=== PATIENT | female | born 1945 | race Two or more races ===

== ENCOUNTER 2024-03-06 12:46 | Outpatient (REF) | payer MEDICARE, MEDICAID, SELFPAY ==
[2024-03-06 13:19] LABS: Basophils Percent Auto 0.4 % (0.2-2.0); Eosinophils Absolute Auto 0.3 10^3/uL (0.0-0.7); Eosinophils Percent Auto 5.7 % (0.9-7.0); Hematocrit 34.6 % (36.0-48.0); Hemoglobin 10.7 g/dL (12.0-16.0); Immature Granulocytes Abs Auto 0.02 10^3/uL (0.00-0.03); Immature Granulocytes Pct Auto 0.4 % (0.0-0.5); Lymphocytes Absolute Auto 0.9 10^3/uL (1.2-3.8); Lymphocytes Percent Auto 19.4 % (20.5-60.0); Mean Corpuscular HGB Conc 30.9 g/dL (29.9-35.2); Mean Corpuscular Hemoglobin 29.2 pg (26.7-34.0); Mean Corpuscular Volume 94.5 fL (81.0-99.0); Mean Platelet Volume 10.5 fL (9.5-13.5); Monocytes Absolute Auto 0.4 10^3/uL (0.3-0.8); Monocytes Percent Auto 8.3 % (1.7-12.0); Neutrophils Absolute Auto 3.1 10^3/uL (1.4-6.5); Neutrophils Percent Auto 65.8 % (43.0-75.0); Platelet Count 217 10^3/uL (150-450); Red Blood Count 3.66 10^6/uL (4.20-5.40); Red Cell Distribution Width 15.3 % (11.0-15.0); White Blood Count 4.7 10^3/uL (4.0-11.0)
[2024-03-06 13:57] LABS: Alanine Aminotransferase 24 U/L (14-59); Albumin Globulin Ratio 0.4; Albumin Level 1.3 g/dL (3.4-5.0); Alkaline Phosphatase 150 U/L (46-116); Anion Gap 11.1; Aspartate Amino Transferase 29 U/L (15-37); BUN Creatinine Ratio 40.2; Bilirubin Total 0.4 mg/dL (0.2-1.0); Calcium 8.5 mg/dL (8.5-10.1); Carbon Dioxide 26.6 mmol/L (21.0-32.0); Chloride 111 mmol/L (98-107); Estimated GFR (African America 29 (>=60 mL/min/1.73m^2); Estimated GFR (Non-African Ame 24 (>=60 mL/min/1.73m^2); Globulin 3.7 g/dL; Glucose 112 mg/dL (74-106); Magnesium 2.1 mg/dL (1.8-2.4); Phosphorus 4.8 mg/dL (2.6-4.7); Potassium 5.7 mmol/L (3.5-5.1); Sodium 143 mmol/L (136-145)
== END 2024-03-06 12:47 | disposition home or self-care (01) ==
LOC: LAB 12:46
PROVIDERS: PCP Family Medicine; Visit Provider Family Medicine
DX: N17.9 Acute kidney failure, unspecified (principal)
CPT/HCPCS: 36415; 80053; 83735; 83880; 84100; 85025

== ENCOUNTER 2024-03-07 09:53 | Outpatient (REF) | payer MEDICARE, MEDICAID, SELFPAY ==
[2024-03-07 10:48] LABS: Anion Gap 18.1; BUN Creatinine Ratio 48.3; Calcium 8.8 mg/dL (8.5-10.1); Carbon Dioxide 22.6 mmol/L (21.0-32.0); Chloride 108 mmol/L (98-107); Estimated GFR (African America 34 (>=60 mL/min/1.73m^2); Estimated GFR (Non-African Ame 28 (>=60 mL/min/1.73m^2); Glucose 97 mg/dL (74-106); Potassium 5.7 mmol/L (3.5-5.1); Sodium 143 mmol/L (136-145)
== END 2024-03-07 09:54 | disposition home or self-care (01) ==
LOC: LAB 09:53
PROVIDERS: PCP Family Medicine; Visit Provider Family Medicine
DX: E87.5 Hyperkalemia (principal)
CPT/HCPCS: 36415; 80048

== ENCOUNTER 2024-03-15 15:17 | Outpatient (REF) | payer MEDICARE, MEDICAID, SELFPAY ==
--- OUTSIDE RECORDS SUMMARY | 2024-03-15 15:29 | XMS_ITS | CCD ---
Author Organization [facility] Care Team Providers Care Dimensional Inspector Name Role Phone [facility] Primary Care Physician PROVIDER, UNKNOWN Attending Unavailable PROVIDER, UNKNOWN Admitting Unavailable DO Charles Mercado Attending Provider [phone] [facility] Unavail able DO Muriel Le Attending Unavailable [facility] Unavail able DO Muriel Le Attending Unavailable [facility] Primary Care Provider DO Charles Mercado Attending Provider [phone] DO Amalia Mancera Referring Provider [phone] Charles Mercado Admitting Unavailable Cash, Saman Consulting Unavailable [facility] Primary Care Unavaila ble Charles Mercado Attending Unavailable Charles Mercado Admitting Unavailable [facility] Primary Care Unavaila ble Calderon Amalia Referring Unavailable Charles Mercado Attending Unavailable [facility] Primary Care Unavail able MD Rodriguez Zambrano Consulting Unavailable DANIELLE Mbsuki Admitting Unavailable DANIELLE Mbmarlinfo Attending Unavailable Betancor, Rodriguez Consulting Unavailable Betancor, Rodriguez Consulting Unavailable Fatmataor, Rodriguez Consulting Unavailable MD Tom Abreuapna Consulting Unavailable Shyamadana, Stefanie Consulting Unavailable Brady, Stefanie Consulting Unavailable MD Stefanie Abreu Consulting Unavailable [id number] Primary Care Unavail able DANIELLE Mbanefo Attending Unavailable YESSENIAKWNaeem Mbanefo Admitting Unavailable Kamadana, Stefanie Consulting Unavailable Kamadana, Stefanie Consulting Unavailable Kamadana, Stefanie Consulting Unavailable Soren Moore Attending Unavailable Unavailable Primary Care Provider Unavailabl e Allergies Allergy Classification Reported Allergen(s) Allergy Type Date of Onset Reaction(s) Facility (10 sources) Ampicillin; Translations: [ampicillin] Drug Allergy Anaphylaxis (disorder) [facility] Medications Current Medications Medication Drug Class(es) Dates Sig (Normalized) Sig (Original) albuterol 0.83 mg/ml inhalation solution (2 sources) beta2-Adrenergic Agonist Start: 12-27-2016 albuterol 0.083% Inh Madai 3 mL 2.5 mg, 3 mL, Inhalation, QID, 60 EA, Refill(s) 0, ICD 10 code- J45.901 Cancel previous order of albuterol, [facility] Start Date: 12/27/16 Status: Ordered aspirin 81 mg oral tablet (2 sources) Platelet Aggregation Inhibitor, Nonsteroidal Anti-inflammatory Drug Start: 12-26-2016 take 1 tablet by mouth once daily aspirin 81 mg oral tablet 81 mg = 1 tab(s), Oral, Daily, # 90 tab(s), Refills(s) 0 Start Date: 12/26/16 Status: Ordered atorvastatin 40 mg oral tablet (2 sources) HMG-CoA Reductase Inhibitor Start: 07-29-2014 take 1 tablet by mouth once daily atorvastatin 40 mg Tab 40 mg = 1 tab(s), Oral, Daily, # 90 tab(s), Refills(s) 0 Start Date: 07/29/14 Status: Ordered Calcium (2 sources) Phosphate Binder, Calcium Start: 01-06-2010 Calcium 600+D Oral, Daily Start Date: 01/06/10 Status: Ordered Check BMP in 3-5 days (2 sources) Start: 12-27-2016 Check BMP in 3-5 days Check BMP in 3-5 days, Fax results to primary care physician. Diagnoses : Acute kidney injury, Print Requisition, Supply Start Date: 12/27/16 Status: Ordered doxycycline hyclate 100 mg oral tablet (1 source) Tetracycline-clas s Drug Start: 10-01-2023 End: 10-11-2023 take 1 tablet by mouth every twelve hours doxycycline hyclate 100 mg Tab 100 mg = 1 tab(s), Oral, q12hr, X 10 day(s), # 20 tab(s), Refills(s) 0, Pharmacy: [facility], 152, cm, 10/01/23 21:34:00 EDT, Height/Length Dosing, 155, kg, 10/01/23 21:34:00 EDT, Weight Dosing Start Date: 10/01/23 Stop Date: 10/11/23 Status: Ordered hydroCHLOROthiazide 25 mg / lisinopril 20 mg oral tablet (2 sources) Thiazide Diuretic, Angiotensin Converting Enzyme Inhibitor Start: 01-06-2010 take 1 tablet by mouth once daily hydrochlorothiazi de-lisinopril 25 mg-20 mg Tab 1 tab(s), Oral, Daily Start Date: 01/06/10 Status: Ordered loratadine 10 mg oral tablet (2 sources) Start: 01-06-2010 take 1 tablet by mouth once daily loratadine 10 mg Tab 10 mg = 1 tab(s), Oral, Daily Start Date: 01/06/10 Status: Ordered meloxicam 15 mg oral tablet (2 sources) Nonsteroidal Anti-inflammatory Drug Start: 07-29-2014 meloxicam 15 mg oral tablet 15 mg = 1 tab(s), Refills(s) 0 Start Date: 07/29/14 Status: Ordered naproxen 500 mg oral tablet (1 source) Nonsteroidal Anti-inflammatory Drug Start: 10-01-2023 take 1 tablet by mouth twice daily as needed for pain Naprosyn 500 mg Tab 500 mg = 1 tab(s), Oral, BID, PRN for pain, # 20 tab(s), Refills(s) 0, Pharmacy: [facility], 152, cm, 10/01/23 21:34:00 EDT, Height/Length Dosing, 155, kg, 10/01/23 21:34:00 EDT, Weight Dosing Start Date: 10/01/23 Status: Ordered traMADol hydrochloride 50 mg oral tablet (2 sources) Opioid Agonist Start: 07-29-2014 take 1 tablet by mouth every twelve hours as needed for pain traMADOL 50 mg Tab 50 mg = 1 tab(s), Oral, q12hr, PRN for pain, # 30 tab(s), Refills(s) 0 Start Date: 07/29/14 Status: Ordered Problems Problem Classification Problem Date Documented Date Episodic/Chronic Acute and unspecified renal failure (7 sources) Acute kidney failure, unspecified; Translations: [N17.9] Onset: 02-23-2024 Episodic Asthma (2 sources) Asthma 06-01-2013 Chronic Bacterial infection; unspecified site (2 sources) Rheumatic fever 06-01-2013 Episodic Blindness and vision defects (1 source) Visual disturbance; Translations: [Unspecified visual disturbance] Onset: 10-19-2021 Episodic Cardiac dysrhythmias (1 source) Unspecified atrial fibrillation; Translations: [Unspecified atrial fibrillation] Onset: 10-18-2021 Chronic Disorders of lipid metabolism (3 sources) Hypercholesterolemia; Translations: [Pure hypercholesterolemia, unspecified] Onset: 01-19-2023 06-01-2013 Chronic Esophageal disorders (2 sources) Gastroesophageal reflux disease 06-01-2013 Chronic Essential hypertension (2 sources) Hypertensive disorder 12-28-2009 Chronic Malaise and fatigue (14 sources) Weakness; Translations: [Other malaise] Onset: 02-23-2024 Episodic Nonmalignant breast conditions (1 source) Mastodynia; Translations: [Mastodynia] Onset: 11-22-2023 Episodic Osteoarthritis (1 source) Localized, primary osteoarthritis of the shoulder region; Translations: [Primary osteoarthritis, unspecified shoulder] Onset: 10-01-2023 Chronic Other nutritional; endocrine; and metabolic disorders (2 sources) Obesity 09-07-2013 Chronic Other nutritional; endocrine; and metabolic disorders (7 sources) Other disorders of plasma-protein metabolism, not elsewhere classified; Translations: [E88.09] Onset: 02-23-2024 Chronic Skin and subcutaneous tissue infections (1 source) Cellulitis of abdominal wall ; Translations: [Cellulitis of abdominal wall] Onset: 10-01-2023 Episodic Unclassified (1 source) GALL BLADDER( Confirmed ) 12-31-2009 Unclassified (1 source) GALL BLADDER 12-31-2009 Unclassified (1 source) Morbid (severe) obesity due to excess calories; Translations: [Morbid (severe) obesity due to excess calories] Onset: 01-19-2023 Varicose veins of lower extremity (7 sources) 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; Translations: [I83.009] Onset: 02-23-2024 Episodic Results Test Name Value Interpretation Reference Range Facility ALL BASIC METABOLIC PANELon 03-07-2024 Anion gap [Moles/Vol] 18.1 mmol/L NO [facility] Calcium [Mass/Vol] 8.8 mg/dL 8.5 - 10. 1 mg/dL [facility] Chloride [Moles/Vol] 108 mmol/L High 98 - 10 7 mmol/L [facility] CO2 [Moles/Vol] 22.6 mmol/L 21.0 - 32.0 mmol/L [facility] Creatinine [Mass/Vol] 1.74 mg/dL High 0.55 - 1.02 mg/dL [facility] GFR/1.73 sq M.predicted CKD-EPI (S/P/Bld) [Vol rate/Area] 34 Low >=60 mL/min/1.73 m 2 [facility] Glucose [Mass/Vol] 97 mg/dL 74 - 106 mg/dL [facility] Interpretation and review of laboratory results Abnormal [facility] Potassium [Moles/Vol] 5.7 mmol/L High 3.5 - 5.1 mmol/L [facility] Sodium [Moles/Vol] 143 mmol/L 136 - 145 mmol/L [facility] TBH EGFR-NON AF CHILEAN 28 Low >=60 mL/min/1.73 m 2 [facility] Urea nitrogen [Mass/Vol] 84 mg/dL Critically high 7.0 - 18.0 mg/dL [facility] Comment on above: RESULTS CALLED TO GREGORY MASCORRO RN at 1120 Urea nitrogen/Creatinine [Mass ratio] 48.3 mg/mg [facility] ALL CBC WITH AUTO DIFFon BASOPHILS ABSOLUTE AUTO 0 N [facility] Basophils/100 WBC (Bld) 0.4 % 0.2 - 2.0 % [facility] Eosinophils/100 WBC (Bld) 5.7 % 0.9 - 7.0 % [facility] Erythrocyte distribution width (RBC) [Ratio] 15.3 % High 11.0 - 15.0 % [facility] Hematocrit (Bld) [Volume fraction] 34.6 % Low 36.0 - 48.0 % [facility] Hemoglobin (Bld) [Mass/Vol] 10.7 g/dL Low 12.0 - 16.0 g/dL [facility] IMMATURE GRANULOCYTES ABS AUTO 0.02 [facility] Immature granulocytes/100 WBC (Bld) 0.4 % 0.0 - 0.5 % [facility] Interpretation and review of laboratory results Abnormal [facility] LYMPHOCYTES ABSOLUTE AUTO 0.9 Low [facility] Lymphocytes/100 WBC (Bld) 19.4 % Low 20.5 - 60.0 % [facility] MCH (RBC) [Entitic mass] 29.2 pg 26.7 - 34.0 pg [facility] MCHC (RBC) [Mass/Vol] 30.9 g/dL 29.9 - 35.2 g/dL [facility] MCV (RBC) [Entitic vol] 94.5 fL 81.0 - 99.0 fL [facility] MONOCYTES ABSOLUTE AUTO 0.4 N [facility] Monocytes/100 WBC (Bld) 8.3 % 1.7 - 12.0 % [facility] NEUTROPHILS ABSOLUTE AUTO 3.1 [facility] Neutrophils/100 WBC (Bld) 65.8 % 43.0 - 75.0 % [facility] Platelet mean volume (Bld) [Entitic vol] 10.5 fL 9.5 - 13.5 fL [facility] EO # 0.3 [facility] PLT 217 [facility] RBC 3.66 Low [facility] WBC 4.7 [facility] Immunoglobs. A/E/G/Mon 03-05 IgA Quant duplicate Invalid Interpretation Code [facility] Comment on above: Performed By: #### 1 [id number] #### [facility] [address] [place] [address] IgG Quant duplicate Invalid Interpretation Code [facility] Comment on above: Performed By: #### 1 [id number] #### [facility] [address] [place] [address] IgM Quant duplicate Invalid Interpretation Code [facility] Comment on above: Performed By: #### 1 [id number] #### [facility] [address] [place] [address] MANDI w/Reflex if POSon 2023 Nuclear Ab Ql (S) Negative Invalid Interpretation Code Negative [facility] Comment on above: Result Comment: Perf ormed at: [facility] [address] [place], [place] [id number] PhD Meme Becker Performed By: #### 1 [id number] #### [facility] [address] [place] [id number] ANCAon 03-01-2024 Neutrophil cytoplasmic Ab.classic IF (S) [Titer] <1:20 Invalid Interpretation Code Neg:<1:20 [facility] Comment on above: Performed By: #### 2 [id number] #### [facility] [address] [place] [address] Neutrophil cytoplasmic Ab.perinuclear IF (S) [Titer] <1:20 Invalid Interpretation Code Neg:<1:20 [facility] Comment on above: Result Comment: The presence of positive fluorescence exhibiting P-ANCA or C-ANCA patterns alone is not specific for the diagnosis of Patricia's Granulomatosis (WG) or microscopic polyangiitis. Decisions about treatment should not be based solely on ANCA IFA results. The International ANCA [employer] Consensus recommends follow up testing of positive sera with both CO-3 and MPO-ANCA enzyme immunoassays. As many as 5% serum samples are positive only by EIA. Ref. AM J Clin Pathol 1999;111:507-513. Performed By: #### 2 [id number] #### [facility] [address] [place] [address] Neutrophil cytoplasmic Ab.perinuclear.atypical IF (S) [Titer] <1:20 Invalid Interpretation Code Neg:<1:20 [facility] Comment on above: Result Comment: The atypical pANCA pattern has been observed in a significant percentage of patients with ulcerative colitis, primary sclerosing cholangitis and autoimmune hepatitis. Performed at: [facility] [id number] PhD Meme Becker Performed By: #### 2 [id number] #### [facility] [address] [place] [address] C3on 03-01-2024 Complement C3 [Mass/Vol] 150 mg/dL Invalid Interpretation Code [id number] [facility] Comment on above: Result Comment: Perf ormed at: [facility] [id number] PhD Meme Becker Performed By: #### 2 [id number] #### [facility] [address] [place] [address] C4on 03-01-2024 Complement C4 [Mass/Vol] 23 mg/dL Invalid Interpretation Code [facility] Comment on above: Result Comment: Perf ormed at: [facility] [address], [place] [id number] PhD Meme Becker Performed By: #### 2 [id number] #### [facility] [address] [place] [address] Immunofixation Serumon 03-01 IgA [Mass/Vol] 467 mg/dL High 64-422 [facility] Comment on above: Performed By: #### 1 [id number] #### [facility] [address] [place] [address] IgG [Mass/Vol] 892 mg/dL Invalid Interpretation Code [id number] [facility] Comment on above: Performed By: #### 1 [id number] #### [facility] [address] [place] [address] IgM [Mass/Vol] 132 mg/dL Invalid Interpretation Code [facility] Comment on above: Result Comment: Perf ormed at: [facility] [address], [place] [id number] PhD Meme Becker Performed By: #### 1 [id number] #### [facility] [address] [place] [address] Protein Fractions [Interp] Comment Invalid Interpretation Code [facility] Comment on above: Result Comment: No m onoclonality detected. Performed By: #### 1 [id number] #### [facility] [address] [place] [address] Immunoglobs. A/E/G/Mon 03-01 IgE Qn 4437 International_Unit/mL High 6-495 [facility] Comment on above: Result Comment: Perf ormed at: [facility] [id number] MD Mario Lundberg Performed By: #### 1 [id number] #### [facility] [address] [place] [address] BMPon 02-29-2024 Anion gap [Moles/Vol] 7 mmol/L Normal 6-16 [facility] Comment on above: Performed By: #### 2 [id number] #### [facility] [address] [place] [address] Calcium [Mass/Vol] 7.7 mg/dL Low 8.9-11.1 [facility] Comment on above: Performed By: #### 2 [id number] #### [facility] [address] [place] [address] Chloride [Moles/Vol] 106 mmol/L Normal 101-111 [facility] Comment on above: Performed By: #### 2 [id number] #### [facility] [address] [place] [address] CO2 [Moles/Vol] 26 mmol/L Normal 21-31 [facility] Comment on above: Performed By: #### 2 [id number] #### [facility] [address] [place] [address] Creatinine [Mass/Vol] 1.5 mg/dL High 0.5-1.3 [facility] Comment on above: Performed By: #### 2 [id number] #### [facility] [address] [place] [address] Glucose [Mass/Vol] 100 mg/dL Normal 55-199 [facility] Comment on above: Performed By: #### 2 [id number] #### [facility] [address] [place] [address] Potassium [Moles/Vol] 4.7 mmol/L Normal 3.5-5.3 [facility] Comment on above: Performed By: #### 2 [id number] #### [facility] [address] [place] [address] Sodium [Moles/Vol] 134 mmol/L Low 135-145 [facility] Comment on above: Performed By: #### 2 [id number] #### [facility] [address] [place] [address] Urea nitrogen [Mass/Vol] 67 mg/dL High 5-21 [facility] Comment on above: Performed By: #### 2 [id number] #### [facility] [address] [place] [address] Urea nitrogen/Creatinine [Mass ratio] 45 No Units High 10-20 [facility] Comment on above: Performed By: #### 2 [id number] #### [facility] [address] [place] [address] Discharge Note-Nursingon Discharge Note-Nursing Discharge Note-Nursing JACLYN AN :1945 Visit Date:02/23/2024 Inpatient Discharge Instructions Your Care Team Admitting Physician - Zoe SANTOS MD Consulting Physician - Stefanie Abreu MD Reason for Your Visit Pt presents to ED with complaints of increased leg edema/weeping. Pt also concerned about living situation as unable to perfom ADL's-family typically helps care for pt and per pt they aren't helping enough. wanting SNF Your Diagnosis TATYANA (acute kidney injury) ATN (acute tubular necrosis) Proteinuria Vitamin D deficiency UTI (urinary tract infection) with pyuria Clostridium difficile diarrhea Hypocalcemia General weakness Physical deconditioning Hypothyroidism Venous ulcer of leg Hypoalbuminemia Troponin level elevated Atrial fibrillation HTN - Hypertension Hypercholesterolemia Morbid obesity Abdominal pain Edema Medical problem - minor Suicidal ideation Tests Performed MANDI w/Reflex if POS -- Results Pending -- ANCA -- Results Pending -- C3 Complement -- Results Pending -- C4 Complement -- Results Pending -- Immunofixation Serum -- Results Pending -- Immunofixation, Urine -- Results Pending -- Immunoglobs. A/E/G/M -- Results Pending -- Echo Transthoracic w/ Contrast Lower Extremity Venous Duplex US Bilateral US PVR Lower EXT Limited US Renal XR Chest Single View Please visit your patient portal for your results or contact your primary care physician. This Is Your Medications List Ensure acetaminophen (acetaminophen 325 mg Tab) albuterol (albuterol 0.083% Inh Madai 3 mL) albuterol (albuterol 0.083% Inh Madai 3 mL) apixaban (apixaban 5 mg oral tablet) aspirin (aspirin 81 mg oral tablet) atorvastatin (atorvastatin 40 mg Tab) calcium carbonate (calcium carbonate 500 mg Chew Tab) calcium-vitamin D (Calcium 600+D) ergocalciferol (ergocalciferol 50,000 intl units Cap) levothyroxine (levothyroxine 25 mcg (0.025 mg) Tab) loratadine (loratadine 10 mg Tab) vancomycin (vancomycin 125 mg Cap) [Image Removed: STOP]Stop taking these medications lisinopril (lisinopril 40 mg Tab) Procedure History C SECTION. Discharge Vitals Temperature (Axillary) 36.7 ???C Heart Rate (Monitored) 78 Respiratory Rate 17 Blood Pressure 119/73 Weight 162.2 kg What to do next Instructions From Your Doctor Event Name Event Result Discharge Activity Ambulate as tolerated Discharge Restrictions No restrictions Discharge Diet(s) Fat Modified- 50 gram, Low Sodium- 2000 mg, Other: Ensure TID meals Pending Diagnostic Test Results None Discharge Instructions FU with PCP on discharge- apt with depot agent on 04/11/24 at 0900- call office to confirm location and provider New Follow Up Appointments after Discharge Follow Up with Amanda DASH, [facility] When: 04/11/2024 09:00 AM EST Comments: *Call the office to confirm this is at [facility] Where: [place] [address]- Follow Up with Primary Care Provider When: Within 3 to 5 days Where: Medications What How Much When Instructions Next Dose New apixaban (apixaban 5 mg oral tablet) 1 Tablets By Mouth 2 times a day New calcium carbonate (calcium carbonate 500 mg Chew Tab) 1 Tablets By Mouth 2 times a day New Ensure 237 Milliliter By Mouth Twice a day (with meals) New ergocalciferol (ergocalciferol 50,000 intl units Cap) 1 Capsules By Mouth Tuesday & Tuesday New levothyroxine (levothyroxine 25 mcg (0.025 mg) Tab) 1 Tablets By Mouth Every day New vancomycin (vancomycin 125 mg Cap) 1 Capsules By Mouth 4 times a day Duration: 10 Days To complete 14 day course Changed albuterol (albuterol 0.083% Inh Madai 3 mL) 3 Milliliter Inhalation Every 2 hours as needed for Wheezing Changed albuterol (albuterol 0.083% Inh Madai 3 mL) 3 Milliliter Inhalation 4 times a day Unchanged acetaminophen (acetaminophen 325 mg Tab) 2 Tablets By Mouth Every 6 hours as needed for for pain Unchanged aspirin (aspirin 81 mg oral tablet) 1 Tablets By Mouth Every day Unchanged atorvastatin (atorvastatin 40 mg Tab) 1 Tablets By Mouth Every day Unchanged calcium-vitamin D (Calcium 600+D) 1 Tablets By Mouth Every day Unchanged loratadine (loratadine 10 mg Tab) 1 Tablets By Mouth Every day as needed for Allergy symptoms What How Much When Comments Stop Taking lisinopril (lisinopril 40 mg Tab) 1 Tablets By Mouth Every day Test Results CBC BMP WBC: 4.2 E9/L (02/28/24 06:01:00) Glucose Lvl: 100 mg/dL (02/29/24 06:13:00) RBC: 3.7 E12/L Low (02/28/24 06:01:00) BUN: 67 mg/dL High (02/29/24 06:13:00) HGB: 11.2 gm/dL Low (02/28/24 06:01:00) Creatinine: 1.5 mg/dL High (02/29/24 06:13:00) Hct: 33.1 % Low (02/28/24 06:01:00) BUN/Creat Ratio: 45 High (02/29/24 06:13:00) MCV: 89 fL (02/28/24 06:01:00) Sodium Lvl: 134 mmol/L Low (02/29/24 06:13:00) MCH: 30.2 pg (02/28/24 06:01:00) Potassium Lvl: 4.7 mmol/L ( (more content not included)... Normal [facility] [place] 02-29-2024 WB Tube Collected Yes Invalid Interpretation Code [facility] Comment on above: Performed By: #### 1 [id number] #### [facility] [address] [place] [id number] Immunofixation, Urineon 02-18 Interpretation Immunofixation (U) [Interp] Comment Invalid Interpretation Code [facility] Comment on above: Result Comment: No m onoclonality detected. Performed at: [facility], [place] [id number] PhD Meme Becker Performed By: #### 3 [id number] #### [facility] [address] [place] [address] Inpatient Patient Summaryon 02-29-2024 Inpatient Patient Summary Inpatient Patient Summary JACLYN AN :1945 Visit Date:02/23/2024 Inpatient Discharge Instructions Your Care Team Admitting Physician - Zoe SANTOS MD Consulting Physician - Stefanie Abreu MD Reason for Your Visit Pt presents to ED with complaints of increased leg edema/weeping. Pt also concerned about living situation as unable to perfom ADL's-family typically helps care for pt and per pt they aren't helping enough. wanting SNF Your Diagnosis TATYANA (acute kidney injury) ATN (acute tubular necrosis) Proteinuria Vitamin D deficiency UTI (urinary tract infection) with pyuria Clostridium difficile diarrhea Hypocalcemia General weakness Physical deconditioning Hypothyroidism Venous ulcer of leg Hypoalbuminemia Troponin level elevated Atrial fibrillation HTN - Hypertension Hypercholesterolemia Morbid obesity Abdominal pain Edema Medical problem - minor Suicidal ideation Tests Performed MANDI w/Reflex if POS -- Results Pending -- ANCA -- Results Pending -- C3 Complement -- Results Pending -- C4 Complement -- Results Pending -- Immunofixation Serum -- Results Pending -- Immunofixation, Urine -- Results Pending -- Immunoglobs. A/E/G/M -- Results Pending -- Echo Transthoracic w/ Contrast Lower Extremity Venous Duplex US Bilateral US PVR Lower EXT Limited US Renal XR Chest Single View Please visit your patient portal for your results or contact your primary care physician. This Is Your Medications List Ensure acetaminophen (acetaminophen 325 mg Tab) albuterol (albuterol 0.083% Inh Madai 3 mL) albuterol (albuterol 0.083% Inh Madai 3 mL) apixaban (apixaban 5 mg oral tablet) aspirin (aspirin 81 mg oral tablet) atorvastatin (atorvastatin 40 mg Tab) calcium carbonate (calcium carbonate 500 mg Chew Tab) calcium-vitamin D (Calcium 600+D) ergocalciferol (ergocalciferol 50,000 intl units Cap) levothyroxine (levothyroxine 25 mcg (0.025 mg) Tab) loratadine (loratadine 10 mg Tab) vancomycin (vancomycin 125 mg Cap) [Image Removed: STOP]Stop taking these medications lisinopril (lisinopril 40 mg Tab) Procedure History C SECTION. Discharge Vitals Temperature (Axillary) 36.7 ???C Heart Rate (Monitored) 78 Respiratory Rate 17 Blood Pressure 119/73 Weight 162.2 kg What to do next Instructions From Your Doctor Event Name Event Result Discharge Activity Ambulate as tolerated Discharge Restrictions No restrictions Discharge Diet(s) Fat Modified- 50 gram, Low Sodium- 2000 mg, Other: Ensure TID meals Pending Diagnostic Test Results None Discharge Instructions FU with PCP on discharge- apt with depot agent on 04/11/24 at 0900- call office to confirm location and provider New Follow Up Appointments after Discharge Follow Up with Amanda DASH, MARIO Singh When: 04/11/2024 09:00 AM EST Comments: *Call the office to confirm this is at [facility] Where: [place] [address]- Follow Up with Primary Care Provider When: Within 3 to 5 days Where: Medications What How Much When Instructions Next Dose New apixaban (apixaban 5 mg oral tablet) 1 Tablets By Mouth 2 times a day 02/28 @ 0900pm New calcium carbonate (calcium carbonate 500 mg Chew Tab) 1 Tablets By Mouth 2 times a day 02/28 @ 0900pm New Ensure 237 Milliliter By Mouth Twice a day (with meals) 02/28 @ 0500pm New ergocalciferol (ergocalciferol 50,000 intl units Cap) 1 Capsules By Mouth Tuesday & Friday 03/02 @ 0900am New levothyroxine (levothyroxine 25 mcg (0.025 mg) Tab) 1 Tablets By Mouth Every day 02/28 @ 0900am New vancomycin (vancomycin 125 mg Cap) 1 Capsules By Mouth 4 times a day Duration: 10 Days To complete 14 day course 02/28 @ 0100pm,0500pm Changed albuterol (albuterol 0.083% Inh Madai 3 mL) 3 Milliliter Inhalation Every 2 hours as needed for Wheezing as needed Changed albuterol (albuterol 0.083% Inh Madai 3 mL) 3 Milliliter Inhalation 4 times a day resume Unchanged acetaminophen (acetaminophen 325 mg Tab) 2 Tablets By Mouth Every 6 hours as needed for for pain as needed Unchanged aspirin (aspirin 81 mg oral tablet) 1 Tablets By Mouth Every day 02/28 @ 0900am Unchanged atorvastatin (atorvastatin 40 mg Tab) 1 Tablets By Mouth Every day 02/28 @ 0900am Unchanged calcium-vitamin D (Calcium 600+D) 1 Tablets By Mouth Every day 02/28 @ 00am Unchanged loratadine (loratadine 10 mg Tab) 1 Tablets By Mouth Every day as needed for Allergy symptoms as needed What How Much When Comments Stop Taking lisinopril (lisinopril 40 mg Tab) 1 Tablets By Mouth Every day Test Results CBC BMP WBC: 4.2 E9/L (02/28/24 06:01:00) Glucose Lvl: 100 mg/dL (02/29/24 06:13:00) RBC: 3.7 E12/L Low (02/28/24 06:01:00) BUN: 67 mg/dL High (02/29/24 06:13:00) HGB: 11.2 gm/dL Low (02/28/24 06:01:00) Creatinine: 1.5 mg/dL High (02/29/24 06:13:00) Hct: 33.1 % Low (02/28/24 06:01:00) BUN/Creat (more content not included)... Normal [facility] Interdisciplinary Note - Pablo e Manageron 02-29-2024 Interdisciplinary Note - Brand Marketing Coordinator Interdisciplinary Note - Brand Marketing Coordinator This SW met with patient today to let her know that [facility] had accepted and precert was obtained. She was made aware of the plan for d/c today. IMM discussed and patient voiced understanding of her rights. TC placed to patient's granddaughter and a message was left for her letting her know of the plan for d/c. Normal [facility] Comment on above: Result Comment: Elec tronically Signed By: An MAE, Jailyn Sharma\.yolanda\Date and Time Signed: 02/29/24 12:46 EST eGFRon 02-29-2024 eGFR 36 mL/min/1.73 m2 Low >=59 [facility] Comment on above: Performed By: #### 1 [id number] #### [facility] [address] [place] [address] CBC w/ Auto Diffon 4 Basophils/100 WBC (Bld) 0.5 % Normal 0.0-2.0 [facility] Comment on above: Performed By: #### 2 [id number] #### [facility] [address] [place] [address] Basophils/Leukocytes Auto (Bld) [Pure # fraction] 0.0 E9/L Normal 0.0-0.2 [facility] Comment on above: Performed By: #### 2 [id number] #### [facility] [address] [place] [address] Eosinophils (Bld) [#/Vol] 0.5 E9/L Normal 0.0-0.5 [facility] Comment on above: Performed By: #### 2 [id number] #### [facility] [address] [place] [address] Eosinophils/100 WBC (Bld) 11.1 % High 0.0-8.0 [facility] Comment on above: Performed By: #### 2 [id number] #### [facility] [address] [place] [address] Erythrocyte distribution width (RBC) [Ratio] 15.3 % High 10.9-14.2 [facility] Comment on above: Performed By: #### 2 [id number] #### [facility] [address] [place] [address] Hematocrit (Bld) [Volume fraction] 33.1 % Low 34.0-46.0 [facility] Comment on above: Performed By: #### 2 [id number] #### [facility] [address] [place] [address] Hemoglobin (Bld) [Mass/Vol] 11.2 g/dL Low 12.0-16.0 [facility] Comment on above: Performed By: #### 2 [id number] #### [facility] [address] [place] [address] Lymphocytes (Bld) [#/Vol] 1.1 E9/L Normal 1.0-4.0 [facility] Comment on above: Performed By: #### 2 [id number] #### [facility] [address] [place] [address] Lymphocytes/100 WBC (Bld) 25.9 % Normal 14.0-50.0 [facility] Comment on above: Performed By: #### 2 [id number] #### [facility] [address] [place] [address] MCH (RBC) [Entitic mass] 30.2 pg Normal 27.0-34.0 [facility] Comment on above: Performed By: #### 2 [id number] #### [facility] [address] [place] [address] MCHC (RBC) [Mass/Vol] 34.0 g/dL Normal 31.4-36.0 [facility] Comment on above: Performed By: #### 2 [id number] #### [facility] [address] [place] [address] MCV (RBC) [Entitic vol] 89.0 fL Normal 80.0-100.0 [facility] Comment on above: Performed By: #### 2 [id number] #### [facility] [address] [place] [address] Monocytes (Bld) [#/Vol] 0.4 E9/L Normal 0.2-1.0 [facility] Comment on above: Performed By: #### 2 [id number] #### [facility] [address] [place] [address] Neutrophils (Bld) [#/Vol] 2.2 E9/L Normal 2.0-7.5 [facility] Comment on above: Performed By: #### 2 [id number] #### [facility] [address] [place] [address] Neutrophils/100 WBC (Bld) 53.5 % Normal 36.0-75.0 [facility] Comment on above: Performed By: #### 2 [id number] #### [facility] [address] [place] [address] Platelet mean volume (Bld) [Entitic vol] 8.7 fL Normal 6.4-10.8 [facility] Comment on above: Performed By: #### 2 [id number] #### [facility] [address] [place] [address] Platelets (Bld) [#/Vol] 191.0 E9/L Normal 150.0-500.0 [facility] Comment on above: Performed By: #### 2 [id number] #### [facility] [address] [place] [address] RBC (Bld) [#/Vol] 3.7 E12/L Low 4.3-5.9 [facility] Comment on above: Performed By: #### 2 [id number] #### [facility] [address] [place] [address] WBC corrected for nucl RBC Auto (Bld) [#/Vol] 4.2 E9/L Normal 4.0-11.0 [facility] Comment on above: Performed By: #### 2 [id number] #### [facility] [address] [place] [address] CMPon 02-28-2024 Albumin [Mass/Vol] 1.8 g/dL Low 3.3-5.0 [facility] Comment on above: Performed By: #### 2 [id number] #### [facility] [address] [place] [address] Albumin/Globulin (S) [Mass conc ratio] 0.6 Low 1.1-2.2 [facility] Comment on above: Performed By: #### 2 [id number] #### [facility] [address] [place] [address] ALP [Catalytic activity/Vol] 102 Int._Unit/L High 21-98 [facility] Comment on above: Performed By: #### 2 [id number] #### [facility] [address] [place] [address] ALT No additional P-5'-P [Catalytic activity/Vol] 13 Int._Unit/L Normal 6-46 [facility] Comment on above: Performed By: #### 2 [id number] #### [facility] [address] [place] [address] Anion gap [Moles/Vol] 6 mmol/L Normal 6-16 [facility] Comment on above: Performed By: #### 2 [id number] #### [facility] [address] [place] [address] AST [Catalytic activity/Vol] 19 Int._Unit/L Normal 5-43 [facility] Comment on above: Performed By: #### 2 [id number] #### [facility] [address] [place] [address] Bilirubin [Mass/Vol] 0.5 mg/dL Normal 0.0-1.1 [facility] Comment on above: Performed By: #### 2 [id number] #### [facility] [address] [place] [address] Calcium [Mass/Vol] 7.6 mg/dL Low 8.9-11.1 [facility] Comment on above: Performed By: #### 2 [id number] #### [facility] [address] [place] [address] Chloride [Moles/Vol] 108 mmol/L Normal 101-111 [facility] Comment on above: Performed By: #### 2 [id number] #### [facility] [address] [place] [address] CO2 [Moles/Vol] 27 mmol/L Normal 21-31 [facility] Comment on above: Performed By: #### 2 [id number] #### [facility] [address] [place] [address] Creatinine [Mass/Vol] 1.4 mg/dL High 0.5-1.3 [facility] Comment on above: Performed By: #### 2 [id number] #### [facility] [address] [place] [address] Globulin (S) [Mass/Vol] 2.8 g/dL Normal 1.4-4.0 [facility] Comment on above: Performed By: #### 2 [id number] #### [facility] [address] [place] [address] Glucose [Mass/Vol] 96 mg/dL Normal 55-199 [facility] Comment on above: Performed By: #### 2 [id number] #### [facility] [address] [place] [address] Potassium [Moles/Vol] 4.6 mmol/L Normal 3.5-5.3 [facility] Comment on above: Performed By: #### 2 [id number] #### [facility] [address] [place] [address] Protein [Mass/Vol] 4.6 g/dL Low 6.0-7.8 [facility] Comment on above: Performed By: #### 2 [id number] #### [facility] [address] [place] [address] Sodium [Moles/Vol] 136 mmol/L Normal 135-145 [facility] Comment on above: Performed By: #### 2 [id number] #### [facility] [address] [place] [address] Urea nitrogen [Mass/Vol] 68 mg/dL High 5-21 [facility] Comment on above: Performed By: #### 2 [id number] #### [facility] [address] [place] [address] Urea nitrogen/Creatinine [Mass ratio] 49 No Units High 10-20 [facility] Comment on above: Performed By: #### 2 [id number] #### [facility] [address] [place] [address] Interdisciplinary Note - Pablo e Manageron 02-28-2024 Interdisciplinary Note - Brand Marketing Coordinator Interdisciplinary Note - Brand Marketing Coordinator This SW was informed by [facility] this morning that they no longer have a bed available for patient at this time, therefore they will not be submitting for a new precert at this time. Per Hospitalist, patient likely will be ready for d/c either later today or tomorrow. SW sent referral to patient/family's 3rd choice of [facility] for review and it is pending. Per Hospitalist, patient somewhat confused at this time so SW followed up with family about this change of SNF. SW called Miriam and explained the situation to her. She voiced understanding and was agreeable to [facility]. SW let her know to contact SW if patient's son and DIL wanted a different facility, however she didn't think they would since she resides in [place] and can visit patient there. [facility] has accepted patient, pending precert. Normal [facility] Comment on above: Result Comment: Elec tronically Signed By: An MARTINEZW, Jailyn Sharma\.br\Date and Time Signed: 02/28/24 14:03 EST eGFRon 02-28-2024 eGFR 39 mL/min/1.73 m2 Low >=59 [facility] Comment on above: Performed By: #### 1 [id number] #### [facility] [address] [place] [address] BMPon 02-27-2024 Anion gap [Moles/Vol] 7 mmol/L Normal 6-16 [facility] Comment on above: Performed By: #### 2 [id number] #### [facility] [address] [place] [address] Calcium [Mass/Vol] 7.6 mg/dL Low 8.9-11.1 [facility] Comment on above: Performed By: #### 2 [id number] #### [facility] [address] [place] [address] Chloride [Moles/Vol] 107 mmol/L Normal 101-111 [facility] Comment on above: Performed By: #### 2 [id number] #### [facility] [address] [place] [address] CO2 [Moles/Vol] 27 mmol/L Normal 21-31 [facility] Comment on above: Performed By: #### 2 [id number] #### [facility] [address] [place] [address] Creatinine [Mass/Vol] 1.7 mg/dL High 0.5-1.3 [facility] Comment on above: Performed By: #### 2 [id number] #### [facility] [address] [place] [address] Glucose [Mass/Vol] 106 mg/dL Normal 55-199 [facility] Comment on above: Performed By: #### 2 [id number] #### [facility] [address] [place] [address] Potassium [Moles/Vol] 4.2 mmol/L Normal 3.5-5.3 [facility] Comment on above: Performed By: #### 2 [id number] #### [facility] [address] [place] [address] Sodium [Moles/Vol] 137 mmol/L Normal 135-145 [facility] Comment on above: Performed By: #### 2 [id number] #### [facility] [address] [place] [address] Urea nitrogen [Mass/Vol] 71 mg/dL High 5-21 [facility] Comment on above: Performed By: #### 2 [id number] #### [facility] [address] [place] [address] Urea nitrogen/Creatinine [Mass ratio] 42 No Units High 10-20 [facility] Comment on above: Performed By: #### 2 [id number] #### [facility] [address] [place] [address] CBC w/ Auto Diffon 4 Basophils/100 WBC (Bld) 0.5 % Normal 0.0-2.0 [facility] Comment on above: Performed By: #### 2 [id number] #### [facility] [address] [place] [address] Basophils/Leukocytes Auto (Bld) [Pure # fraction] 0.0 E9/L Normal 0.0-0.2 [facility] Comment on above: Performed By: #### 2 [id number] #### [facility] [address] [place] [address] Eosinophils (Bld) [#/Vol] 0.4 E9/L Normal 0.0-0.5 [facility] Comment on above: Performed By: #### 2 [id number] #### [facility] [address] [place] [address] Eosinophils/100 WBC (Bld) 11.2 % High 0.0-8.0 [facility] Comment on above: Performed By: #### 2 [id number] #### [facility] [address] [place] [address] Erythrocyte distribution width (RBC) [Ratio] 15.0 % High 10.9-14.2 [facility] Comment on above: Performed By: #### 2 [id number] #### [facility] [address] [place] [address] Hematocrit (Bld) [Volume fraction] 33.7 % Low 34.0-46.0 [facility] Comment on above: Performed By: #### 2 576011 #### [facility] [address] [place] [address] Hemoglobin (Bld) [Mass/Vol] 11.4 g/dL Low 12.0-16.0 [facility] Comment on above: Performed By: #### 2 [id number] #### [facility] [address] [place] [address] Lymphocytes (Bld) [#/Vol] 1.0 E9/L Normal 1.0-4.0 [facility] Comment on above: Performed By: #### 2 [id number] #### [facility] [address] [place] [address] Lymphocytes/100 WBC (Bld) 24.6 % Normal 14.0-50.0 [facility] Comment on above: Performed By: #### 2 [id number] #### [facility] [address] [place] [address] MCH (RBC) [Entitic mass] 30.3 pg Normal 27.0-34.0 [facility] Comment on above: Performed By: #### 2 [id number] #### [facility] [address] [place] [address] MCHC (RBC) [Mass/Vol] 33.9 g/dL Normal 31.4-36.0 [facility] Comment on above: Performed By: #### 2 [id number] #### [facility] [address] [place] [address] MCV (RBC) [Entitic vol] 89.5 fL Normal 80.0-100.0 [facility] Comment on above: Performed By: #### 2 [id number] #### [facility] [address] [place] [address] Monocytes (Bld) [#/Vol] 0.4 E9/L Normal 0.2-1.0 [facility] Comment on above: Performed By: #### 2 [id number] #### [facility] [address] [place] [address] Neutrophils (Bld) [#/Vol] 2.1 E9/L Normal 2.0-7.5 [facility] Comment on above: Performed By: #### 2 957052 #### [facility] [address] [place] [address] Neutrophils/100 WBC (Bld) 52.9 % Normal 36.0-75.0 [facility] Comment on above: Performed By: #### 2 [id number] #### [facility] [address] [place] [address] Platelet mean volume (Bld) [Entitic vol] 8.3 fL Normal 6.4-10.8 [facility] Comment on above: Performed By: #### 2 [id number] #### [facility] [address] [place] [address] Platelets (Bld) [#/Vol] 198.0 E9/L Normal 150.0-500.0 [facility] Comment on above: Performed By: #### 2 185648 #### [facility] [address] [place] [address] RBC (Bld) [#/Vol] 3.8 E12/L Low 4.3-5.9 [facility] Comment on above: Performed By: #### 2 [id number] #### [facility] [address] [place] [address] WBC corrected for nucl RBC Auto (Bld) [#/Vol] 4.0 E9/L Normal 4.0-11.0 [facility] Comment on above: Result Comment: Bella pheral smear review performed. Performed By: #### 2 214225 #### [facility] [address] [place] [address] Interdisciplinary Note - Pablo e Manageron 02-27-2024 Interdisciplinary Note - Brand Marketing Coordinator Interdisciplinary Note - Brand Marketing Coordinator This SW rounded with patient today. She is aware that [facility] has accepted her and that insurance has approved, although patient is not ready for d/c for another day or 2 at this time. A new precert is needed as her current one expires today. ROSALINE updated. SW made tc to patient's granddaughter, Miriam, and updated her. She will let patient's son and DIL know the plans and call SW back if they have any questions. Normal [facility] Comment on above: Result Comment: Elec tronically Signed By: An MARTINEZW, Jailyn Sharma\.br\Date and Time Signed: 02/27/24 11:58 EST Lab Miscellaneous-LCon 02-26 Lab Miscellaneous COMMENT Invalid Interpretation Code [facility] Comment on above: Result Comment: Test Ordered: [id number] C difficile Toxins A+B, EIA C difficile Toxins A+B, EIA Negative CB Reference Range: Negative Performed at: CB [facility] [address] [id number] PhD Meme Becker Performed By: #### 1 [id number] #### [facility] [address] [place] [address] US Renalon 02-27-2024 US Renal Exam Date/Time: 02/27/2024 10:13 EST Reason for Exam: Renal failure Report IMPRESSION: NEGATIVE ULTRASOUND OF THE KIDNEYS. CLINICAL HISTORY: Renal failure. COMPARISON: None available. COMMENT: The right kidney measures approximately 9.5 cm in length, with renal cortical thickness of approximately 1.1 cm. The left kidney measures approximately 9.3 cm in length, with renal cortical thickness of approximately 1.7 cm. Corticomedullary differentiation is maintained. No solid or cystic renal lesion. No shadowing calculi or hydronephrosis. Ordering Provider: Stefanie bAreu FINAL REPORT Dictated: 02/27/2024 11:31 am Kuldeep Patrick DO Signed (Electronic Signature): 02/27/2024 11:31 am Signed by: Kuldeep Patrick DO Transcribed by: ASTER Technologist: TONY Normal [facility] Vitamin D 25 Hydroxyon 02-26 25-hydroxyvitamin D3 [Mass/Vol] ng/mL Low 30.0-100.0 [facility] Comment on above: Performed By: #### 5 [id number] #### [facility] [address] [place] [address] eGFRon 02-27-2024 eGFR 31 mL/min/1.73 m2 Low >=59 [facility] Comment on above: Performed By: #### 1 [id number] #### [facility] [address] [place] [address] BMPon 02-26-2024 Anion gap [Moles/Vol] 8 mmol/L Normal 6-16 [facility] Comment on above: Performed By: #### 2 [id number] #### [facility] [address] [place] [address] Calcium [Mass/Vol] 7.6 mg/dL Low 8.9-11.1 [facility] Comment on above: Performed By: #### 2 [id number] #### [facility] [address] [place] [address] Chloride [Moles/Vol] 107 mmol/L Normal 101-111 [facility] Comment on above: Performed By: #### 2 [id number] #### [facility] [address] [place] [address] CO2 [Moles/Vol] 26 mmol/L Normal 21-31 [facility] Comment on above: Performed By: #### 2 [id number] #### [facility] [address] [place] [address] Creatinine [Mass/Vol] 1.9 mg/dL High 0.5-1.3 [facility] Comment on above: Performed By: #### 2 [id number] #### [facility] [address] [place] [address] Glucose [Mass/Vol] 151 mg/dL Normal 55-199 [facility] Comment on above: Performed By: #### 2 [id number] #### [facility] [address] [place] [address] Potassium [Moles/Vol] 4.1 mmol/L Normal 3.5-5.3 [facility] Comment on above: Performed By: #### 2 136621 #### [facility] [address] [place] [address] Sodium [Moles/Vol] 137 mmol/L Normal 135-145 [facility] Comment on above: Performed By: #### 2 [id number] #### [facility] [address] [place] [address] Urea nitrogen [Mass/Vol] 71 mg/dL High 5-21 [facility] Comment on above: Performed By: #### 2 [id number] #### [facility] [address] [place] [address] Urea nitrogen/Creatinine [Mass ratio] 37 No Units High 10-20 [facility] Comment on above: Performed By: #### 2 [id number] #### [facility] [address] [place] [address] C Urineon 02-26-2024 Bacteria identified Cx Nom (U) Microbiology PROCEDURE: Urine Culture [R1] SOURCE: U Cath BODY SITE: COLLECTED DATE/TIME: 02/24/2024 18:30 EST RECEIVED DATE/TIME: 02/24/2024 20:09 EST START DATE/TIME: 02/24/2024 20:19 EST FREE TEXT SOURCE: Kwesi RODRIGUEZ, Kwesi RODRIGUEZ, Gabby Thayer FINAL REPORTS Final Report [] Verified Date/Time: 02/26/2024 07:39 EST 50,000 cfu/ml Escherichia coli SUSCEPTIBILITY RESULTS LEGEND: S=Susceptible, N/R=Not Reported, Blank=Data not available, or drug not advisable or tested, I=Intermediate, ESBL=Extended spectrum beta-lactamase, R=Resistant, TFG=Thymidine-depende nt strain, HEATHER=Beta-lactamase positive, DUC=mcg/m;(mg/L), S*=Predicted susceptible interp, R*=Predicted resistant interp EC Antibiotic DUC Dilutn DUC Interp Ampicillin <=8 S Ampicillin/ <=8/4 S Sulbactam Aztreonam <=4 S Cefazolin <=2 S Cefepime <=2 S Ceftazidime <=1 S Ceftazidime/ <=8 S Avibactam Ceftriaxone <=1 S Cefuroxime <=4 S Ciprofloxacin >2 R Ertapenem <=0.5 S Gentamicin <=2 S Levofloxacin >4 R Meropenem <=1 S Nitrofurantoin <=32 S Piperacillin/ <=8 S Tazobactam Tetracycline <=4 S Tobramycin <=2 S Trimethoprim/ <=2/38 S Sulfa Performing Locations R1: This test was performed at: [facility], [address] [place] [address], [phone] , [facility] Comment on above: Performed By: #### 2 [id number] #### [facility] [address] [place] [address] eGFRon 02-26-2024 eGFR 27 mL/min/1.73 m2 Low >=59 [facility] Comment on above: Performed By: #### 1 [id number] #### [facility] [address] [place] [address] C. diff by PCRon 02-25-2024 Clostridium difficile by PCR Positive Abnormal Negative [facility] Comment on above: Order Comment: Order added by Discern Expert. Result Comment: call ed to Melissa Jones/Altagracia by KD 02/25/2024 09:09:23 EST This test result should be correlated with clinical presentations and medical history by a healthcare provider to determine its clinical significance. Performed By: #### 4 [id number] #### [facility] [address] [place] [address] CBC w/ Auto Diffon 4 Basophils/100 WBC (Bld) 0.5 % Normal 0.0-2.0 [facility] Comment on above: Performed By: #### 2 [id number] #### [facility] [address] [place] [address] Basophils/Leukocytes Auto (Bld) [Pure # fraction] 0.0 E9/L Normal 0.0-0.2 [facility] Comment on above: Performed By: #### 2 [id number] #### [facility] [address] [place] [address] Eosinophils (Bld) [#/Vol] 0.3 E9/L Normal 0.0-0.5 [facility] Comment on above: Performed By: #### 2 [id number] #### [facility] [address] [place] [address] Eosinophils/100 WBC (Bld) 6.3 % Normal 0.0-8.0 [facility] Comment on above: Performed By: #### 2 [id number] #### [facility] [address] [place] [address] Erythrocyte distribution width (RBC) [Ratio] 15.3 % High 10.9-14.2 [facility] Comment on above: Performed By: #### 2 [id number] #### [facility] [address] [place] [address] Hematocrit (Bld) [Volume fraction] 32.5 % Low 34.0-46.0 [facility] Comment on above: Performed By: #### 2 [id number] #### [facility] [address] [place] [address] Hemoglobin (Bld) [Mass/Vol] 11.0 g/dL Low 12.0-16.0 [facility] Comment on above: Performed By: #### 2 [id number] #### [facility] [address] [place] [address] Lymphocytes (Bld) [#/Vol] 1.0 E9/L Normal 1.0-4.0 [facility] Comment on above: Performed By: #### 2 [id number] #### [facility] [address] [place] [address] Lymphocytes/100 WBC (Bld) 22.3 % Normal 14.0-50.0 [facility] Comment on above: Performed By: #### 2 [id number] #### [facility] [address] [place] [address] MCH (RBC) [Entitic mass] 30.3 pg Normal 27.0-34.0 [facility] Comment on above: Performed By: #### 2 [id number] #### [facility] [address] [place] [address] MCHC (RBC) [Mass/Vol] 33.7 g/dL Normal 31.4-36.0 [facility] Comment on above: Performed By: #### 2 [id number] #### [facility] [address] [place] [address] MCV (RBC) [Entitic vol] 89.7 fL Normal 80.0-100.0 [facility] Comment on above: Performed By: #### 2 [id number] #### [facility] [address] [place] [address] Monocytes (Bld) [#/Vol] 0.5 E9/L Normal 0.2-1.0 [facility] Comment on above: Performed By: #### 2 [id number] #### [facility] [address] [place] [address] Neutrophils (Bld) [#/Vol] 2.7 E9/L Normal 2.0-7.5 [facility] Comment on above: Performed By: #### 2 [id number] #### [facility] [address] [place] [address] Neutrophils/100 WBC (Bld) 60.7 % Normal 36.0-75.0 [facility] Comment on above: Performed By: #### 2 [id number] #### [facility] [address] [place] [address] Platelet 179.0 E9/L Normal 150.0-500.0 [facility] Comment on above: Performed By: #### 2 [id number] #### [facility] [address] [place] [address] Platelet mean volume (Bld) [Entitic vol] 8.5 fL Normal 6.4-10.8 [facility] Comment on above: Performed By: #### 2 [id number] #### [facility] [address] [place] [address] RBC (Bld) [#/Vol] 3.6 E12/L Low 4.3-5.9 [facility] Comment on above: Performed By: #### 2 [id number] #### [facility] [address] [place] [address] WBC corrected for nucl RBC Auto (Bld) [#/Vol] 4.4 E9/L Normal 4.0-11.0 [facility] Comment on above: Performed By: #### 2 [id number] #### [facility] [address] [place] [address] CDiff PCRon 02-25-2024 C. difficile toxin A+B Ql (Stl) No, PCR to follow Normal [facility] Comment on above: Performed By: #### 3 [id number] #### [facility] [address] [place] [address] CMPon 02-25-2024 Albumin [Mass/Vol] 2.0 g/dL Low 3.3-5.0 [facility] Comment on above: Performed By: #### 2 [id number] #### [facility] [address] [place] [address] Albumin/Globulin (S) [Mass conc ratio] 0.7 Low 1.1-2.2 [facility] Comment on above: Performed By: #### 2 [id number] #### [facility] [address] [place] [address] ALP [Catalytic activity/Vol] 91 Int._Unit/L Normal 21-98 [facility] Comment on above: Performed By: #### 2 [id number] #### [facility] [address] [place] [address] ALT No additional P-5'-P [Catalytic activity/Vol] 12 Int._Unit/L Normal 6-46 [facility] Comment on above: Performed By: #### 2 [id number] #### [facility] [address] [place] [address] Anion gap [Moles/Vol] 9 mmol/L Normal 6-16 [facility] Comment on above: Performed By: #### 2 [id number] #### [facility] [address] [place] [address] AST [Catalytic activity/Vol] 21 Int._Unit/L Normal 5-43 [facility] Comment on above: Performed By: #### 2 [id number] #### [facility] [address] [place] [address] Bilirubin [Mass/Vol] 0.6 mg/dL Normal 0.0-1.1 [facility] Comment on above: Performed By: #### 2 [id number] #### [facility] [address] [place] [address] Calcium [Mass/Vol] 7.9 mg/dL Low 8.9-11.1 [facility] Comment on above: Performed By: #### 2 [id number] #### [facility] [address] [place] [address] Chloride [Moles/Vol] 110 mmol/L Normal 101-111 [facility] Comment on above: Performed By: #### 2 [id number] #### [facility] [address] [place] [address] CO2 [Moles/Vol] 25 mmol/L Normal 21-31 [facility] Comment on above: Performed By: #### 2 [id number] #### [facility] [address] [place] [address] Creatinine [Mass/Vol] 1.8 mg/dL High 0.5-1.3 [facility] Comment on above: Performed By: #### 2 [id number] #### [facility] [address] [place] [address] Globulin (S) [Mass/Vol] 2.7 g/dL Normal 1.4-4.0 [facility] Comment on above: Performed By: #### 2 [id number] #### [facility] [address] [place] [address] Glucose [Mass/Vol] 95 mg/dL Normal 55-199 [facility] Comment on above: Performed By: #### 2 [id number] #### [facility] [address] [place] [address] Potassium [Moles/Vol] 4.0 mmol/L Normal 3.5-5.3 [facility] Comment on above: Performed By: #### 2 [id number] #### [facility] [address] [place] [address] Protein [Mass/Vol] 4.7 g/dL Low 6.0-7.8 [facility] Comment on above: Performed By: #### 2 [id number] #### [facility] [address] [place] [address] Sodium [Moles/Vol] 140 mmol/L Normal 135-145 [facility] Comment on above: Performed By: #### 2 [id number] #### [facility] [address] [place] [address] Urea nitrogen [Mass/Vol] 67 mg/dL High 5-21 [facility] Comment on above: Performed By: #### 2 [id number] #### [facility] [address] [place] [address] Urea nitrogen/Creatinine [Mass ratio] 37 No Units High 10-20 [facility] Comment on above: Performed By: #### 2 [id number] #### [facility] [address] [place] [address] Lab Miscellaneous-LCon 02-24 Test Code 393655 Invalid Interpretation Code [facility] Comment on above: Performed By: #### 1 [id number] #### [facility] [address] [place] [address] Test Name Cdiff Toxin Ag Invalid Interpretation Code [facility] Comment on above: Performed By: #### 1 [id number] #### [facility] [address] [place] [address] UA with Cult Rflxon 02-25-20 24 Type of Urine collection method Catheter Normal [facility] Comment on above: Result Comment: Test results were corrected for specimen description changed to cath specimen. Performed By: #### 4 [id number] #### [facility] [address] [place] [address] eGFRon 02-25-2024 eGFR 29 mL/min/1.73 m2 Low >=59 [facility] Comment on above: Performed By: #### 1 [id number] #### [facility] [address] [place] [address] UA with Cult Rflxon 02-24-20 24 Bacteria Auto Ql (U) 1+ /HPF Abnormal Trace [facility] Comment on above: Performed By: #### 4 [id number] #### [facility] [address] [place] [address] Bilirubin Ql (U) Negative Normal Negative [facility] Comment on above: Performed By: #### 4 [id number] #### [facility] [address] [place] [address] Clarity (U) Turbid Abnormal Clear [facility] Comment on above: Performed By: #### 4 [id number] #### [facility] [address] [place] [address] Color (U) Yellow Normal Yellow [facility] Comment on above: Result Comment: Micr oscopic readings are only performed on those samples that meet specific criteria set forth by [facility]. Performed By: #### 4 [id number] #### [facility] [address] [place] [address] Crystals.amorphous Computer assisted Ql (U) Present Abnormal [facility] Comment on above: Performed By: #### 4 [id number] #### [facility] [address] [place] [address] Epithelial cells.squamous Auto (Urine sed) [#/Area] 0-2 Invalid Interpretation Code [facility] Comment on above: Performed By: #### 4 [id number] #### [facility] [address] [place] [address] Glucose Ql (U) Negative Normal Negative [facility] Comment on above: Performed By: #### 4 [id number] #### [facility] [address] [place] [address] Hemoglobin Auto test strip (U) [Mass/Vol] 2+ mg/dL Abnormal Negative [facility] Comment on above: Performed By: #### 4 [id number] #### [facility] [address] [place] [address] Ketones Auto test strip Ql (U) Negative Normal Negative [facility] Comment on above: Performed By: #### 4 [id number] #### [facility] [address] [place] [address] Leukocyte esterase Auto test strip Ql (U) 25 Maty/uL Normal Negative [facility] Comment on above: Performed By: #### 4 [id number] #### [facility] [address] [place] [address] Mucus Auto Ql (U) Trace Normal Negative [facility] Comment on above: Performed By: #### 4 [id number] #### [facility] [address] [place] [address] Nitrite Auto test strip Ql (U) Negative Normal Negative [facility] Comment on above: Performed By: #### 4 [id number] #### [facility] [address] [place] [address] pH (U) 6.0 [pH] Invalid Interpretation Code 5.0-9.0 [facility] Comment on above: Performed By: #### 4 [id number] #### [facility] [address] [place] [address] Protein Ql (U) 3+ mg/dL Abnormal Negative [facility] Comment on above: Performed By: #### 4 [id number] #### [facility] [address] [place] [address] RBC Ql (U) 4-20 Abnormal 0-3 [facility] Comment on above: Performed By: #### 4 [id number] #### [facility] [address] [place] [address] Specific gravity (U) [Rel density] 1.024 Invalid Interpretation Code 1.005-1.030 [facility] Comment on above: Performed By: #### 4 [id number] #### [facility] [address] [place] [address] Urobilinogen (U) [Mass/Vol] Negative Normal Negative [facility] Comment on above: Performed By: #### 4 [id number] #### [facility] [address] [place] [address] WBC Auto (Urine sed) [#/Area] 26-30 Abnormal 0-5 [facility] Comment on above: Performed By: #### 4 [id number] #### [facility] [address] [place] [address] US breast LT completeon US breast LT complete [facility] [place] [address] [place] [address] Ultrasound Report Signed Patient: Jaclyn An MR#: [id number] : 1945 Acct:[id number] Age/Sex: 78 / F ADM Date: 11/22/23 Loc: [facility] Room: Type: [facility] Attending Dr: Charles Mercado DO Ordering Provider: Amalia Mancera DO, RES Date of Service: 11/22/23 US/US breast LT complete: Breast pain, left;Breast skin changes Copies to: DO Amalia Donaldson DO, RES US breast LT limited 11/22/2023 7:53 AM SIGNS AND SYMPTOMS: Breast pain, left;Breast skin changes COMPARISON: None. FINDINGS: Grayscale and color sonographic images of the left breast were obtained. Within the left upper inner quadrant approximately 4 to 5 cm from the nipple there is a slightly hypoechoic ovoid wider than tall structure measuring 1.0 x 0.6 x 1.0 cm in greatest dimension. No posterior acoustic features are noted. This is of uncertain etiology but may represent a small focus of fat necrosis. Mildly prominent ducts are noted along the left upper and inner quadrant. There is no evidence of cyst, architectural distortion, or atypical calcification. US/US breast LT complete IMPRESSION: Mildly prominent ducts are noted in the left upper inner quadrant of the breast with a hypoechoic 1 cm focus approximately 4 to 5 cm from the nipple. This may represent a small area of fat necrosis. However, follow-up with ultrasound in 6 months is recommended as malignancy is not excluded. ASSESSMENT: BIRADS-3 Probably Benign RECOMMENDATION: Follow-up with ultrasound in 6 months is recommended as malignancy is not excluded. Impression dictated by: Casey Parsons M.D.11/22/2023 8:24 AM Dictation Location: [facility] Tech: Vonda Kauffman Transcribed By: GABRIEL 11/22/23823 Dictated By: Casey Parsons II, MD 11/22/23818 Signed By: 11/22/23 0824 Normal [facility] XR Shoulder Complete Lefton 10-02-2023 XR Shoulder Complete Left Exam Date/Time: 10/01/2023 22:56 EDT Reason for Exam: Pain, Non Traumatic Report IMPRESSION: NO ACUTE OSSEOUS ABNORMALITY. EXAM: XR Shoulder Complete Left HISTORY: Shoulder pain COMPARISON: None available TECHNIQUE: AP internal, external rotation views and a Y view of the shoulder obtained. FINDINGS: No acute fracture or dislocation. Moderate degenerative changes of the acromioclavicular joint and mild degenerative changes of the glenohumeral joint. Soft tissues are within normal limits. Ordering Provider: Muriel Le FINAL REPORT Dictated: 10/02/2023 10:38 am Kuldeep Patrick DO Signed (Electronic Signature): 10/02/2023 10:38 am Signed by: Kuldeep Patrick DO Transcribed by: ASTER Technologist: ASTERR Technical Comments Radiation Dose: Ka,r in mGy = na DAP = na Normal [facility] BMPon 10-01-2023 Anion gap [Moles/Vol] 10 mmol/L Normal 6-16 [facility] Comment on above: Performed By: #### 2 [id number] #### [facility] [address] [place] [address] Calcium [Mass/Vol] 8.2 mg/dL Low 8.9-11.1 [facility] Comment on above: Performed By: #### 2 [id number] #### [facility] [address] [place] [address] Chloride [Moles/Vol] 107 mmol/L Normal 101-111 [facility] Comment on above: Performed By: #### 2 [id number] #### [facility] [address] [place] [address] CO2 [Moles/Vol] 27 mmol/L Normal 21-31 [facility] Comment on above: Performed By: #### 2 [id number] #### [facility] [address] [place] [address] Creatinine [Mass/Vol] 0.8 mg/dL Normal 0.5-1.3 [facility] Comment on above: Performed By: #### 2 [id number] #### [facility] [address] [place] [address] Glucose [Mass/Vol] 115 mg/dL Normal 55-199 [facility] Comment on above: Performed By: #### 2 [id number] #### [facility] [address] [place] [address] Potassium [Moles/Vol] 4.0 mmol/L Normal 3.5-5.3 [facility] Comment on above: Performed By: #### 2 [id number] #### [facility] [address] [place] [address] Sodium [Moles/Vol] 140 mmol/L Normal 135-145 [facility] Comment on above: Performed By: #### 2 [id number] #### [facility] [address] [place] [address] Urea nitrogen [Mass/Vol] 26 mg/dL High 5-21 [facility] Comment on above: Performed By: #### 2 [id number] #### [facility] [address] [place] [address] Urea nitrogen/Creatinine [Mass ratio] 32 No Units High 10-20 [facility] Comment on above: Performed By: #### 2 [id number] #### [facility] [address] [place] [address] CBC w/ Auto Diffon 4 Basophils/100 WBC (Bld) 0.8 % Normal 0.0-2.0 [facility] Comment on above: Performed By: #### 2 [id number] #### [facility] [address] [place] [address] Basophils/Leukocytes Auto (Bld) [Pure # fraction] 0.0 E9/L Normal 0.0-0.2 [facility] Comment on above: Performed By: #### 2 [id number] #### [facility] [address] [place] [address] Eosinophils (Bld) [#/Vol] 0.2 E9/L Normal 0.0-0.5 [facility] Comment on above: Performed By: #### 2 [id number] #### [facility] [address] [place] [address] Eosinophils/100 WBC (Bld) 3.5 % Normal 0.0-8.0 [facility] Comment on above: Performed By: #### 2 [id number] #### [facility] [address] [place] [address] Erythrocyte distribution width (RBC) [Ratio] 14.7 % High 10.9-14.2 [facility] Comment on above: Performed By: #### 2 [id number] #### [facility] [address] [place] [address] Hematocrit (Bld) [Volume fraction] 43.6 % Normal 34.0-46.0 [facility] Comment on above: Performed By: #### 2 [id number] #### [facility] [address] [place] [address] Hemoglobin (Bld) [Mass/Vol] 14.7 g/dL Normal 12.0-16.0 [facility] Comment on above: Performed By: #### 2 [id number] #### [facility] [address] [place] [address] Lymphocytes (Bld) [#/Vol] 1.3 E9/L Normal 1.0-4.0 [facility] Comment on above: Performed By: #### 2 [id number] #### [facility] [address] [place] [address] Lymphocytes/100 WBC (Bld) 23.0 % Normal 14.0-50.0 [facility] Comment on above: Performed By: #### 2 040352 #### [facility] [address] [place] [address] MCH (RBC) [Entitic mass] 30.2 pg Normal 27.0-34.0 [facility] Comment on above: Performed By: #### 2 [id number] #### [facility] [address] [place] [address] MCHC (RBC) [Mass/Vol] 33.7 g/dL Normal 31.4-36.0 [facility] Comment on above: Performed By: #### 2 [id number] #### [facility] [address] [place] [address] MCV (RBC) [Entitic vol] 89.6 fL Normal 80.0-100.0 [facility] Comment on above: Performed By: #### 2 [id number] #### [facility] [address] [place] [address] Monocytes (Bld) [#/Vol] 0.4 E9/L Normal 0.2-1.0 [facility] Comment on above: Performed By: #### 2 164274 #### [facility] [address] [place] [address] Neutrophils (Bld) [#/Vol] 3.5 E9/L Normal 2.0-7.5 [facility] Comment on above: Performed By: #### 2 [id number] #### [facility] [address] [place] [address] Neutrophils/100 WBC (Bld) 64.6 % Normal 36.0-75.0 [facility] Comment on above: Performed By: #### 2 [id number] #### [facility] [address] [place] [address] Platelet mean volume (Bld) [Entitic vol] 8.7 fL Normal 6.4-10.8 [facility] Comment on above: Performed By: #### 2 848103 #### [facility] [address] [place] [address] Platelets (Bld) [#/Vol] 214.0 E9/L Normal 150.0-500.0 [facility] Comment on above: Performed By: #### 2 [id number] #### [facility] [address] [place] [address] RBC (Bld) [#/Vol] 4.9 E12/L Normal 4.3-5.9 [facility] Comment on above: Performed By: #### 2 [id number] #### [facility] [address] [place] [address] WBC corrected for nucl RBC Auto (Bld) [#/Vol] 5.4 E9/L Normal 4.0-11.0 [facility] Comment on above: Performed By: #### 2 [id number] #### [facility] [address] [place] [address] CHEMISTRYOrdered By: SYSTEM SYSTEM on 10-01-2023 Albumin [Mass/Vol] 2.2 g/dL Low 3.3 - 5.0 gm/dL [facility] Albumin/Globulin [Mass ratio] 0.6 {ratio} Low 1.1 - 2.2 [facility] ALP [Catalytic activity/Vol] 137 [iU]/d High 21 - 98 Int._Unit/L [facility] ALT No additional P-5'-P [Catalytic activity/Vol] 20 [iU]/d Normal 6 - 46 Int._Unit/L [facility] Anion gap [Moles/Vol] 10 mmol/L Normal 6 - 16 mEq/L [facility] AST [Catalytic activity/Vol] 27 [iU]/d Normal 5 - 43 Int._Unit/L [facility] Bilirubin [Mass/Vol] 0.4 mg/dL Normal 0.0 - 1 .1 mg/dL [facility] Bilirubin.direct [Mass/Vol] 0.1 mg/dL Normal 0.0 - 0.4 mg/dL [facility] Bilirubin.indirect [Mass or moles/Vol] 0.3 mg/dL Normal 0.1 - 0.9 mg/dL [facility] Calcium [Mass/Vol] 8.2 mg/dL Low 8.9 - 11. 1 mg/dL [facility] Chloride [Moles/Vol] 107 mmol/L Normal 101 - 1 11 mmol/L [facility] CO2 [Moles/Vol] 27 mmol/L Normal 21 - 31 mmol/L [facility] Creatinine [Mass/Vol] 0.8 mg/dL Normal 0.5 - 1.3 mg/dL [facility] eGFR 76 mL/min/1.73 m2 Normal >=59mL/min / 1.73 m2 [facility] Globulin (S) [Mass/Vol] 3.6 g/dL Normal 1.4 - 4.0 gm/dL [facility] Glucose [Mass/Vol] 115 mg/dL Normal 55 - 199 mg/dL [facility] Potassium [Moles/Vol] 4.0 mmol/L Normal 3.5 - 5.3 mmol/L [facility] Protein [Mass/Vol] 5.8 g/dL Low 6.0 - 7.8 gm/dL [facility] Sodium [Moles/Vol] 140 mmol/L Normal 135 - 145 mmol/L [facility] Urea nitrogen [Mass/Vol] 26 mg/dL High 5 - 21 mg/dL [facility] Urea nitrogen/Creatinine [Mass ratio] 32 mg/mg High 10 - 20 [facility] ED Clinical Summaryon 2023 ED Clinical Summary ED Clinical Summary [place] [address] ED Clinical Summary Person Information Name: JACLYN AN [facility] Age: 78 Years : 1945 Sex: Female Language: Greenlandic PCP: [facility] Marital Status: Phone: [phone] Visit Id: Visit Reason: Shoulder pain-swelling; Abdominal pain; ABD PAIN - STATES HER FROM 40 YRS AGO IS COMIGN APART Speciality: Acuity: 3 Enc Type: Emergency Med Service: Emergency Arrival: 10/01/2023 20:54:07 Discharge: 10/01/2023 23:32:32 LOS: 000 02:38 Checkin: 10/01/2023 20:54:07 Checkout: 10/01/2023 23:32:32 Dispo Type: Home (Routine DC) EVENTS: Event Name Event Status Request Date/Time Start Date/Time Complete Date/Time Arrive Complete 10/01/2023 20:54:07 10/01/2023 20:54:07 10/01/2023 20:54:07 Document Home Meds Request 10/01/2023 20:54:07 Triage Complete 10/01/2023 20:54:07 10/01/2023 21:34:43 10/01/2023 21:34:43 Bed Assign Complete 10/01/2023 21:35:31 10/01/2023 21:35:31 10/01/2023 21:35:31 Dr Exam Complete 10/01/2023 21:35:31 10/01/2023 21:37:15 10/01/2023 21:37:15 RN Exam Complete 10/01/2023 21:35:31 10/01/2023 22:07:53 10/01/2023 22:07:53 Registration Complete 10/01/2023 21:37:15 10/01/2023 21:40:11 10/01/2023 21:40:11 Reg Complete Request 10/01/2023 21:40:11 Reg Bed Request Complete 10/01/2023 21:40:11 10/01/2023 21:40:11 10/01/2023 21:40:11 Meds Admin Cancel 10/01/2023 22:08:00 10/01/2023 22:18:05 Pending Labs Request 10/01/2023 22:08:00 Lab Complete 10/01/2023 22:08:00 10/01/2023 23:00:43 X-Ray Complete 10/01/2023 22:08:00 10/01/2023 22:54:31 10/01/2023 22:56:49 Meds Admin Complete 10/01/2023 22:18:31 10/01/2023 22:25:15 Pending Labs Complete 10/01/2023 22:37:24 10/01/2023 22:37:24 10/01/2023 23:00:43 Lab Complete 10/01/2023 22:37:24 10/01/2023 22:37:24 10/01/2023 23:00:43 Wet Read Request 10/01/2023 22:56:49 Meds Admin Complete 10/01/2023 23:14:59 10/01/2023 23:30:44 Discharge Complete 10/01/2023 23:16:55 10/01/2023 23:32:38 10/01/2023 23:32:38 Transfer Complete 10/01/2023 23:32:39 10/01/2023 23:32:39 10/01/2023 23:32:39 ADDRESS: [address] [place] [address] [address] [facility] [phone] PHYS DOC NOTES: MEDICAL INFORMATION: Prescriptions Given: New Medications [facility], [address] [facility] [place], [place] [id number], [phone] doxycycline (doxycycline hyclate 100 mg Tab) 1 Tablets By Mouth every 12 hours for 10 Days. Refills: 0. naproxen (Naprosyn 500 mg Tab) 1 Tablets By Mouth 2 times a day as needed for pain. Refills: 0. Medications to Continue with No Changes Other Medications albuterol (albuterol 0.083% Inh Madai 3 mL) 3 Milliliter Inhalation 4 times a day. ICD 10 code- J45.901 Cancel previous order of albuterol. Refills: 0. aspirin (aspirin 81 mg oral tablet) 1 Tablets By Mouth every day. atorvastatin (atorvastatin 40 mg Tab) 1 Tablets By Mouth every day. calcium-vitamin D (Calcium 600+D) By Mouth every day. hydrochlorothiazide-l isinopril (hydrochlorothiazide- lisinopril 25 mg-20 mg Tab) 1 Tablets By Mouth every day. loratadine (loratadine 10 mg Tab) 1 Tablets By Mouth every day. meloxicam (meloxicam 15 mg oral tablet) 1 Tablets. [facility] Prescription (Check BMP in 3-5 days) 0. Fax results to primary care physician. Diagnoses : Acute kidney injury. Refills: 0. tramadol (traMADOL 50 mg Tab) 1 Tablets By Mouth every 12 hours as needed for pain. PATIENT EDUCATION INFORMATION: Instructions: Shoulder Range of Motion Exercises; Cellulitis, Adult, Yzvr-am-Avvn; Arthritis, Eods-dd-Wykn Follow up: With: Address: When: Mark Hernandez [address] [place] [id number] Business (1) In 3 days 10/04/2023 With: Address: When: [address] [phone] Business (1) In 3 days 10/04/2023 Comments: Take the antibiotics as prescribed to you have completed the course. You can use the pain medication as prescribed as needed for pain. Please follow-up with orthopedics and your primary care doctor for further evaluation management. Please return to ED for any new or worsening symptoms. DIAGNOSIS: Abdominal wall cellulitis; Arthritis of shoulder [facility] ED Note-Physicianon 10-01-19 ED Note-Physician ED Note-Physician Basic Information Time Seen: Muriel Le DO 10/01/2023 21:37 Chief Complaint Lower ABD pain with gas since yesterday. States thinks c section scar is coming apart. C section scar observed in triage, no s/s of opening. (L) shoulder pain for past couple of weeks. History of Present Illness Patient is a 78-year-old female with past medical Struve hypertension, hyperlipidemia, morbid obesity presenting to the ED for evaluation of lower abdominal pain and gassiness. Patient states she started having lower abdominal pain yesterday she states she felt a pop and believes her incision is coming apart. Patient's was done 40+ years ago. Patient also complaining of left shoulder pain worse with movement for the last several weeks. Denies any fevers, chills, nausea, vomiting, dizziness or lightheadedness. Review of Systems A 10 point review of systems is negative except as noted above. Medical and Surgical History: Reviewed and noted Social history: Lives at home Tobacco: Denies Physical Exam Vitals & Measurements T: 36.5 ?C(Oral) HR: 82(Peripheral) RR: 16 BP: 143/83 SpO2: 95% HT: 152 cm WT: 155 kg BMI: 67.09 General: Well developed, non toxic appearing, no acute distress HEENT: Head atraumatic, Mucosa moist, hearing grossly normal Neck: No JVD, tracheal deviation Cardiac: Regular rate, rhythm, no murmurs, or gallops, 2+ radial pulses Respiratory: Lungs clear to auscultation B/L, normal respiratory effort Abdomen: Soft non tender, no rebound or guarding, no peritoneal signs, states his section incision clean dry and intact, no signs of dehiscence, there is surrounding cellulitis of the lower abdominal wall Extremities: Pain on palpation on movement of the shoulder, pain with external and internal rotation no obvious deformity Neurologic: Alert and oriented, speech clear Skin: No rashes or lesions Psych: Appropriate mood and behavior Medical Decision Making MEDICAL DECISION MAKING Number and Complexity of Problems Differential Diagnosis: [] [facility] Data External documents reviewed: [] My EKG interpretation: [] My CT interpretation: [] My X-ray interpretation: [] My Ultrasound interpretation: [] Decision rules/scores evaluated: [] Discussed with: [] Treatment and Disposition ED Course: Patient is a 78-year-old female presenting to the ED for evaluation of lower abdominal pain, shoulder pain. Patient is nontoxic and on arrival, no acute distress. Does have abdominal wall cellulitis on examination no signs of dehiscence of her incision. Laboratory evaluation is obtained, x-ray of the shoulder is ordered. Patient's laboratory evaluation is unremarkable, no leukocytosis, x-ray of the shoulder shows degenerative changes but no acute fracture. Discussed findings with patient she started on doxycycline is given short course of pain medication for home. She is can referral to orthopedics for further evaluation management. She is return to the ED for any new or worsening symptoms. 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, unspecified shoulder) Orders: acetaminophen-hydroco done, 1 tab(s), Tab, Oral, Once, Stop date 10/01/23 22:18:00 EDT, STAT, Start date 10/01/23 22:18:00 EDT acetaminophen-hydroco done, 1 EA, Tab, Oral, Once, Stop date 10/01/23 23:14:00 EDT, STAT, Start date 10/01/23 23:14:00 EDT doxycycline, 100 mg = 1 cap(s), Cap, Oral, Once, Stop date 10/01/23 23:14:00 EDT, STAT, Start date 10/01/23 23:14:00 EDT, 10/01/23 23:14:00 EDT doxycycline, 100 mg = 1 tab(s), Oral, q12hr, X 10 day(s), # 20 tab(s), Refills(s) 0, Pharmacy: [facility], 152, cm, 10/01/23 21:34:00 EDT, Height/Length Dosing, 155, kg, 10/01/23 21:34:00 EDT, Weight Dosing naproxen, 500 mg = 1 tab(s), Oral, BID, PRN for pain, # 20 tab(s), Refills(s) 0, Pharmacy: [facility], 152, cm, 10/01/23 21:34:00 EDT, Height/Length Dosing, 155, kg, 10/01/23 21:34:00 EDT, Weight Dosing Basic Metabolic Panel CBC w/ Auto Diff eGFR Hepatic Function Panel UA with Cult Rflx XR Shoulder Complete Left Medications Administered Given doxycycline hyclate 100 mg Cap, 100 mg, Oral [place] 325 mg-5 mg oral tablet, 1 tab(s), Oral TO GO acetaminophen-hydroco done 325 mg - 5 mg, 1 EA, Oral Disposition Plan Discharge Prescription List Prescriptions doxycycline hyclate 100 mg Tab, 100 mg= 1 tab(s), Oral, q12hr Naprosyn 500 mg Tab, 500 mg= 1 tab(s), Oral, BID, PRN Follow-up With When Contact Information Mark Hernandez In 3 days 10/04/2023 EDT [address] [place] [address]- Business (1) Additional Instructions: [facility] In 3 days 10/04/2023 EDT [address] [place] [address]- [phone] Business (1) Additional Instructions: Take the antibiotics as prescribed to you have (more content not included)... [facility] Comment on above: Result Comment: Elec tronically Signed By: Muriel Le DO\.br\Date and Time Signed: 10/01/23 23:32 EDT ED Patient Summaryon 024 ED Patient Summary ED Patient Summary [facility] [address] [place], [place] [address] Patient Discharge Instructions Person Information Name: JACLYN AN Age: 78 Years Arrival Date: 10/01/2023 20:54:07 Discharge Diagnosis: Abdominal wall cellulitis; Arthritis of shoulder Primary Care Physician: [facility] Provider Information Primary Provider: Muriel Le DO [employer] Professional:None The exam and treatment you received in the Emergency Department were for an urgent problem and are not intended as complete care. It is important that you follow up with a doctor, nurse practitioner, or physician?s export sales assistant for ongoing care. If your symptoms become worse or you do not improve as expected and you are unable to reach your usual health care provider, you should return to the Emergency Department. We are available 24 hours a day. JACLYN AN has been given the following list of patient education materials, prescriptions and follow-up instructions: Follow-up Instructions: With: Address: When: Mark Hernandez [address] [place], [place] [id number] [employer] (1) In 3 days 10/04/2023 With: Address: When: [place] [phone] [employer] (1) In 3 days 10/04/2023 Comments: Take the antibiotics as prescribed to you have completed the course. You can use the pain medication as prescribed as needed for pain. Please follow-up with orthopedics and your primary care doctor for further evaluation management. Please return to ED for any new or worsening symptoms. In the event that this physician does not participate in your insurance network, please consult with your insurance company to find a nearby participating provider. Patient Education Materials: Shoulder Range of Motion Exercises; Cellulitis, Adult, Ierq-zy-Xaer; Arthritis, Tezl-vr-Iqcj A MESSAGE TO ALL PATIENTS REGARDING OPIOIDS PRESCRIPTION OPIOIDS: WHAT YOU NEED TO KNOW Prescription opioids can be used to help relieve bjoavkal-re-ynwpir pain and are often prescribed following a surgery or injury, or for certain health conditions. These medications can be an important part of the treatment but also come with serious risks. It is important to work with your healthcare provider to make sure you are getting the safest, most effective care. WHAT ARE THE RISKS AND SIDE EFFECTS OF OPIOID USE? Prescription opioids carry serious risks of addiction and overdose, especially with prolonged use. An opioid overdose, often marked by slowed breathing, can cause sudden . The use of prescription opioids can have a number of side effects as well, even when taken as directed: ? Tolerance?meaning you might need to take more of the medication for the same pain relief ? Physical dependence?meaning you have symptoms of withdrawal when a medication is stopped ? Increased sensitivity to pain ? Constipation ? Nausea, vomiting, and dry mouth ? Sleepiness and dizziness ? Confusion ? Depression ? Low levels of testosterone that can result in lower sex drive, energy, and strength ? Itching and sweating RISKS ARE GREATER WITH: ? History of drug misuse, substance use disorder, or overdose ? Mental health conditions (such as depression or anxiety) ? Sleep apnea ? Older age (65 years and older) ? Avoid alcohol while taking prescription opioids. Also, unless specifically advised by your health care provider, medications to avoid include: ? Benzodiazepines (such as Xanax or Valium) ? Muscle relaxants (such as Soma or Flexeril) ? Hypnotics (such as Ambien or Lunesta) ? Other prescription opioids KNOW YOUR OPTIONS Talk to your health care provider about ways to manage your pain that don?t involve prescription opioids. Some of these options may actually work better and have fewer risks and side effects. Options may include: ? Pain relievers such as acetaminophen, ibuprofen, and naproxen ? Some medication that are also used for depression or seizures ? Physical therapy and exercise ? Cognitive behavioral therapy, a psychological, goal-directed approach, in which patients learn how to modify physical, behavioral, and emotional triggers of pain and stress. IF YOU ARE PRESCRIBED OPIOIDS FOR PAIN: ? Never take opioids in greater amounts or more often than prescribed. ? Follow up with your primary health care provider. o Work together to create a plan on how to manage your pain. o Talk about ways to help manage your pain that don?t involve prescription opioids. o Talk about any and all concerns and side effects. ? Help prevent misuse and abuse o Never sell or share prescription opioids. o Never use another person?s prescription opioids. ? Store prescription opioids in a secure place and out of reach of others (this may include visitors, children, friends, and (more content not included)... [facility] HEMATOLOGYOrdered By: SYSTEM SYSTEM on 10-01-2023 Basophils/100 WBC (Bld) 0.8 % Normal 0.0 - 2.0 % Remisol Heme Basophils/Leukocytes Auto (Bld) [Pure # fraction] 0.0 E9/L Normal 0.0 - 0.2 E9/L Remisol Heme Eosinophils (Bld) [#/Vol] 0.2 E9/L Normal 0.0 - 0.5 E9/L Remisol Heme Eosinophils/100 WBC (Bld) 3.5 % Normal 0.0 - 8.0 % Remisol Heme Erythrocyte distribution width (RBC) [Ratio] 14.7 % High 10.9 - 14.2 % Remisol Heme Hematocrit (Bld) [Volume fraction] 43.6 % Normal 34.0 - 46.0 % Remisol Heme Hemoglobin (Bld) [Mass/Vol] 14.7 g/dL Normal 12.0 - 16.0 gm/dL Remisol Heme Lymphocytes (Bld) [#/Vol] 1.3 E9/L Normal 1.0 - 4.0 E9/L Rem[facility] Heme Lymphocytes/100 WBC (Bld) 23.0 % Normal 14.0 - 50.0 % Remisol Heme MCH (RBC) [Entitic mass] 30.2 pg Normal 27.0 - 34.0 pg Remisol Heme MCHC (RBC) [Mass/Vol] 33.7 g/dL Normal 31.4 - 36.0 gm/dL Remisol Heme MCV (RBC) [Entitic vol] 89.6 fL Normal 80.0 - 100.0 fL Remisol Heme Monocytes (Bld) [#/Vol] 0.4 E9/L Normal 0.2 - 1.0 E9/L Remisol Heme Monocytes/100 WBC (Bld) 8.1 % Normal 4.0 - 14.0 % Remisol Heme Neutrophils (Bld) [#/Vol] 3.5 E9/L Normal 2.0 - 7.5 E9/L Remisol Heme Neutrophils/100 WBC (Bld) 64.6 % Normal 36.0 - 75.0 % Remisol Heme Platelet mean volume (Bld) [Entitic vol] 8.7 fL Normal 6.4 - 10.8 fL Remisol Heme Platelets (Bld) [#/Vol] 214.0 E9/L Normal 150. 0 - 500.0 E9/L Remisol Heme RBC (Bld) [#/Vol] 4.9 E12/L Normal 4.3 - 5.9 E12/L [facility]e WBC corrected for nucl RBC Auto (Bld) [#/Vol] 5.4 E9/L Normal 4.0 - 11.0 E9/L Rem[facility] Heme Hep Func Panelon 10-01-2023 Albumin [Mass/Vol] 2.2 g/dL Low 3.3-5.0 [facility] Comment on above: Performed By: #### 2 [id number] #### [facility] [address] [place] [address] Albumin/Globulin (S) [Mass conc ratio] 0.6 Low 1.1-2.2 [facility] Comment on above: Performed By: #### 2 [id number] #### [facility] [address] [place] [address] ALP [Catalytic activity/Vol] 137 Int._Unit/L High 21-98 [facility] Comment on above: Performed By: #### 2 [id number] #### [facility] [address] [place] [address] ALT No additional P-5'-P [Catalytic activity/Vol] 20 Int._Unit/L Normal 6-46 [facility] Comment on above: Performed By: #### 2 [id number] #### [facility] [address] [place] [address] AST [Catalytic activity/Vol] 27 Int._Unit/L Normal 5-43 [facility] Comment on above: Performed By: #### 2 [id number] #### [facility] [address] [place] [address] Bilirubin [Mass/Vol] 0.4 mg/dL Normal 0.0-1.1 [facility] Comment on above: Performed By: #### 2 [id number] #### [facility] [address] [place] [address] Bilirubin.direct [Mass/Vol] 0.1 mg/dL Normal 0.0-0.4 [facility] Comment on above: Performed By: #### 2 [id number] #### [facility] [address] [place] [address] Bilirubin.indirect [Mass or moles/Vol] 0.3 mg/dL Normal 0.1-0.9 [facility] Comment on above: Performed By: #### 2 [id number] #### [facility] [address] [place] [address] Globulin (S) [Mass/Vol] 3.6 g/dL Normal 1.4-4.0 [facility] Comment on above: Performed By: #### 2 [id number] #### [facility] [address] [place] [address] Protein [Mass/Vol] 5.8 g/dL Low 6.0-7.8 [facility] Comment on above: Performed By: #### 2 [id number] #### [facility] [address] [place] [address] eGFRon 10-01-2023 eGFR 76 mL/min/1.73 m2 Normal >=59 [facility] Comment on above: Order Comment: Order added by Discern Expert. Performed By: #### 1 [id number] #### [facility] [address] [place] [address] A1C with Estimated Average G luon 01-19-2023 Glucose [Mass/Vol] 105 mg/dL Normal [facility] Comment on above: Order Comment: Reaso n for Exam Morbid obesity Result Comment: PERF ORMED BY: [place] [address] PATHOLOGIST VEGETABLE SCULLION GRACE ESPARZA M.D. Performed By: #### T SH3 wRFLX, CBC, CMP, A1C WT eA, LIPID #### [facility] [address] [place] [id number] [facility] HbA1c (Bld) [Mass fraction] 5.3 % Normal 4.3-5.6 [facility] Comment on above: Order Comment: Reaso n for Exam Morbid obesity Result Comment: Incr eased risk for diabetes: 5.7 - 6.4 diabetes: >6.4 glycemic control for adults with diabetes: <7.0 Performed By: #### T SH3 wRFLX, CBC, CMP, A1C WTH eA, LIPID #### [facility] [address] [place] [address] [place] Alanine aminotransferase [En zymatic activity/volume] in Serum or PlasmaOrdered By: Saman Castrejon on 01-19-2023 ALT [Catalytic activity/Vol] 19 U/L Normal 7-52 [facility] Comment on above: Order Comment: Reaso n for Exam Morbid obesity;Hypercholesteremia Reason for Exam Morbid obesity Performed By: #### T SH3 wRFLX, CBC, CMP, A1C WTH eA, LIPID #### [facility] [address] [place] [address] [place] Albumin [Mass/volume] in Ser um or Plasma by Bromocresol green (BCG) dye binding methoOrdered By: Saman Castrejon on 01-19-2023 Albumin BCG dye [Mass/Vol] 3.9 g/dL 3.5-5.7 [facility] Alkaline phosphatase [Enzyma tic activity/volume] in Serum or PlasmaOrdered By: Saman Castrejon on 01-19-2023 ALP [Catalytic activity/Vol] 92 U/L Normal 34-104 [facility] Comment on above: Order Comment: Reaso n for Exam Morbid obesity;Hypercholesteremia Reason for Exam Morbid obesity Performed By: #### T SH3 wRFLX, CBC, CMP, A1C WTH eA, LIPID #### [facility] [address] [place] [id number] [place] Aspartate aminotransferase [ Enzymatic activity/volume] in Serum or PlasmaOrdered By: Saman Castrejon on 01-19-2023 AST [Catalytic activity/Vol] 23 U/L Normal 13-39 [facility] Comment on above: Order Comment: Reaso n for Exam Morbid obesity;Hypercholesteremia Reason for Exam Morbid obesity Performed By: #### T SH3 wRFLX, CBC, CMP, A1C WTH eA, LIPID #### [facility] [address] [place] [address] [place] Automated basophil %Ordered By: Saman Castrejon on 01-19-2023 Basophils/100 WBC (Bld) 0.5 % Normal . [facility] Comment on above: Order Comment: Reaso n for Exam Morbid obesity Performed By: #### T SH3 wRFLX, CBC, CMP, A1C WTH eA, LIPID #### [facility] [address] [place] [id number] [place] Automated basophil countOrde red By: Saman Castrejon on 01-19-2023 Basophils (Bld) [#/Vol] 0.0 10*3/uL Normal 0.0-0.2 [facility] Comment on above: Order Comment: Reaso n for Exam Morbid obesity Result Comment: PERF ORMED BY: [place] [address] PATHOLOGIST VEGETABLE SCULLION GRACE ESPARZA M.D. Performed By: #### T SH3 wRFLX, CBC, CMP, A1C WTH eA, LIPID #### [facility] [address] Automated blood monocyte cou ntOrdered By: Saman Castrejon on 01-19-2023 Monocytes (Bld) [#/Vol] 0.3 10*3/uL Normal 0.0-0.8 [facility] Comment on above: Order Comment: Reaso n for Exam Morbid obesity Performed By: #### T SH3 wRFLX, CBC, CMP, A1C WTH eA, LIPID #### [facility] [address] [place] [address] Automated eosinophil %Ordere d By: Saman Castrejon on 01-19-2023 Eosinophils/100 WBC (Bld) 3.8 % Normal . [facility] Comment on above: Order Comment: Reaso n for Exam Morbid obesity Performed By: #### T SH3 wRFLX, CBC, CMP, A1C WTH eA, LIPID #### [facility] [address] [place] [address] [place] Automated eosinophil countOr dered By: Saman Castrejon on 01-19-2023 Eosinophils (Bld) [#/Vol] 0.2 10*3/uL Normal 0.0-0.45 [facility] Comment on above: Order Comment: Reaso n for Exam Morbid obesity Performed By: #### T SH3 wRFLX, CBC, CMP, A1C WTH eA, LIPID #### [facility] [address] [place] [address] [place] Automated monocyte %Ordered By: Saman Castrejon on 01-19-2023 Monocytes/100 WBC (Bld) 6.4 % Normal . [facility] Comment on above: Order Comment: Reaso n for Exam Morbid obesity Performed By: #### T SH3 wRFLX, CBC, CMP, A1C WTH eA, LIPID #### [facility] [address] [place] [id number] [facility] Automated neutrophil %Ordere d By: Saman Castrejon on 01-19-2023 Neutrophils/100 WBC (Bld) 60.5 % Normal . [facility] Comment on above: Order Comment: Reaso n for Exam Morbid obesity Performed By: #### T SH3 wRFLX, CBC, CMP, A1C WTH eA, LIPID #### [facility] [address] Bilirubin.total [Mass/volume ] in Serum or PlasmaOrdered By: Saman Castrejon on 01-19-2023 Bilirubin [Mass/Vol] 1.1 mg/dL High 0.3-1.0 [facility] Comment on above: Order Comment: Reaso n for Exam Morbid obesity;Hypercholesteremia Reason for Exam Morbid obesity Performed By: #### T SH3 wRFLX, CBC, CMP, A1C WTH eA, LIPID #### [facility] [address] [place] [id number] [facility] Calcium [Mass/volume] in Ser um or PlasmaOrdered By: Saman Castrejon on 01-19-2023 Calcium [Mass/Vol] 9.9 mg/dL Normal 8.6-10.3 [facility] Comment on above: Order Comment: Reaso n for Exam Morbid obesity;Hypercholesteremia Reason for Exam Morbid obesity Performed By: #### T SH3 wRFLX, CBC, CMP, A1C WTH eA, LIPID #### [facility] [address] [place] [id number] [place] Carbon dioxide, total [Moles /volume] in Serum or PlasmaOrdered By: Saman Castrejon on 01-19-2023 CO2 [Moles/Vol] 30.1 mmol/L Normal 21.0-31.0 [facility] Comment on above: Order Comment: Reaso n for Exam Morbid obesity;Hypercholesteremia Reason for Exam Morbid obesity Performed By: #### T SH3 wRFLX, CBC, CMP, A1C WTH eA, LIPID #### [facility] [address] [place] [id number] [place] Chloride [Moles/volume] in S chris or PlasmaOrdered By: Saman Castrejon on 01-19-2023 Chloride [Moles/Vol] 104 mmol/L Normal 98-107 [facility] Comment on above: Order Comment: Reaso n for Exam Morbid obesity;Hypercholesteremia Reason for Exam Morbid obesity Performed By: #### T SH3 wRFLX, CBC, CMP, A1C [facility] eA, LIPID #### [facility] [address] [place] [id number] [place] Cholesterol [Mass/volume] in Serum or PlasmaOrdered By: Saman Castrejon on 01-19-2023 Cholesterol [Mass/Vol] 138 mg/dL Low 140-200 [facility] Comment on above: Chol less than 200 m g/dl low riskChol 201-239 mg/dl borderline riskChol 240 mg/dl and greater high risk Order Comment: Reaso n for Exam Morbid obesity;Hypercholesteremia Reason for Exam Morbid obesity Result Comment: Chol less than 200 mg/dl low risk Chol 201-239 mg/dl borderline risk Chol 240 mg/dl and greater high risk Performed By: #### T SH3 wRFLX, CBC, CMP, A1C [facility] eA, LIPID #### [facility] [address] [place] [phone] [place] Cholesterol in LDL Calc [Mas s/Vol]Ordered By: Saman Castrejon on 01-19-2023 Cholesterol in LDL [Mass/Vol] 72 mg/dL 0-100 [facility] Comment on above: LDL ATP III CLASSIFI CATIONLDL less than 100 mg/dL OptimalLDL 100-129 mg/dL Near or above optimalLDL 130-159 mg/dL Borderline highLDL 160-189 mg/dL HighLDL greater than 189 mg/dL Very high Cholesterol in VLDL Calc [Ma ss/Vol]Ordered By: Saman Castrejon on 01-19-2023 Cholesterol in VLDL [Mass/Vol] 21 mg/dL [facility] Complete Blood Count Auto Di ffon 01-19-2023 Mean Corpuscular HGB Conc 33.1 g/dL Normal 32.0-35.0 [facility] Comment on above: Order Comment: Reaso n for Exam Morbid obesity Performed By: #### T SH3 wRFLX, CBC, CMP, A1C WTH eA, LIPID #### [facility] [address] NRBC% 0.4 /100{WBC} Normal 0-0.5 [facility] Comment on above: Order Comment: Reaso n for Exam Morbid obesity Performed By: #### T SH3 wRFLX, CBC, CMP, A1C WTH eA, LIPID #### [facility] [address] Comprehensive Metabolic Pane padmini 01-19-2023 Albumin [Mass/Vol] 3.9 g/dL Normal 3.5-5.7 [facility] Comment on above: Order Comment: Reaso n for Exam Morbid obesity;Hypercholesteremia Reason for Exam Morbid obesity Performed By: #### T SH3 wRFLX, CBC, CMP, A1C WTH eA, LIPID #### [address] GFR/1.73 sq M.predicted MDRD (S/P/Bld) [Vol rate/Area] mL/min/{1.73_m2} Normal [facility] Comment on above: Order Comment: Reaso n for Exam Morbid obesity;Hypercholesteremia Reason for Exam Morbid obesity Performed By: #### T SH3 wRFLX, CBC, CMP, A1C WTH eA, LIPID #### [address] Creatinine [Mass/volume] in Serum or PlasmaOrdered By: Saman Castrejon on 01-19-2023 Creatinine [Mass/Vol] 0.89 mg/dL Normal 0.60-1.20 [facility] Comment on above: Order Comment: Reaso n for Exam Morbid obesity;Hypercholesteremia Reason for Exam Morbid obesity Performed By: #### T SH3 wRFLX, CBC, CMP, A1C WTH eA, LIPID #### [address] [address] Erythrocyte distribution wid th [Ratio] by Automated countOrdered By: Saman Castrejon on 01-19-2023 Erythrocyte distribution width (RBC) [Ratio] 14.8 % Normal 11.9-15.3 [facility] Comment on above: Order Comment: Reaso n for Exam Morbid obesity Performed By: #### T SH3 wRFLX, CBC, CMP, A1C WTH eA, LIPID #### [facility] [address] [place] [address] [place] Erythrocytes [#/volume] in B lood by Automated countOrdered By: Saman Castrejon on 01-19-2023 RBC (Bld) [#/Vol] 4.85 10*6/uL Normal 3.60-5.00 [facility] Comment on above: Order Comment: Reaso n for Exam Morbid obesity Performed By: #### T SH3 wRFLX, CBC, CMP, A1C WTH eA, LIPID #### [facility] [address] [place] [address] [place] Glucose [Mass/volume] in Ser um or PlasmaOrdered By: Saman Castrejon on 01-19-2023 Glucose [Mass/Vol] 95 mg/dL Normal 70-100 [facility] Comment on above: ADA recommended refe rence rangeRandom Glucose Reference Range is dependent on time and content of last meal. Glucose of more than 200 mg/dL in a nonstressed, ambulatory subject supports the diagnosis of Diabetes Mellitus. Order Comment: Reaso n for Exam Morbid obesity;Hypercholesteremia Reason for Exam Morbid obesity Result Comment: [facility] Glucose Reference Range is dependent on time and content of last meal. Glucose of more than 200 mg/dL in a nonstressed, ambulatory subject supports the diagnosis of Diabetes Mellitus. ADA recommended reference range Performed By: #### T SH3 wRFLX, CBC, CMP, A1C WTH eA, LIPID #### [facility] [address] [place] [address] [place] Hematocrit [Volume Fraction] of Blood by Automated countOrdered By: Saman Castrejon on 01-19-2023 Hematocrit (Bld) [Volume fraction] 43.6 % Normal 34.0-46.4 [facility] Comment on above: Order Comment: Reaso n for Exam Morbid obesity Performed By: #### T SH3 wRFLX, CBC, CMP, A1C WTH eA, LIPID #### [facility] [address] Hemoglobin [Mass/volume] in BloodOrdered By: Saman Castrejon on 01-19-2023 Hemoglobin (Bld) [Mass/Vol] 14.4 g/dL Normal 11.8-15.4 [facility] Comment on above: Order Comment: Reaso n for Exam Morbid obesity Performed By: #### T SH3 wRFLX, CBC, CMP, A1C WTH eA, LIPID #### [facility] [address] Leukocytes [#/volume] correc ant for nucleated erythrocytes in Blood by Automated counOrdered By: Saman Castrejon on 01-19-2023 WBC corrected for nucl RBC Auto (Bld) [#/Vol] 4.3 10*3/uL 3.8-11.6 [facility] Leukocytes [#/volume] in Blo od by Automated countOrdered By: Saman Castrejon on 01-19-2023 WBC (Bld) [#/Vol] 4.3 10*3/uL Normal 3.8-11.6 [facility] Comment on above: Order Comment: Reaso n for Exam Morbid obesity Performed By: #### T SH3 wRFLX, CBC, CMP, A1C WTH eA, LIPID #### [facility] [address] Lipid Panelon 01-19-2023 LDL Cholesterol,Calculated 72 mg/dL Normal 0-100 [facility] Comment on above: Order Comment: Reaso n for Exam Morbid obesity;Hypercholesteremia Reason for Exam Morbid obesity Result Comment: LDL ATP III CLASSIFICATION LDL less than 100 mg/dL Optimal LDL 100-129 mg/dL Near or above optimal LDL 130-159 mg/dL Borderline high LDL 160-189 mg/dL High LDL greater than 189 mg/dL Very high Performed By: #### T SH3 wRFLX, CBC, CMP, A1C WTH eA, LIPID #### [facility] [address] Triglyceride w/Reflex 107 mg/dL Normal 0-149 [facility] Comment on above: Order Comment: Reaso n for Exam Morbid obesity;Hypercholesteremia Reason for Exam Morbid obesity Result Comment: TRIG ATP III CLASSIFICATION TRIG less than 150 mg/dL Normal TRIG 150-199 mg/dL Borderline high TRIG 200-500 mg/dL High TRIG greater than 500 mg/dL Very high Standard traceable to the Center for Disease Conrtrol and Prevention (CDC) test method. Performed By: #### T SH3 wRFLX, CBC, CMP, A1C WTH eA, LIPID #### [facility] [address] VLDL CHOLESTEROL 21 mg/dL Normal [facility] Comment on above: Order Comment: Reaso n for Exam Morbid obesity;Hypercholesteremia Reason for Exam Morbid obesity Performed By: #### T SH3 wRFLX, CBC, CMP, A1C WTH eA, LIPID #### [facility] [address] Lymphocytes [#/volume] in Bl ood by Automated countOrdered By: Saman Castrejon on 01-19-2023 Lymphocytes (Bld) [#/Vol] 1.2 10*3/uL Normal 1.00-4.8 [facility] Comment on above: Order Comment: Reaso n for Exam Morbid obesity Performed By: #### T SH3 wRFLX, CBC, CMP, A1C WTH eA, LIPID #### [facility] [address] [place] [address] [place] Lymphocytes/100 leukocytes i n Blood by Automated countOrdered By: Saman Castrejon on 01-19-2023 Lymphocytes/100 WBC (Bld) 28.8 % Normal . [facility] Comment on above: Order Comment: Reaso n for Exam Morbid obesity Performed By: #### T SH3 wRFLX, CBC, CMP, A1C WTH eA, LIPID #### [facility] [address] [place] [id number] [place] MCH [Entitic mass] by Automa ant countOrdered By: Saman Castrejon on 01-19-2023 MCH (RBC) [Entitic mass] 29.8 pg Normal 24.7-34.3 [facility] Comment on above: Order Comment: Reaso n for Exam Morbid obesity Performed By: #### T SH3 wRFLX, CBC, CMP, A1C WTH eA, LIPID #### [facility] [address] MCHC Auto (RBC) [Mass/Vol]Or dered By: Saman Castrejon on 01-19-2023 MCHC (RBC) [Mass/Vol] 33.1 g/dL 32.0-35.0 [facility] MCV [Entitic volume] by Auto mated countOrdered By: Saman Castrejon on 01-19-2023 MCV (RBC) [Entitic vol] 90.0 fL Normal 80-100 [facility] Comment on above: Order Comment: Reaso n for Exam Morbid obesity Performed By: #### T SH3 wRFLX, CBC, CMP, A1C [employer] eA, LIPID #### [facility] [address] [place] [address] Neutrophils [#/volume] in Bl ood by Automated countOrdered By: Saman Castrejon on 01-19-2023 Neutrophils (Bld) [#/Vol] 2.6 10*3/uL Normal 1.8-7.7 [facility] Comment on above: Order Comment: Reaso n for Exam Morbid obesity Performed By: #### T SH3 wRFLX, CBC, CMP, A1C [employer] eA, LIPID #### [facility] [address] [place] [address] No Panel InformationOrdered By: Saman Castrejon on 01-19-2023 Estimated GFR (CKD-EPI) > 60.0 mL/Min [facility] Creatinine Clearance (Chem N/A [facility] Nucleated erythrocytes [Pres ence] in Blood by Automated countOrdered By: Saman Castrejon on 01-19-2023 Nucleated RBC Auto Ql (Bld) 0.4 /100{WBC} 0-0.5 [facility] Platelet mean volume [Entiti c volume] in Blood by Automated countOrdered By: Saman Castrejon on 01-19-2023 Platelet mean volume (Bld) [Entitic vol] 10.3 fL Normal 6.3-10.7 [facility] Comment on above: Order Comment: Reaso n for Exam Morbid obesity Performed By: #### T SH3 wRFLX, CBC, CMP, A1C [employer] eA, LIPID #### [facility] [address] [place] [address] [place] Platelets [#/volume] in Bloo d by Automated countOrdered By: Saman Castrejon on 01-19-2023 Platelets (Bld) [#/Vol] 199 10*3/uL Normal 150-450 [facility] Comment on above: Order Comment: Reaso n for Exam Morbid obesity Performed By: #### T SH3 wRFLX, CBC, CMP, A1C WTH eA, LIPID #### [facility] [address] [place] [id number] [facility] Potassium [Moles/volume] in Serum or PlasmaOrdered By: Saman Castrejon on 01-19-2023 Potassium [Moles/Vol] 4.2 mmol/L Normal 3.5-5.1 [facility] Comment on above: Order Comment: Reaso n for Exam Morbid obesity;Hypercholesteremia Reason for Exam Morbid obesity Performed By: #### T SH3 wRFLX, CBC, CMP, A1C WTH eA, LIPID #### [facility] [address] Protein [Mass/volume] in Ser um or PlasmaOrdered By: Saman Castrejon on 01-19-2023 Protein [Mass/Vol] 7.5 g/dL Normal 6.4-8.9 [facility] Comment on above: Order Comment: Reaso n for Exam Morbid obesity;Hypercholesteremia Reason for Exam Morbid obesity Performed By: #### T SH3 wRFLX, CBC, CMP, A1C WTH eA, LIPID #### [facility] [address] [place] [id number] [facility] Serum globulin measurement b y calculation (mass/volume)Ordered By: Saman Castrejon on 01-19-2023 Globulin (S) [Mass/Vol] 3.6 g/dL Normal [facility] Comment on above: Order Comment: Reaso n for Exam Morbid obesity;Hypercholesteremia Reason for Exam Morbid obesity Performed By: #### T SH3 wRFLX, CBC, CMP, A1C WTH eA, LIPID #### [facility] [address] [place] [id number] [facility] Serum or plasma albumin/glob ulin mass ratioOrdered By: Saman Castrejon on 01-19-2023 Albumin/Globulin [Mass ratio] 1.1 {ratio} Normal [facility] Comment on above: Order Comment: Reaso n for Exam Morbid obesity;Hypercholesteremia Reason for Exam Morbid obesity Performed By: #### T SH3 wRFLX, CBC, CMP, A1C WTH eA, LIPID #### [facility] [address] Serum or plasma anion gap de terminationOrdered By: Saman Castrejon on 01-19-2023 Anion gap [Moles/Vol] 10.1 mmol/L Normal 6.0-15.0 [facility] Comment on above: Order Comment: Reaso n for Exam Morbid obesity;Hypercholesteremia Reason for Exam Morbid obesity Performed By: #### T SH3 wRFLX, CBC, CMP, A1C WTH eA, LIPID #### [facility] [address] Serum or plasma high density lipoprotein (HDL) cholesterol measurementOrdered By: Saman Castrejon on 01-19-2023 Cholesterol in HDL [Mass/Vol] 45 mg/dL Normal 23-92 [facility] Comment on above: HDL CHOL ATP-III CLA SSIFICATION Cardiovascular RiskHDL > or equal to 60 mg/dL LOWHDL < 40 mg/dL HIGH Order Comment: Reaso n for Exam Morbid obesity;Hypercholesteremia Reason for Exam Morbid obesity Result Comment: HDL CHOL ATP-III CLASSIFICATION Cardiovascular Risk HDL > or equal to 60 mg/dL LOW HDL < 40 mg/dL HIGH Performed By: #### T SH3 wRFLX, CBC, CMP, A1C WTH eA, LIPID #### [facility] [address] [place] [id number] [facility] Serum or plasma total choles terol/high density lipoprotein (HDL) cholesterol mass ratOrdered By: Saman Castrejon on 01-19-2023 Cholesterol.total/Dolly sterol in HDL [Mass ratio] 3.1 {ratio} Normal <5.0 [facility] Comment on above: Order Comment: Reaso n for Exam Morbid obesity;Hypercholesteremia Reason for Exam Morbid obesity Performed By: #### T SH3 wRFLX, CBC, CMP, A1C WTH eA, LIPID #### [facility] [address] Sodium [Moles/volume] in Ser um or PlasmaOrdered By: Saman Castrejon on 01-19-2023 Sodium [Moles/Vol] 140 mmol/L Normal 136-145 [facility] Comment on above: Order Comment: Reaso n for Exam Morbid obesity;Hypercholesteremia Reason for Exam Morbid obesity Performed By: #### T SH3 wRFLX, CBC, CMP, A1C WTH eA, LIPID #### [facility] [address] Thyroid Stim Hormone w/Rflxo n 01-19-2023 Thyroid Stim Hormone w/Rflx 3.47 u[iU]/mL Normal 0.45-5.33 [facility] Comment on above: Order Comment: Reaso n for Exam Morbid obesity;Hypercholesteremia Reason for Exam Morbid obesity Result Comment: PERF ORMED BY: [place] [address] PATHOLOGIST [employer] SCULLION GRACE ESPARZA M.D. Performed By: #### T SH3 wRFLX, CBC, CMP, A1C WTH eA, LIPID #### [facility] [address] Thyrotropin [Units/volume] i n Serum or PlasmaOrdered By: Saman Castrejon on 01-19-2023 TSH Qn 3.47 m[IU]/L 0.45-5.33 [facility] Triglyceride [Mass/volume] i n Serum or PlasmaOrdered By: Saman Castrejon on 01-19-2023 Triglyceride [Mass/Vol] 107 mg/dL 0-149 [facility] Comment on above: TRIG ATP III CLASSIF ICATIONTRIG less than 150 mg/dL NormalTRIG 150-199 mg/dL Borderline highTRIG 200-500 mg/dL High TRIG greater than 500 mg/dL Very highStandard traceable to the Center for Disease Conrtrol and Prevention (CDC) test method. Urea nitrogen [Mass/volume] in Serum or PlasmaOrdered By: Saman Castrejon on 01-19-2023 Urea nitrogen [Mass/Vol] 22 mg/dL Normal 7-25 [facility] Comment on above: Order Comment: Reaso n for Exam Morbid obesity;Hypercholesteremia Reason for Exam Morbid obesity Performed By: #### T SH3 wRFLX, CBC, CMP, A1C WTH eA, LIPID #### [facility] [address] Progress Noteson 03-18-2022 Health Program Specialist Authentication Interface Message Text EMERGENCY TRIAGE, TREAT AND TRANSPORT (ET3) DOCUMENTATION OF TELEHEALTH VISIT Date / Time: 10/18/2021 / 11:30 Name: Jaclyn An : 1945 SSN: (Not on file) EMS Agency: [facility] [x] Verbal consent obtained [] Implied consent - patient with potential emergency medical condition requiring assessment of capacity to refuse treatment and/or transport VITAL SIGNS: see flowsheet documentation Reason for Telehealth Visit: Chief Complaint Patient presents with Other sympt/complt of eye History of Present Ilness: This is a 76 yo F with asthma and HTN on ASA daily who had sudden onset of right visual field disturbance that resolved on arrival of EMS. She notes that she is not having any visual complaints currently, no numbness tingling weakness or difficulty with speech. No hx of stroke. No CP or SOB. EMS reports [place] Stroke Scale is negative. Pt would like to refuse transport to the ED via EMS. Additional pertinent PMHx, SocHx, FamHx: Asthma and HTN Takes ASA daily SH: No drug use Review of Systems: As above Exam: General: Awake, no distress ENT: normocephalic, atraumatic Pulmonary: No respiratory distress Cardiovascular: Well perfused Neurologic: Oriented to person, place, time and events. Moving all extremities equally. No drift in BL upper exts Psychiatric: Appropriate. Good insight and judgement. Medical Decision Making: This is a 76 yo F with Htn who had sudden onset of right sided visual field disturbance with EMS [place] Stroke Scale negative. My concern with that she is having DIRECTOR [employer] etiology of symptoms such as an acute stroke or TIA or posterior retinal disease such as retinal detachment. Both of which are concerning and she should be evaluated in the ED and transported via EMS. I voiced my concern and recommendations. The patient notes that she will have another person drive her to the ED. She has medical decision making capacity. She will be transported to the ED via friend. Disposition Supported by Telehealth Assessment: ET3 transport decisions: Refused transport EMS Disposition Reported: Same ET3 Encounter Completed by: Harvey Huitron MD Normal [facility] CHEMISTRYOrdered By: SYSTEM SYSTEM on 10-18-2021 Anion gap [Moles/Vol] 14 mmol/L Normal 6 - 16 mEq/L [facility] Calcium [Mass/Vol] 9.5 mg/dL Normal 8.9 - 11. 1 mg/dL [facility] Chloride [Moles/Vol] 103 mmol/L Normal 101 - 1 11 mmol/L [facility] Cholesterol [Mass/Vol] 133 mg/dL Normal 120 - 200 mg/dL [facility] Cholesterol in HDL [Mass/Vol] 41 mg/dL Invalid Interpretation Code [facility] Cholesterol in LDL [Mass/Vol] 71 mg/dL Normal <=129mg/dL [facility] Cholesterol in VLDL [Mass/Vol] 27 mg/dL Normal 7 - 40 mg/dL [facility] CO2 [Moles/Vol] 24 mmol/L Normal 21 - 31 mmol/L [facility] Creatinine [Mass/Vol] 1.0 mg/dL Normal 0.5 - 1.3 mg/dL [facility] GFR/1.73 sq M.predicted among blacks MDRD (S/P/Bld) [Vol rate/Area] mL/min/1.73 m2 Normal >=59mL/min/ 1.73 m2 [facility] Chem S GFR/1.73 sq M.predicted among non-blacks MDRD (S/P/Bld) [Vol rate/Area] 54 mL/min/1.73 m2 Low >=59mL/min/ 1.73 m2 [facility] S Glucose [Mass/Vol] 98 mg/dL Normal 55 - 199 mg/dL [facility] Potassium [Moles/Vol] 4.4 mmol/L Normal 3.5 - 5.3 mmol/L [facility] Sodium [Moles/Vol] 137 mmol/L Normal 135 - 145 mmol/L [facility] Triglyceride [Mass/Vol] 136 mg/dL Normal <=149mg/dL [facility] Troponin I.cardiac [Mass/Vol] 13.60 pg/mL Normal 10.10 - 27.10 pg/mL [facility] Urea nitrogen [Mass/Vol] 24 mg/dL High 5 - 21 mg/dL [facility] Urea nitrogen/Creatinine [Mass ratio] 24 mg/mg High 10 - 20 [facility] CHEMISTRYOrdered By: Rafael bloom on 10-18-2021 HbA1c (Bld) [Mass fraction] 5.8 % Normal <=5.9% [facility] ChemAutoSS COAGULATIONOrdered By: Zena Cali on 10-18-2021 aPTT Coag (PPP) [Time] 29.7 s Normal 25.1 - 36.5 second(s) [facility] Auto Coag INR Coag (PPP) [Relative time] 1.0 {INR} Invalid Interpretation Code [facility] Auto Coag PT Coag (PPP) [Time] 11.5 s Normal 10.2 - 12.9 second(s) [facility] Auto Coag HEMATOLOGYOrdered By: SYSTEM SYSTEM on 10-18-2021 Basophils/100 WBC (Bld) 0.7 % Normal 0.0 - 2.0 % [facility] HemeAutoSS Basophils/Leukocytes Auto (Bld) [Pure # fraction] 0.0 E9/L Normal 0.0 - 0.2 E9/L [facility]eAutoSS Eosinophils/100 WBC (Bld) 2.5 % Normal 0.0 - 8.0 % [facility]eAuto[facility] Eosinophils/Leukocytes Auto (Bld) [Pure # fraction] 0.2 E9/L Normal 0.0 - 0.5 E9/L [facility]eAutoSS Lymphocytes/100 WBC (Bld) 29.3 % Normal 14.0 - 50.0 % [facility]eAutoSS Lymphocytes/Leukocytes Auto (Bld) [Pure # fraction] 1.9 E9/L Normal 1.0 - 4.0 E9/L [facility]eAutoSS Monocytes/100 WBC (Bld) 9.1 % Normal 4.0 - 14.0 % [facility] HemeAutoSS Monocytes/Leukocytes Auto (Bld) [Pure # fraction] 0.6 E9/L Normal 0.2 - 1.0 E9/L [facility]eAutoSS Neutrophils/100 WBC (Bld) 58.4 % Normal 36.0 - 75.0 % [facility] HemeAutoSS Neutrophils/Leukocytes Auto (Bld) [Pure # fraction] 3.8 E9/L Normal 2.0 - 7.5 E9/L [facility] HemeAutoSS HEMATOLOGYOrdered By: Polly Alexander on 10-18-2021 Erythrocyte distribution width (RBC) [Ratio] 14.7 % High 10.9 - 14.2 % [facility]eAuto[facility] Hematocrit (Bld) [Volume fraction] 45.3 % Normal 34.0 - 46.0 % [facility] Hemoglobin (Bld) [Mass/Vol] 14.8 g/dL Normal 12.0 - 16.0 gm/dL [facility] MCH (RBC) [Entitic mass] 29.0 pg Normal 27.0 - 34.0 pg [facility] MCHC (RBC) [Mass/Vol] 32.6 g/dL Normal 31.4 - 36.0 gm/dL [facility] MCV (RBC) [Entitic vol] 89.0 fL Normal 80.0 - 100.0 fL [facility] Platelet mean volume (Bld) [Entitic vol] 9.0 fL Normal 6.4 - 10.8 fL [facility] Platelets (Bld) [#/Vol] 172.0 E9/L Normal 150. 0 - 500.0 E9/L [facility] RBC (Bld) [#/Vol] 5.1 E12/L Normal 4.3 - 5.9 E12/L [facility] WBC corrected for nucl RBC Auto (Bld) [#/Vol] 6.5 E9/L Normal 4.0 - 11.0 E9/L [facility] URINALYSISOrdered By: Cira guerrero on 10-18-2021 Bilirubin Ql (U) Negative (10/18/21 1:48 PM) Normal Negative [facility] UA Auto SS Clarity (U) Clear (10/18/21 1:48 PM) Normal Clear [facility] UA Auto SS Color (U) Yellow (10/18/21 1:48 PM) Normal Yellow [facility] UA Auto SS Epithelial cells.squamous LM.HPF (Urine sed) [#/Area] 0-2 /HPF Normal 0-2/HPF [facility] UA Aut o SS Glucose Test strip (U) [Mass/Vol] Negative (10/18/21 1:48 PM) Normal Negative [facility] UA Auto SS Hemoglobin Ql (U) Negative (10/18/21 1:48 PM) Normal Negative [facility] UA Auto SS Ketones (U) [Mass/Vol] Negative (10/18/21 1:48 PM) Normal Negative [facility] UA Auto SS [place].plasma/[place]. RBC (Bld) [Mass ratio] 0-3 /HPF Normal 0-3/HPF [facility]A A uto SS Nitrite Ql (U) Negative (10/18/21 1:48 PM) Normal Negative [facility] UA Auto SS pH (U) 6.5 *NA* (10/18/21 1:48 PM) Invalid Interpretation Code 5.0 - 9.0 [facility]A Auto SS Protein (U) [Mass/Vol] Negative (10/18/21 1:48 PM) Normal Negative [facility] UA Auto SS Specific gravity (U) [Rel density] 1.010 *NA* (10/18/21 1:48 PM) Invalid Interpretation Code 1.005 - 1.030 [facility] UA Auto SS UA Spec Desc Clean Catch (10/18/21 1:48 PM) Normal [facility] UA Auto SS Urobilinogen Qn (U) [id number] {Zach'U}/dL Normal 0.0 - 1.0 EU/dL [facility] UA Auto SS WBC Auto Ql (U) Negative (10/18/21 1:48 PM) Normal Negative [facility]A Auto SS WBC LM.HPF (Urine sed) [#/Area] 0-5 /HPF Normal 0-5/HPF [facility] UA Auto SS Vital Signs Date Time Vital Sign Value Performing Clinician Faci lity 10-01-2023 21:27-0400 Body temperature 97.7 [degF] tsumobi [facility] 10-01-2023 21:27-0400 Diastolic blood pressure 83 mm[Hg] tsumobi [facility] 10-01-2023 21:27-0400 Heart rate 82 /min tsumobi [facility] 10-01-2023 21:27-0400 Respiratory rate 16 /min [employer] [facility] 10-01-2023 21:27-0400 SaO2% (BldA) [Mass fraction] 95 % Muriel Le [facility] 10-01-2023 21:27-0400 Systolic blood pressure 143 mm[Hg] Muriel Le [facility] 10-19-2021 09:00-0400 Hourly Rounding Dilip Grande [facility] 10-19-2021 09:00-0400 Promise to Return Dilip Grande [facility] 10-19-2021 08:30-0400 SaO2% (BldA) [Mass fraction] 98 % Dilip Grande [facility] 10-19-2021 08:00-0400 Hourly Rounding Dilip Grande [facility] 10-19-2021 08:00-0400 Promise to Return Dilip Grande [facility] 10-19-2021 07:48-0400 Body temperature 98.06 [degF] Dilip Grande [facility] 10-19-2021 07:48-0400 Diastolic blood pressure 80 mm[Hg] Dilip Grande [facility] 10-19-2021 07:48-0400 Heart rate 75 /min Dilip Grande [facility] 10-19-2021 07:48-0400 Mean blood pressure 92 mm[Hg] Dilip Grande [facility] 10-19-2021 07:48-0400 SaO2% (BldA) [Mass fraction] 98 % Dilip Grande [facility] 10-19-2021 07:48-0400 Systolic blood pressure 117 mm[Hg] Dilip Grande [facility] 10-19-2021 07:00-0400 Hourly Rounding Dilip Grande [facility] 10-19-2021 07:00-0400 Promise to Return Dilip Grande [facility] 10-19-2021 04:00-0400 Body temperature 97.52 [degF] Dilip Grande [facility] 10-19-2021 04:00-0400 Diastolic blood pressure 83 mm[Hg] Dilip Grande [facility] 10-19-2021 04:00-0400 Mean blood pressure 97 mm[Hg] Dilip Grande [facility] 10-19-2021 04:00-0400 Respiratory rate 18 /min Dilip Grande [facility] 10-19-2021 04:00-0400 SaO2% (BldA) [Mass fraction] 97 % Dilip Grande [facility] 10-19-2021 04:00-0400 Systolic blood pressure 126 mm[Hg] Dilip Grande [facility] 10-18-2021 23:34-0400 Blood Pressure Location Dilip Grande [facility] 10-18-2021 23:34-0400 Body temperature 98.06 [degF] Dilip Grande [facility] 10-18-2021 23:34-0400 BP/Pulse Patient Position Dilip Grande [facility] 10-18-2021 23:34-0400 Diastolic blood pressure 77 mm[Hg] Dilip Grande [facility] 10-18-2021 23:34-0400 Heart rate 72 /min Dilip Ross [facility] 10-18-2021 23:34-0400 Mean blood pressure 98 mm[Hg] Dilip Ross [facility] 10-18-2021 23:34-0400 Respiratory rate 17 /min Dilip Ross [facility] 10-18-2021 23:34-0400 Systolic blood pressure 141 mm[Hg] Dilip Ross [facility] 10-18-2021 22:00-0400 Heart rate 65 /min Dilip Ross [facility] 10-18-2021 22:00-0400 Mean blood pressure 97 mm[Hg] Dilip Ross [facility] 10-18-2021 22:00-0400 Respiratory rate 20 /min Dilip Ross [facility] 10-18-2021 20:42-0400 Heart rate 84 /min Dilip Ross [facility] 10-18-2021 20:42-0400 Mean blood pressure 98 mm[Hg] Dilip Ross [facility] 10-18-2021 17:30-0400 Heart rate 70 /min Dilip Ross [facility] 10-18-2021 17:30-0400 Mean blood pressure 103 mm[Hg] Dilip Ross [facility] 10-18-2021 15:45-0400 Blood Pressure Location Dilip Ross [facility] 10-18-2021 14:00-0400 Respiratory rate 18 /min Dilip Ross [facility] 10-18-2021 13:14-0400 gluc 91 mg/dL Dilip Grande [facility] 10-18-2021 13:14-0400 gluc Dilip Grande [facility] 10-18-2021 12:47-0400 gluc 91 mg/dL Dilip Grande [facility] 10-18-2021 12:42-0400 Body temperature 98.42 [degF] Dilip Grande [facility] Encounters Encounter Date Encounter Type Care Provider Facility Start: 03-07-2024 End: 03-07-2024 Clinisync Result Encounter Shorty Fraser MD Work Phone: [facility] External [facility] Unsolicited Start: 03-07-2024 End: 03-07-2024 Clinisync Result Encounter Shorty Fraser MD Work Phone: [facility] External [facility] Unsolicited Start: 03-06-2024 End: 03-06-2024 Clinisync Result Encounter Shorty Fraser MD Work Phone: [facility] External [facility] Unsolicited Start: 03-06-2024 End: 03-06-2024 Clinisync Result Encounter Shorty Fraser MD Work Phone: [facility] External [facility] Unsolicited Start: 02-23-2024 End: 02-29-2024 Evaluation and management of inpatient [facility] Facility:[facility] Start: 11-22-2023 End: 11-22-2023 Patient encounter procedure Services [facility] Work Phone: [facility] Car Start: 11-22-2023 End: 11-22-[address] [facility] Work Phone: [facility] Work Phone: Start: 10-01-2023 End: 10-01-2023 Emergency department patient visit Muriel Le [facility] Start: 01-19-2023 End: 01-19-2023 ambulatory Charles Mercado [facility] Work Phone: Start: 01-19-2023 End: 01-19-2023 Departed Referred DO Charles Mercado Work Phone: [facility] Start: 03-18-2022 ambulatory UNKNOWN PROVIDER Facili ty:[facility] Start: 10-18-2021 End: 10-19-2021 Observation Dilip Grande [facility] Procedures Date Procedure Procedure Detail Performing Clinician Start: 03-07-2024 ALL BASIC METABOLIC PANEL Shorty Fraser MD Work Phone: Start: 03-06-2024 ALL CBC WITH AUTO DIFF Shorty Fraser MD Work Phone: section Dilip Grande Plan of Treatment Date Care Activity Detail Author Glucose measurement estimated from glycated hemoglobin [facility] enter [facility] Immunizations Immunization Date Immunization Notes Care Provider Fa jesica 12-27-2016 influenza, high dose seasonal, preservative-free Dilip Grande [facility] Payers Date Payer Category Payer Medicare [id number] 2023 Medicaid [id number] 2023 Private Health Insurance [id number] 2023 Self-pay [id number] 1945 Unknown [id number] 1945 Unknown [id number] 1945 Unknown [id number] 1945 Unknown [id number] 1945 Unknown [id number] 1945 Unknown [id number] 1945 Unknown [id number] 1945 Unknown [id number] 1945 Unknown [id number] Unknown HCAP/HFA/FAP Active [id number] Unknown [id number] Unknown [id number] Social History Date Type Detail Facility Tobacco Unknown if ever smoked [facility] Comment on above: denies Sex Assigned At Female [facility] Start: 1945 Sex Assigned At Female [facility] Tobacco smoking status No Smoking Status Entered [facility] Tobacco smoking status NHIS Tobacco smoking consumption unknown [facility] Start: 1945 Sex assigned at Not on file [facility] Functional Status Date Assessment Result Facility 10-01-2023 Functional Status N/A [facility] 10-18-2021 Functional Status No [facility] 10-18-2021 Functional Status [facility] Clinical Notes 10-18-2021 to 03-01-2024 Note Date & Type Note Facility 03-01-2024 Note Discharge Summary Admission and Discharge Information Admit Date/Time:02/23/2024 17:40 Admitting Physician - Zoe SANTOS MD Consulting Physician - Stefanie Abreu MD Admitting Diagnoses: 1. TATYANA (acute kidney injury), 02/23/2024 8. General weakness, 02/23/2024 9. Physical deconditioning, 02/23/2024 11. Venous ulcer of leg, 02/23/2024 12. Hypoalbuminemia, 02/23/2024 Discharge Diagnoses 1. TATYANA (acute kidney injury), 02/23/2024 2. ATN (acute tubular necrosis), 02/25/2024 3. Proteinuria, 02/25/2024 4. Vitamin D deficiency, 02/27/2024 5. UTI (urinary tract infection) with pyuria, 02/25/2024 6. Clostridium difficile diarrhea, 02/25/2024 7. Hypocalcemia, 02/25/2024 8. General weakness, 02/23/2024 9. Physical deconditioning, 02/23/2024 10. Hypothyroidism, 02/25/2024 11. Venous ulcer of leg, 02/23/2024 12. Hypoalbuminemia, 02/23/2024 13. Troponin level elevated, 02/23/2024 14. Atrial fibrillation, 02/23/2024 15. HTN - Hypertension, 02/23/2024 16. Hypercholesterolemia, 02/23/2024 17. Morbid obesity, 02/23/2024 Jaclyn An is a 78-year-old female with past medical history positive for morbid obesity, hypertension, hyperlipidemia, asthma. She denies smoking history, denies regular alcohol use, denies tobacco use. Patient lives at home with family members caring for her. Patient presented to [facility] 02/23/2024 with complaints of swelling to lower extremity with weeping. Patient reports she was unable to care for herself nor a family able to care for herself. On arrival she was found to be nontoxic, afebrile, normotensive on room air without hypoxia. EKG showed atrial fibrillation with isolated PVC, controlled ventricular response. Prior EKG also showed atrial fibrillation. Chest x-ray was negative. Labs with a BUN 70, creatinine 1.7, calcium 8.1, alk phos of 120, total protein 5.3, albumin 2.1. Her troponin was 50.7 then 51.2. BNP 117. She was admitted for TATYANA, proteinuria, UTI, and hypoalbuminemia. She received IV albumin as well as fluids. She had lower extremity venous duplex which was negative, echocardiogram without significant abnormalities, negative ABIs. She was seen by nephrology. Nephrology felt that TATYANA was due to ATN from volume depletion versus other process due to microscopic immaturity hyperalbuminemia. Renal ultrasound was negative. She will follow-up with nephrology as an outpatient. Given her severe hypoalbuminemia, she was started on protein fortified intake and again will be following up with nephrology to review serum and urine immunofixation results. She was noted to be hypocalcemic due to severe vitamin D deficiency and started on supplements. During her stay she had diarrhea and was found to have C. difficile. She was started on oral vancomycin. She will complete 14-day course total. She did have minimal troponin elevation and had an echocardiogram which was essentially normal. Given her atrial fibrillation and risk for stroke, she was started on Eliquis. She should follow-up with cardiology as an outpatient. Patient was seen by PT OT and recommended for SNF. Patient was accepted to [facility] and is transported in stable condition. Procedure History C SECTION. Hospital Course Significant Findings (02/24/2024 08:32 EST US PVR Lower EXT Limited) IMPRESSION: NORMAL BILATERAL ABIs. [1] (02/24/2024 08:35 EST US LE Venous Duplex Bilateral) IMPRESSION: NO DVT OF EITHER LOWER EXTREMITY IDENTIFIED, WITHIN THE LIMITS OF THE STUDY. [2] (02/24/2024 10:35 EST Echo Transthoracic w/ Contrast) Interpretation Summary Mild with preserved EF [3] (02/27/2024 10:13 EST US Renal) IMPRESSION: NEGATIVE ULTRASOUND OF THE KIDNEYS. [4] Services Consulted Consult to Dietitian Adult - Ordered -- 02/23/24 18:31:00 EST Consult to Nephrology - Ordered -- 02/26/24 13:51:00 EST, TATYANA, Consult and Co-manage Physical Exam Vitals & Measurements T: 36.7 ???C(Axillary) TMIN: 36 ???C(Axillary) TMAX: 36.7 ???C(Axillary) HR: 78(Monitored) RR: 17 BP: 119/73 SpO2: 96% WT: 162.2 kg General: Obese elderly female NAD Skin: Warm, dry, see nsg documentation for wounds Neck: Trachea midline, supple, negative for JVD Eye: Conjunctive are clear, clear sclera , EOMI ENMT: oral mucosa moist, no lesions or edema nose or external ears Cardiovascular: IRR, S1-S2 present, negative for murmurs rubs or gallops Respiratory: Lungs clear to auscultation, bilateral symmetric movement, negative for wheezes rales or rhonchi Chest wall: no deformity. Gastrointestinal: Abdomen soft, bowel sounds present, nontender to palpation Back: No tenderness Extremities: Range of motion intact, no edema Neurological: awake, alert, speech normal, cranial nerves II through XII intact, no sensory defects, alert and oriented x3 Psychiatric: cooperative, affect appropriate for age, pleasant Tests Performed MANDI w/Reflex if POS -- Results Pending -- ANCA -- Results Pending -- C3 Complement -- Results Pending -- (more content not included)... [facility] Comment on above: Result Comment: Elec tronically Signed By: Gabby Orosco CNP\.br\Date and Time Signed: 02/29/24 19:05 EST\.br\Electronically Co-Signed By: Soren Moore DO\.br\Date and Time Co-Signed: 03/01/24 06:58 EST 02-29-2024 Note Progress Note-Physic roberto Subjective No overnight events. She is feeling better but continues to have diarrhea. She is in contact isolation for C. difficile. Review of Systems Constitutional: Generalized weakness Eye: Negative. Ear/Nose/Mouth/Throat: Negative. Respiratory: Negative Cardiovascular: Chronic chest pain for years Gastrointestinal: Poor p.o. intake, chronic abdominal pain for years Genitourinary: Negative. Hematology/Lymphatics: Negative. Endocrine: Negative. Immunologic: Negative Musculoskeletal: Difficulty ambulating, weakness. Integumentary: Lower extremity venous stasis dermatitis. Neurologic: Alert and oriented X4. Psychiatric: Negative. Additional ROS info: Except as noted in the above Review of Systems and in the History of Present Illness all other systems have been reviewed and are negative or noncontributory Objective Vitals & Measurements T: 36.4 ???C(Axillary) TMIN: 36 ???C(Axillary) TMAX: 36.5 ???C(Axillary) HR: 83(Monitored) RR: 16 BP: 132/75 SpO2: 100% WT: 165.00 kg Intake & Output This visit (24 hour periods starting at 07:00 EST) 02/28/24 * 02/27/24 02/26/24 Total Summary Intake mL 120 -- 874 Output mL -- 350 550 Fluid Balance 120 -350 324 Intake (2) Ensure mL -- -- 474 Oral Intake mL 120 -- 400 Total 120 -- 874 Output (1) Urine Voided mL -- 350 550 Total -- 350 550 Counts (2) Stool Count 1 2 1 Urine Count -- 1 1 * This column has not completed the indicated time period. Physical Exam General: Morbidly obese, NAD Head: Normocephalic Eyes: PERRLA HEENT: Mucous membrane dry. Poor dentition. Neck: No JVD Chest: No chest wall deformity, no chest wall tenderness Lungs: Diminished Cardio: Irregularly irregular S1, S2, no murmur, no gallop, no rub. Third space shifting noted. Pulses: Normal capillary refill Abdomen: Obese, non-distended, non-tender, + BS x4 Musculoskeletal: Generalized weakness, weak bilateral lower extremities Integumentary: Warm, dry, BLE venous stasis dermatitis & buttock decubs. Extremity: No clubbing, 2+ below the knee chronic edema Neurologic: Alert, oriented x 4 follows commands Mental status: Cooperative Lab Results WBC: 4.2 E9/L (02/28/24 06:01:00) RBC: 3.7 E12/L Low (02/28/24 06:01:00) HGB: 11.2 gm/dL Low (02/28/24 06:01:00) Hct: 33.1 % Low (02/28/24 06:01:00) MCV: 89 fL (02/28/24 06:01:00) MCH: 30.2 pg (02/28/24 06:01:00) MCHC: 34 gm/dL (02/28/24 06:01:00) RDW: 15.3 % High (02/28/24 06:01:00) Platelet: 191 E9/L (02/28/24 06:01:00) MPV: 8.7 fL (02/28/24 06:01:00) Neutro Auto: 53.5 % (02/28/24 06:01:00) Lymph Auto: 25.9 % (02/28/24 06:01:00) Upson Auto: 9 % (02/28/24 06:01:00) Eos Auto: 11.1 % High (02/28/24 06:01:00) Basophil Auto: 0.5 % (02/28/24 06:01:00) Neutro Absolute: 2.2 E9/L (02/28/24 06:01:00) Lymph Absolute: 1.1 E9/L (02/28/24 06:01:00) Upson Absolute: 0.4 E9/L (02/28/24 06::00) Eos Absolute: 0.5 E9/L (02/28/24 06:01:00) Basophil Absolute: 0 E9/L (02/28/24 06:01:00) Glucose Lvl: 96 mg/dL (02/28/24 06:01:00) BUN: 68 mg/dL High (02/28/24 06:01:00) Creatinine: 1.4 mg/dL High (02/28/24 06:01:00) eGFR: 39 mL/min/1.73 m2 Low (02/28/24 06:01:00) BUN/Creat Ratio: 49 High (02/28/24 06:01:00) Sodium Lvl: 136 mmol/L (02/28/24 06:01:00) Potassium Lvl: 4.6 mmol/L (02/28/24 06:01:00) Chloride: 108 mmol/L (02/28/24 06:01:00) CO2: 27 mmol/L (02/28/24 06:01:00) AGAP: 6 mEq/L (02/28/24 06:01:00) Calcium Lvl: 7.6 mg/dL Low (02/28/24 06:01:00) Alk Phos: 102 Int._Unit/L High (02/28/24 06:01:00) ALT: 13 Int._Unit/L (02/28/24 06:01:00) AST: 19 Int._Unit/L (02/28/24 06:01:00) Total Protein: 4.6 gm/dL Low (02/28/24 06:01:00) Albumin Lvl: 1.8 gm/dL Low (02/28/24 06:01:00) Globulin: 2.8 gm/dL (02/28/24 06:01:00) A/G Ratio: 0.6 Low (02/28/24 06:01:00) Bili Total: 0.5 mg/dL (02/28/24 06:01:00) Assessment/Plan 1. TATYANA due to ATN from volume depletion versus other process due to microscopic hematuria and hypoalbuminemia. -Initial creatinine 1.7 mg/dL, peaked at 1.9 mg/dL, and current creatinine 1.4 mg/dL. UA displayed turbid yellow urine 3+ protein, 2+ blood, RBC, WBC, bacteria, and amorphous crystals. PCR 892.1 mg/g. -No IVF at this time due to the risk of third spacing from severe hypoalbuminemia. -Renal US unremarkable. -Serologies ordered due to microscopic hematuria and unchanged kidney function; results pending. -Next appointment with us will be April 11, 2024 at 9 AM. -Waiting for ECF placement. 2. Severe hypoalbuminemia -This is not due to nephrotic range proteinuria. However given microscopic hematuria, renal dysfunction and hypoalbuminemia, serologies ordered; results pending. Albumin 1.8 g/dL. -Serum and urine immunofixation ordered; results pending. -Primary team to evaluate liver function and nutrition status. -Encourage protein fortified intake. 3. Hypocalcemia due to severe vit (more content not included)... [facility] Comment on above: Result Comment: Elec tronically Signed By: Jamaica Mosley CNP\.br\Date and Time Signed: 02/28/24 17:48 EST\.br\Electronically Co-Signed By: Stefanie Abreu MD\.br\Date and Time Co-Signed: 02/29/24 09:39 EST 02-28-2024 Note Progress Note-Physic roberto Assessment/Plan 1. TATYANA (acute kidney injury) (N17.9: Acute kidney failure, unspecified) Improved Creatinine down to 1.4 Nephrology consulted and following Secondary to UTI as well as C. difficile and poor oral intake Hold nephrotoxic drugs Ordered: [facility] Care/Day Straight Fwd 25 Minutes [id number] 2. ATN (acute tubular necrosis) (N17.0: Acute kidney failure with tubular necrosis) Treatment as above 3. Proteinuria (R80.9: Proteinuria, unspecified) Treatment as above 4. Vitamin D deficiency (E55.9: Vitamin D deficiency, unspecified) Can start patient on supplement 5. UTI (urinary tract infection) with pyuria (N39.0: Urinary tract infection, site not specified) Only 50,000 colonies Patient completed course of Rocephin 6. Clostridium difficile diarrhea (A04.72: Enterocolitis due to Clostridium difficile, not specified as recurrent) Improved Continue p.o. vancomycin 4 times daily 7. Hypocalcemia (E83.51: Hypocalcemia) Can Anthony to vitamin D deficiency Continue calcium carbonate twice daily 8. General weakness (R53.1: Weakness) Secondary to above PT/OT recommended SNF 9. Physical deconditioning (R53.81: Other malaise) Treatment as above 10. Hypothyroidism (E03.9: Hypothyroidism, unspecified) Very mild monitor outpatient Continue Synthroid 11. Venous ulcer of leg (I83.009: 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) Negative DVT, normal ABIs Symptomatic treatment 12. Hypoalbuminemia (E88.09: Other disorders of plasma-protein metabolism, not elsewhere classified) Encourage oral protein intake Ensure twice daily Nutrition following Nephrology following 13. Troponin level elevated (R79.89: Other specified abnormal findings of blood chemistry) stable not likely acute ACS 14. Atrial fibrillation (I48.91: Unspecified atrial fibrillation) rate controlled Recently started on Eliquis Should follow-up with PCP/cardiology 15. HTN - Hypertension (I10: Essential (primary) hypertension) Monitor Holding lisinopril 16. Hypercholesterolemia (E78.00: Pure hypercholesterolemia, unspecified) Statin 17. Morbid obesity (E66.01: Morbid (severe) obesity due to excess calories) Due to comorbidity patient would benefit from weight loss BMI 67 Orders: Basic Metabolic Panel Subjective Patient seen and examined. Patient resting in bed. patient sts diarrhea has decreased. Currently awaiting for SNF. Objective Vitals & Measurements T: 36 ???C(Axillary) TMIN: 36 ???C(Axillary) TMAX: 36.5 ???C(Axillary) HR: 80(Monitored) RR: 16 BP: 127/80 SpO2: 93% WT: 165.00 kg Intake & Output This visit (24 hour periods starting at 07:00 EST) 02/28/24 * 02/27/24 02/26/24 Total Summary Intake mL 120 -- 874 Output mL -- 350 550 Fluid Balance 120 -350 324 Intake (2) Ensure mL -- -- 474 Oral Intake mL 120 -- 400 Total 120 -- 874 Output (1) Urine Voided mL -- 350 550 Total -- 350 550 Counts (2) Stool Count -- 2 1 Urine Count -- 1 1 * This column has not completed the indicated time period. Physical Exam General: NAD Skin: Warm, dry Head: No trauma, normocephalic Neck: Trachea midline, supple, negative for JVD Eye: Conjunctive are clear, clear sclera , EOMI ENMT: oral mucosa moist, no lesions or edema nose or external ears Cardiovascular: IRR, S1-S2 present, negative for murmurs rubs or gallops Respiratory: Lungs clear to auscultation, bilateral symmetric movement, negative for wheezes rales or rhonchi Chest wall: no deformity. Gastrointestinal: Abdomen soft, bowel sounds present, nontender to palpation Back: No tenderness Extremities: Range of motion intact, no edema Neurological: awake, alert, speech normal, cranial nerves II through XII intact, no sensory defects, alert and oriented x3 Psychiatric: cooperative, affect appropriate for age, pleasant Lab Results WBC: 4.2 E9/L (02/28/24 06:01:00) RBC: 3.7 E12/L Low (02/28/24 06:01:00) HGB: 11.2 gm/dL Low (02/28/24 06:01:00) Hct: 33.1 % Low (02/28/24 06:01:00) MCV: 89 fL (02/28/24 06:01:00) MCH: 30.2 pg (02/28/24 06:01:00) MCHC: 34 gm/dL (02/28/24 06:01:00) RDW: 15.3 % High (02/28/24 06:01:00) Platelet: 191 E9/L (02/28/24 06:01:00) MPV: 8.7 fL (12/10/24 06:01:00) Neutro Auto: 53.5 % (02/28/24 06:01:00) Lymph Auto: 25.9 % (02/28/24 06:01:00) Upson Auto: 9 % (02/28/24 06:01:00) Eos Auto: 11.1 % High (02/28/24 06:01:00) Basophil Auto: 0.5 % (02/28/24 06:01:00) Neutro Absolute: 2.2 E9/L (02/28/24 06:01:00) Lymph Absolute: 1.1 E9/L (02/28/24 06:01:00) Upson Absolute: 0.4 E9/L (02/28/24 06:01:00) Eos Absolute: 0.5 E9/L (02/28/24 06:01:00) Basophil Absolute: 0 E9/L (02/28/24 06:01:00) Glucose Lvl: 96 mg/dL (02/28/24 06:01:00) BUN: 68 mg/dL High (02/28/24 06:01:00) Creatinine: 1.4 mg/dL High (02/28/24 06:01:00) eGFR: 39 m (more content not included)... [facility] Comment on above: Result Comment: Elec tronically Signed By: Maxx Heath DO\.br\Date and Time Signed: 02/28/24 13:55 EST 02-27-2024 Note Progress Note-Physic roberto Basic Information 78 y/o female admitted with BLE edema, weakness, TATYANA Assessment/Plan 1. TATYANA (acute kidney injury) (N17.9: Acute kidney failure, unspecified) - Mild improvement today - Cr 1.7, GFR 31 - Nephrology c/s - defer further work up to the nephrology team - Present on admit, likely secondary to UTI, C-diff, poor oral intake with use of KRIS - No history of CKD - Continue to hold lisinopril/nephrotoxic meds - Urinalysis positive - see UTI - Continue to check PVR and call with retention - Defer IVFs to nephrology team - BMP in AM 2. ATN (acute tubular necrosis) (N17.0: Acute kidney failure with tubular necrosis) - Nephrology c/s - defer further workup to them - serologies ordered and are pending - Ensure for increased protein intake ordered 3. Proteinuria (R80.9: Proteinuria, unspecified) - See above 4. Vitamin D deficiency (E55.9: Vitamin D deficiency, unspecified) - Severe vitamin D deficiency - Twice weekly ergocalciferol started per nephrology recommendations 5. UTI (urinary tract infection) with pyuria (N39.0: Urinary tract infection, site not specified) - Continue IVPB Rocephin daily - No concern for sepsis at this time 6. Clostridium difficile diarrhea (A04.72: Enterocolitis due to Clostridium difficile, not specified as recurrent) - Improving - No loose stools x 12 hrs - Continue Vanco PO QID - will need prolonged administration after Rocephin dosing is completed - Contact isolation 7. Hypocalcemia (E83.51: Hypocalcemia) - Continue to monitor CC - Likely 2/2 severe vitamin D deficiency - Continue Calcium Carb BID 8. General weakness (R53.1: Weakness) - PT/OT to evaluate for possible placement - Requires assist x 2, SNF recommended 9. Physical deconditioning (R53.81: Other malaise) - As above 10. Hypothyroidism (E03.9: Hypothyroidism, unspecified) - Started on Levothyroxine 25mcg - Repeat TSH as an OP 11. Venous ulcer of leg (I83.009: 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) Plan as per below. - Chronic lower extremity edema with venous stasis dermatitis; Do not feel this is acutely infectious - Continue Venous stasis dermatitis/ulcer wound care protocol - LE Venous Duplex and PVRs - neg for DVT, normal ABIs (02/24/24) - Check TSH see above - BNP slightly elevated but fairly recent echo with structurally normal heart, - Repeat echo - repeat Echo 02/24/24 unremarkable 12. Hypoalbuminemia (E88.09: Other disorders of plasma-protein metabolism, not elsewhere classified) - Chronically low albumin likely contributing to LE edema - Defer further IV Albumin to nephrology. - Push oral protein - Ensure BID ordered - CMP in am - [employer] Intern consult 13. Troponin level elevated (R79.89: Other specified abnormal findings of blood chemistry) - Stable not likely acute ACS 14. Atrial fibrillation (I48.91: Unspecified atrial fibrillation) Rate controlled plan as below - Patient is currently in AF, was in AF when ECG done in 2021 - She has no recollection of this dx, nor does she take AC - Initiate Eliquis BID - does not require renal adjustment per pharmacy 15. HTN - Hypertension (I10: Essential (primary) hypertension) - Lisinopril documented as outpatient- > will continue to hold given #1 - Continue PRN IV Hydralazine 16. Hypercholesterolemia (E78.00: Pure hypercholesterolemia, unspecified) - Statin 17. Morbid obesity (E66.01: Morbid (severe) obesity due to excess calories) - Advised diet and exercise Orders: ergocalciferol, 50,000 unit(s) = 1 cap(s), Cap, Oral, TueFri for 12 week(s), Stop date 05/22/24 8:59:00 EST, Routine, Start date 02/28/24 9:00:00 EST, 02/27/24 16:51:00 EST Basic Metabolic Panel CBC w/ Auto Diff CBC w/ Auto Diff Comprehensive Metabolic Panel eGFR Lab Miscellaneous-LC Subjective Pt feeling better today, but continues to be weak. SNF planned for rehab strengthening at discharge. Nephrology consult today for TATYANA/ATN/proteinuria/hypoalbunemia Objective Vitals & Measurements T: 36.3 ???C(Oral) TMIN: 36.3 ???C(Oral) TMAX: 36.6 ???C(Axillary) HR: 80(Monitored) RR: 16 BP: 129/73 SpO2: 98% WT: 161.4 kg Intake & Output This visit (24 hour periods starting at 07:00 EST) 02/27/24 * 02/26/24 02/25/24 Total Summary Intake mL -- 874 280.01 Output mL -- 550 -- Fluid Balance -- 324 280.01 Intake (3) Ensure mL -- 474 237 Oral Intake mL -- 400 -- Sodium Chloride 0.9%, ceftriaxone mL -- -- 43.01 Total -- 874 280.01 Output (1) Urine Voided mL -- 550 -- Total -- 550 -- Counts (2) Stool Count 1 1 2 Urine Count 1 1 -- * This column has not completed the indicated time period. Physical Exam General: alert, no acute distress Skin: warm, dry Head: no trauma, normocephalic Neck: Trachea midline, no adenopathy, no tenderness Eye: normal conjunctiva, sclera clear ENMT: oral (more content not included)... [facility] Comment on above: Result Comment: Elec tronically Signed By: Ginna Junior\.br\Date and Time Signed: 02/27/24 17:08 EST\.br\Electronically Co-Signed By: Soren Moore DO\.br\Date and Time Co-Signed: 02/27/24 17:28 EST 02-27-2024 Note Consultation Note Basic Information 78-year-old WF with history of morbid obesity, HTN, and HLD presented to the ED with complaint of BLE edema and weeping. She has been having diarrhea at home and tested positive for C. difficile. She does live alone at home and family members come to assist in her ADLs. She stated to staff that she is no longer able to care for herself at home. She is requesting ECF placement upon discharge. Initial creatinine 1.7 mg/dL and peaked at 1.9 mg/dL. Current creatinine is 1.7 mg/dL after receiving IVF. CXR unremarkable. 2D echo displayed mild with preserved EF. She states that she does not have a known history of kidney disease. Nephrology has been consulted for TATYANA management. Subjective No overnight events. Continues to have diarrhea. She is in contact isolation for C. difficile. Review of Systems Constitutional: Generalized weakness Eye: Negative. Ear/Nose/Mouth/Throat: Negative. Respiratory: Negative Cardiovascular: Chronic chest pain for years Gastrointestinal: Poor p.o. intake, chronic abdominal pain for years, area Genitourinary: Negative. Hematology/Lymphatics: Negative. Endocrine: Negative. Immunologic: Negative Musculoskeletal: Difficulty ambulating, weakness. Integumentary: Lower extremity venous stasis dermatitis. Neurologic: Alert and oriented X4. Psychiatric: Negative. Additional ROS info: Except as noted in the above Review of Systems and in the History of Present Illness all other systems have been reviewed and are negative or noncontributory Objective Vitals & Measurements T: 36.3 ???C(Oral) TMIN: 36.3 ???C(Oral) TMAX: 36.6 ???C(Axillary) HR: 77(Monitored) RR: 16 BP: 129/73 SpO2: 98% WT: 161.4 kg Intake & Output This visit (24 hour periods starting at 07:00 EST) 02/27/24 * 02/26/24 02/25/24 Total Summary Intake mL -- 874 280.01 Output mL -- 550 -- Fluid Balance -- 324 280.01 Intake (3) Ensure mL -- 474 237 Oral Intake mL -- 400 -- Sodium Chloride 0.9%, ceftriaxone mL -- -- 43.01 Total -- 874 280.01 Output (1) Urine Voided mL -- 550 -- Total -- 550 -- Counts (2) Stool Count 1 1 2 Urine Count 1 1 -- * This column has not completed the indicated time period. Physical Exam General: Morbidly obese, NAD Head: Normocephalic Eyes: PERRLA HEENT: Mucous membrane dry. Poor dentition. Neck: No JVD Chest: No chest wall deformity, no chest wall tenderness Lungs: Diminished Cardio: Irregularly irregular S1, S2, no murmur, no gallop, no rub. Third space shifting noted. Pulses: Normal capillary refill Abdomen: Obese, non-distended, non-tender, + BS x4 Musculoskeletal: Generalized weakness, weak bilateral lower extremities Integumentary: Warm, dry, BLE venous stasis dermatitis & buttock decubs. Extremity: No clubbing, 2+ below the knee chronic edema Neurologic: Alert, oriented x 4 follows commands Mental status: Cooperative Lab Results WBC: 4 E9/L (02/27/24 07:59:00) RBC: 3.8 E12/L Low (02/27/24 07:59:00) HGB: 11.4 gm/dL Low (02/27/24 07:59:00) Hct: 33.7 % Low (02/27/24 07:59:00) MCV: 89.5 fL (02/27/24 07:59:00) MCH: 30.3 pg (02/27/24 07:59:00) MCHC: 33.9 gm/dL (02/27/24 07:59:00) RDW: 15 % High (02/27/24 07:59:00) Platelet: 198 E9/L (02/27/24 07:59:00) MPV: 8.3 fL (02/27/24 07:59:00) Neutro Auto: 52.9 % (02/27/24 07:59:00) Lymph Auto: 24.6 % (02/27/24 07:59:00) Upson Auto: 10.8 % (02/27/24 07:59:00) Eos Auto: 11.2 % High (02/27/24 07:59:00) Basophil Auto: 0.5 % (02/27/24 07:59:00) Neutro Absolute: 2.1 E9/L (02/27/24 07:59:00) Lymph Absolute: 1 E9/L (02/27/24 07:59:00) Upson Absolute: 0.4 E9/L (02/27/24 07:59:00) Eos Absolute: 0.4 E9/L (02/27/24 07:59:00) Basophil Absolute: 0 E9/L (02/27/24 07:59:00) Glucose Lvl: 106 mg/dL (02/27/24 07:59:00) BUN: 71 mg/dL High (02/27/24 07:59:00) Creatinine: 1.7 mg/dL High (02/27/24 07:59:00) eGFR: 31 mL/min/1.73 m2 Low (02/27/24 07:59:00) BUN/Creat Ratio: 42 High (02/27/24 07:59:00) Sodium Lvl: 137 mmol/L (02/27/24 07:59:00) Potassium Lvl: 4.2 mmol/L (02/27/24 07:59:00) Chloride: 107 mmol/L (02/27/24 07:59:00) CO2: 27 mmol/L (02/27/24 07:59:00) AGAP: 7 mEq/L (02/27/24 07:59:00) Calcium Lvl: 7.6 mg/dL Low (02/27/24 07:59:00) Vitamin D 25 Hydroxy: <7.0 Low (02/27/24 09:09:00) Assessment/Plan 1. TATYANA due to ATN from volume depletion versus other process due to microscopic hematuria and hypoalbuminemia. -Initial creatinine 1.7 mg/dL, peaked at 1.9 mg/dL, and current creatinine 1.7 mg/dL. UA displayed turbid yellow urine 3+ protein, 2+ blood, RBC, WBC, bacteria, and amorphous crystals. PCR 892.1 mg/g. -No IVF at this time due to the risk of third spacing from severe hypoalbuminemia. -Renal US ordered. -Serologies ordered due to microscopic hematuria and unchanged kidney function. -Next appointment with us will be April 11, 2024 at 9 AM. 2. Severe hypoalbuminemia -This i (more content not included)... [facility] Comment on above: Result Comment: Elec tronically Signed By: Jamaica Mosley CNP\.br\Date and Time Signed: 02/27/24 12:01 EST\.br\Electronically Co-Signed By: Jamaica Mosley CNP\.br\Date and Time Co-Signed: 02/27/24 13:00 EST\.br\Electronically Co-Signed By: Stefanie Abreu MD\.br\Date and Time Co-Signed: 02/27/24 14:18 EST 02-26-2024 Note Progress Note-Physic roberto Assessment/Plan 1. TATYANA (acute kidney injury) (N17.9: Acute kidney failure, unspecified) - Not improving so far - Cr 1.8, GFR 29 today Will consult nephrology - Present on admit, likely secondary to UTI, C-diff, poor oral intake with use of KRIS - No history of CKD - Continue to hold lisinopril/nephrotoxic meds - Urinalysis positive - see UTI - Proteinuria noted along with high urine protein/creatinine ratio - Continue to check PVR and call with retention - Resume Gentle IVF at 75 ml/hr - BMP in AM [1] Ordered: Consult to Nephrology [facility] Care/Day High 50 Minutes [id number] 2. ATN (acute tubular necrosis) (N17.0: Acute kidney failure with tubular necrosis) - As above Ordered: Consult to Nephrology [facility] Hospital Care/Day High 50 Minutes [id number] 3. Proteinuria (R80.9: Proteinuria, unspecified) - As above Ordered: Consult to Nephrology [facility] Hospital Care/Day High 50 Minutes [id number] 4. UTI (urinary tract infection) with pyuria (N39.0: Urinary tract infection, site not specified) - UA obtained with straight cath on evening 02/24/24 - Pos UTI noted today - start IVPB Rocephin daily - No concern for sepsis at this time [2] Ordered: Consult to Nephrology [facility] Hospital Care/Day High 50 Minutes [id number] 5. Clostridium difficile diarrhea (A04.72: Enterocolitis due to Clostridium difficile, not specified as recurrent) - Pt started to have loose stools 2 days ago - C-diff ordered and obtained - resulted positive yesterday - Start Vanco PO QID - will need prolonged administration after Rocephin dosing is completed - Contact isolation [3] Ordered: Consult to Nephrology [facility] Hospital Care/Day High 50 Minutes [id number] 6. Hypocalcemia (E83.51: Hypocalcemia) Continue plan as below from yesterday - Low normal (9.5) when corrected for albumin - Unclear etiology - Start Calcium Carb BID Ordered: Consult to Nephrology [facility] [place] Care/Day High 50 Minutes [id number] 7. General weakness (R53.1: Weakness) - PT/OT to evaluate for possible placement - Requires assist x 2, SNF recommended [4] Ordered: Consult to Nephrology [facility] [place] Care/Day High 50 Minutes [id number] 8. Physical deconditioning (R53.81: Other malaise) - As above Ordered: Consult to Nephrology [facility] [place] Care/Day High 50 Minutes [id number] 9. Hypothyroidism (E03.9: Hypothyroidism, unspecified) - Started on Levothyroxine 25mcg - Repeat TSH as an OP Ordered: Consult to Nephrology [facility] [place] Care/Day High 50 Minutes [id number] 10. Venous ulcer of leg (I83.009: 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) Plan as per below. - Chronic lower extremity edema with venous stasis dermatitis; Do not feel this is acutely infectious - Continue Venous stasis dermatitis/ulcer wound care protocol - LE Venous Duplex and PVRs - neg for DVT, normal ABIs (02/24/24) - Check TSH see above - BNP slightly elevated but fairly recent echo with structurally normal heart, - Repeat echo - repeat Echo 02/24/24 unremarkable [5] Ordered: Consult to Nephrology [facility] [place] Care/Day High 50 Minutes [id number] 11. Hypoalbuminemia (E88.09: Other disorders of plasma-protein metabolism, not elsewhere classified) - Chronically low albumin likely contributing to LE edema - No further IV Albumin planned at this time. Push oral protein. - CMP in am - [employer] consult [6] Ordered: Consult to Nephrology [facility] [place] Care/Day High 50 Minutes [id number] 12. Troponin level elevated (R79.89: Other specified abnormal findings of blood chemistry) - Stable not likely acute ACS Ordered: Consult to Nephrology [facility] [place] Care/Day High 50 Minutes [id number] 13. Atrial fibrillation (I48.91: Unspecified atrial fibrillation) Rate controlled plan as below - Patient is currently in AF, was in AF when ECG done in 2021 - She has no recollection of this dx, nor does she take AC - Initiate Eliquis BID - does not require renal adjustment per pharmacy [7] Ordered: Consult to Nephrology [facility] [place] Care/Day High 50 Minutes [id number] 14. HTN - Hypertension (I10: Essential (primary) hypertension) - Lisinopril documented as outpatient- > will hold given #1 - Continue PRN IV Hydralazine [8] Ordered: Consult to Nephrology [facility] [place] Care/Day High 50 Minutes [id number] 15. Hypercholesterolemia (E78.00: Pure hypercholesterolemia, unspecified) - Statin Ordered: Consult to Nephrology [facility]/Day High 50 Minutes [id number] 16. Morbid obesity (E66.01: Morbid (severe) obesity due to excess calories) - Advised diet and exercise Ordered: Consult to Nephrology [facility]/Day High 50 Minutes [id number] Orders: Basic Metabolic Panel eGFR Possible discharge tomorrow after nephrology sees the patient. Subjective Patient seen and examined at bedside. Patient was still having diffuse diarrhea. Otherwise no other concerns per the patient. Objective Vitals & (more content not included)... [facility] Comment on above: Result Comment: Elec tronically Signed By: Harjinder DASH, Dilip Baron\.br\Date and Time Signed: 02/26/24 13:57 EST 02-25-2024 Note Progress Note-Physic roberto Basic Information 78 y/o female admitted with BLE edema, weakness, TATYANA Assessment/Plan Time of exam: 854 1. TATYANA (acute kidney injury) (N17.9: Acute kidney failure, unspecified) - Not improving so far - Cr 1.8, GFR 29 today - Present on admit, likely secondary to UTI, C-diff, poor oral intake with use of KRIS - No history of CKD - Continue to hold lisinopril/nephrotoxic meds - Urinalysis positive - see UTI - Proteinuria noted along with high urine protein/creatinine ratio - Consider nephrology consult on Tuesday - no-one personal secretary over the weekend - Continue to check PVR and call with retention - Resume Gentle IVF at 75 ml/hr - BMP in AM Ordered: [facility] [place] Care/Day Moderate 35 Minutes [id number] 2. ATN (acute tubular necrosis) (N17.0: Acute kidney failure with tubular necrosis) - Suspected w/ TATYANA and proteinuria - see above 3. Proteinuria (R80.9: Proteinuria, unspecified) - See above 4. UTI (urinary tract infection) with pyuria (N39.0: Urinary tract infection, site not specified) - UA obtained with straight cath on evening 02/24/24 - Pos UTI noted today - start IVPB Rocephin daily - No concern for sepsis at this time 5. Clostridium difficile diarrhea (A04.72: Enterocolitis due to Clostridium difficile, not specified as recurrent) - Pt started to have loose stools yesterday afternoon - C-diff ordered and obtained - resulted positive this morning - Start Vanco PO QID - will need prolonged administration after Rocephin dosing is completed - Contact isolation 6. Hypocalcemia (E83.51: Hypocalcemia) - Low normal (9.5) when corrected for albumin - Unclear etiology - Start Calcium Carb BID - BMP in AM 7. General weakness (R53.1: Weakness) - PT/OT to evaluate for possible placement - Requires assist x 2, SNF recommended 8. Physical deconditioning (R53.81: Other malaise) - PT/OT to evaluate for possible placement - see above 9. Hypothyroidism (E03.9: Hypothyroidism, unspecified) - TSH elevated at 9.77, low normal FT4 - pt not previously diagnosed with hypothyroidism - Start levothyroxine at 25 mcg daily - Plan repeat TSH 1 mo after discharge 10. Venous ulcer of leg (I83.009: 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) - Chronic lower extremity edema with venous stasis dermatitis; Do not feel this is acutely infectious - Continue Venous stasis dermatitis/ulcer wound care protocol - LE Venous Duplex and PVRs - neg for DVT, normal ABIs (02/24/24) - Check TSH see above - BNP slightly elevated but fairly recent echo with structurally normal heart, - Repeat echo - repeat Echo 02/24/24 unremarkable 11. Hypoalbuminemia (E88.09: Other disorders of plasma-protein metabolism, not elsewhere classified) - Chronically low albumin likely contributing to LE edema - No further IV Albumin planned at this time. Push oral protein. - CMP in am - [employer] consult 12. Troponin level elevated (R79.89: Other specified abnormal findings of blood chemistry) - Chronically low albumin likely contributing to LE edema - No further IV Albumin planned at this time - Ensure BID - CMP in am - [employer] consult - pending recommendations 13. Atrial fibrillation (I48.91: Unspecified atrial fibrillation) - Patient is currently in AF, was in AF when ECG done in 2021 - She has no recollection of this dx, nor does she take AC - Initiate Eliquis BID - does not require renal adjustment per pharmacy 14. HTN - Hypertension (I10: Essential (primary) hypertension) - Lisinopril documented as outpatient- > will hold given #1 - Continue PRN IV Hydralazine 15. Hypercholesterolemia (E78.00: Pure hypercholesterolemia, unspecified) - Continue home statin 16. Morbid obesity (E66.01: Morbid (severe) obesity due to excess calories) - advise weight loss Orders: albuterol, 2.5 mg, 3 mL, Soln-Inh, Inhalation, QID, Routine, Start date 02/24/24 20:00:00 EST apixaban, 5 mg = 1 tab(s), Tab, Oral, BID for 30 day(s), Stop date 03/25/24 20:59:00 EST, Start date 02/24/24 21:00:00 EST calcium carbonate, 500 mg = 1 tab(s), Tab-Chew, Oral, BID, Routine, Start date 02/25/24 9:00:00 EST ceftriaxone + Sodium Chloride 0.9% intravenous solution 50 mL, 1,000 mg = 1 EA, Injection, IV Piggyback, Daily, Routine, Start date 02/25/24 9:00:00 EST, 100 mL/hr, Infuse over 30 minute(s) Ensure, 237 mL, Liquid, Oral, BIDWM, Routine, Start date 02/25/24 17:00:00 EST, Over Ice levothyroxine, 25 microgram = 1 tab(s), Tab, Oral, Daily, Routine, Start date 02/26/24 6:30:00 EST, 02/25/24 13:54:00 EST Sodium Chloride 0.9% intravenous solution 1,000 mL, 1,000 mL, IV, 75 mL/hr, for 1 dose(s), Stop date 02/25/24 10:12:00 EST, Routine, Start date 02/23/24 18:19:00 EST, 13.3 hour(s), Total volume (mL): 1,000, 155 kg, 2.56, m2 vancomycin, 125 mg = 1 cap(s), Cap-IR, Oral, QID, Routine, Start date 02/25/24 13:00:00 EST, 02/25/24 10:44:00 EST CBC w/ Auto Diff Clostridium di (more content not included)... [facility] Comment on above: Result Comment: Elec tronically Signed By: Andrew BUTLER, Ginna Landin\.br\Date and Time Signed: 02/25/24 14:07 EST\.br\Electronically Co-Signed By: DANIELLE DASH, Zoe\.br\Date and Time Co-Signed: 02/25/24 14:48 EST 02-25-2024 Note Progress Note-Physic roberto Assessment/Plan 1. TATYANA (acute kidney injury) (N17.9: Acute kidney failure, unspecified) Present on admit, likely secondary to poor oral intake with use of KRIS No history of CKD Continue to hold lisinopril Check UA, Urine Protein/Creatinine ratio - pending collection Check PVR and call with retention Gentle IVF at 75 ml/hr Trend BMP 2. General weakness (R53.1: Weakness) PT/OT to evaluate for possible placement 3. Physical deconditioning (R53.81: Other malaise) PT/OT to evaluate for possible placement 4. 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 Hypoalbuminemia (E88.09: Other disorders of plasma-protein metabolism, not elsewhere classified) Chronically low albumin likely contributing to LE edema No further IV Albumin planned at this time CMP in am [employer] Intern consult 6. Troponin level elevated (R79.89: Other specified abnormal findings of blood chemistry) Minimal, flat in setting of TATYANA remains flat Update echocardiogram given edema to LE Consider consult cards pending clinical course 7. Atrial fibrillation (I48.91: Unspecified atrial fibrillation) Patient is currently in AF, was in AF when ECG done in 2021 She has no recollection of this dx, nor does she take AC Initiate renally adjusted Eliquis ([id number] is high), would be poor candidate for warfarin due to compliance issues Rate remains controlled 8. HTN - Hypertension (I10: Essential (primary) hypertension) Lisinopril documented as outpatient- > will hold given #1 PRN IV Hydralazine 9. Hypercholesterolemia (E78.00: Pure hypercholesterolemia, unspecified) Continue home statin 10. Morbid obesity (E66.01: Morbid (severe) obesity due to excess calories) advise weight loss Orders: albuterol, 2.5 mg, 3 mL, Soln-Inh, Inhalation, QID, Routine, Start date 02/24/24 20:00:00 EST apixaban, 2.5 mg = 1 tab(s), Tab, Oral, BID, Routine, Start date 02/24/24 21:00:00 EST, 02/24/24 15:58:00 EST perflutren, 1.3 mL, Injection, IV Push, Once, Stop date 02/24/24 10:00:00 EST, Routine, Start date 02/24/24 10:00:00 EST Sodium Chloride 0.9% intravenous solution 1000 mL, 1,000 mL, IV, 75 mL/hr, Routine, Start date 02/23/24 18:19:00 EST, 13.3 hour(s), Total volume (mL): 1,000, 155 kg, 2.56, m2 Basic Metabolic Panel CBC w/ Auto Diff Clostridium Difficile PCR Comprehensive Metabolic Panel Straight Cath Straight Cath Subjective The pt is resting comfortably in bed at the time of my exam. She denies any CP, SOB, N/V/D, or abdominal pain. Her renal function is stable but not significantly improved so far. We will continue gentle IVFs for now and monitor. Objective Vitals & Measurements T: 36.4 ???C(Axillary) TMIN: 36.4 ???C(Axillary) TMAX: 36.7 ???C(Axillary) HR: 75(Monitored) RR: 16 BP: 150/63 SpO2: 96% HT: 152 cm WT: 161.8 kg Intake & Output This visit (24 hour periods starting at 07:00 EST) 02/24/24 * 02/23/24 02/22/24 Total Summary Intake mL 1.3 923.54 -- Output mL -- -- -- Fluid Balance 1.3 923.54 -- Intake (3) Generic Diluent, albumin human mL -- 94.98 -- Sodium Chloride 0.9% intravenous solution 1000 mL mL -- 828.56 -- perflutren mL 1.3 -- -- Total 1.3 923.54 -- Output (0) Counts (2) Stool Count 1 -- -- Urine Count 2 -- -- * This column has not completed the indicated time period. Physical Exam General: alert, no acute distress, morbidly obese Skin: warm, dry Head: no trauma, normocephalic Neck: Trachea midline, no adenopathy, no tenderness Eye: normal conjunctiva, sclera clear ENMT: oral mucosa moist Cardiovascular: irregularly-irregular rhythm, normal rate, normal peripheral perfusion, HSM 2/6 Respiratory: Lungs CTA, respirations non labored, Diminished bases bilaterally Chest wall: no deformity. Gastrointestinal: soft, non distended, no tenderness, no guarding. Back: No tenderness, Normal ROM, Normal alignment. Extremities: no deformity, no trauma Neurological: oriented x 4, LOC appropriate for age, CN II-XII intact, motor strength equal & normal bilaterally, sensation equal & normal bilaterally, speech normal Psychiatric: cooperative, affect appropriate for age, normal judgement, normal psychiatric thoughts. Lab Results WBC: 3.7 E9/L Low (02/24/24 06:16:00) RBC: 3.5 E12/L Low (02/24/24 06:16:00) HGB: 11 gm/dL Low (02/24/24 06:16:00) Hct: 31.6 % Low (02/24/24 06:16:00) MCV: 89.5 fL (02/24/24 06:16:00) MCH: 31 pg (02/24/24 06:16:00) MCHC: 34.7 gm/dL (02/24/24 06:16:00) RD (more content not included)... [facility] Comment on above: Result Comment: Elec tronically Signed By: Ginna Junior\.br\Date and Time Signed: 02/24/24 16:16 EST\.br\Electronically Co-Signed By: DANIELLE DASH, Zoe\.br\Date and Time Co-Signed: 02/25/24 14:00 EST 10-02-2023 Hospital Discharge instructions Patient Education 10/01/2023 23:32:39 Shoulder Range of Motion Exercises Shoulder Range of Motion Exercises Shoulder range of motion (ROM) exercises are done to keep the shoulder moving freely or to increase movement. They are recommended for people who have shoulder pain or stiffness or who are recovering from a shoulder surgery. Ask your health care provider which exercises are safe for you. Do exercises exactly as told by your health care provider and adjust them as directed. It is normal to feel mild stretching, pulling, tightness, or discomfort as you do these exercises. Stop right away if you feel sudden pain or your pain gets worse. Do not begin these exercises until told by your health care provider. Phase 1 exercise When you are able, do this exercise 1 2 times a day for 30 60 seconds in each direction, or as directed by your health care provider. Pendulum exercise To do this exercise while sittin.Sit in a chair or at the edge of your bed with your feet flat on the floor. 2.Let your affected arm hang down in front of you over the edge of the bed or chair. 3.Relax your shoulder, arm, and hand. 4.Rock your body so your arm gently swings in small circles. You can also use your unaffected arm to start the motion. 5.Repeat, changing the direction of the circles, swinging your arm left and right, and swinging your arm forward and back. To do this exercise while standin.Stand next to a sturdy chair or table, and hold on to it with your hand on your unaffected side. 2.Bend forward at the waist. 3.Bend your knees slightly. 4.Relax your shoulder, arm, and hand. 5.While keeping your shoulder relaxed, use body motion to swing your arm in small circles. 6.Repeat, changing the direction of the circles, swinging your arm left and right, and swinging your arm forward and back. 7.Between exercises, stand up tall and take a short break to relax your lower back. Phase 2 exercises Do these exercises 1 2 times a day or as told by your health care provider. Hold each stretch for 30 seconds, and repeat 3 times. Do the exercises with one or both arms as instructed by your health care provider. For these exercises, sit at a table with your hand and arm supported by the table. A chair that slides easily or has wheels can be helpful. External rotation 1.Turn your chair so that your affected side is nearest to the table. 2.Place your forearm on the table to your side. Bend your arm to about a 90-degree angle (right angle) at the elbow, and place your hand palm-down on the table. Your elbow should be about 6 inches (15 cm) away from your side. 3.Keeping your arm on the table, lean your body forward. Abduction 1.Turn your chair so that your affected side is nearest to the table. 2.Place your forearm and hand on the table so that your thumb points toward the ceiling and your arm is straight out to your side. 3.Slide your hand out to the side and away from you. 4.To increase the stretch, you can slide your chair away from the table. Flexion: forward stretch 1.Sit facing the table. Place your hand and elbow on the table in front of you. 2.Slide your hand forward and away from you, using your unaffected arm to do the work. 3.To increase the stretch, you can slide your chair backward. Phase 3 exercises Do these exercises 1 2 times a day or as told by your health care provider. Hold each stretch for 30 seconds, and repeat 3 times. Do the exercises with one or both arms as instructed by your health care provider. You will need a cane, a piece of PVC pipe, or a sturdy wooden dowel for the wand exercises. Cross-body stretch: posterior capsule stretch 1.Lift your arm straight out in front of you. 2.Bend your arm in a 90-degree angle (right angle) at the elbow so your forearm moves across your body. 3.Use your other arm to gently pull the elbow across your body, toward your other shoulder. Wall climbs 1.Stand with your affected arm extended out to the side with your hand resting on a door frame. 2.Slide your hand slowly up the door frame. 3.To increase the stretch, step through the door frame. Keep your body upright and do not lean. Flexion To do this exercise while standin.Hold the wand with both of your hands, palms-down. 2.Lift the wand up and over your head, if able. Lift mostly with your affected arm, and use the other arm to help. 3.Push upward with your other arm to gently increase the stretch. To do this exercise while lying down: 1.Lie on your back with your elbows resting on the floor and the wand in both your hands. Your hands will be palm-down, or pointing toward your feet. 2.Lift your hands toward the ceiling, using your unaffected arm to help if needed. 3.Bring your arms overhead as able, using your unaffected arm to help if needed. Internal rotation 1.Stand while holding the wand behind you with both hands. Your unaffected arm should be extended above your head with the arm of the affected side extended behind you at the level of your waist. The wand should be pointing straight up and down as you hold it. 2.Slowly pull the wand up behind your back by straightening the elbow of your unaffected arm and bending the elbow of your affected arm. External rotation 1.Lie on your back with your affected upper arm supported on a small pillow or rolled towel. When you first do this exercise, keep your upper arm close to your body. Over time, bring your arm up to a 90-degree angle (right angle) out to the side. 2.Hold the wand across your stomach and with both hands palm-up. Your elbow on your affected side should be bent at a 90-degree angle. 3.Use your unaffected side to help push your forearm away from you and toward the floor. Keep your elbow on your affected side bent at a 90-degree angle. This information is not intended to replace advice given to you by your health care provider. Make sure you discuss any questions you have with your health care provider. Document Revised: 04/27/2022 Document Reviewed: 04/27/2022 [employer] Patient Education 2022 [employer] 10/01/2023 23:32:39 Cellulitis, Adult, Rglh-hr-Dohx Cellulitis, Adult Cellulitis is a skin infection. The infected area is often warm, red, swollen, and sore. It occurs most often in the arms and lower legs. It is very important to get treated for this condition. What are the causes? This condition is caused by bacteria. The bacteria enter through a break in the skin, such as a cut, burn, insect bite, open sore, or crack. What increases the risk? This condition is more likely to occur in people who: Have a weak body defense system (immune system). Have open cuts, schmidt, bites, or scrapes on the skin. Are older than 60 years of age. Have a blood sugar problem (diabetes). Have a long-lasting (chronic) liver disease (cirrhosis) or kidney disease. Are very overweight (obese). Have a skin problem, such as: ?Itchy rash (eczema). ?Slow movement of blood in the veins (venous stasis). ?Fluid buildup below the skin (edema). Have been treated with high-energy rays (radiation). Use IV drugs. What are the signs or symptoms? Symptoms of this condition include: Skin that is: ?Red. ?Streaking. ?Spotting. ?Swollen. ?Sore or painful when you touch it. ?Warm. A fever. Chills. Blisters. How is this diagnosed? This condition is diagnosed based on: Medical history. Physical exam. Blood tests. Imaging tests. How is this treated? Treatment for this condition may include: Medicines to treat infections or allergies. Home care, such as: ?Rest. ?Placing cold or warm cloths (compresses) on the skin. Hospital care, if the condition is very bad. Follow these instructions at home: Medicines Take zxex-sxs-ttyyfbv and prescription medicines only as told by your doctor. If you were prescribed an antibiotic medicine, take it as told by your doctor. Do not stop taking it even if you start to feel better. General instructions Drink enough fluid to keep your pee (urine) pale yellow. Do not touch or rub the infected area. Raise (elevate) the infected area above the level of your heart while you are sitting or lying down. Place cold or warm cloths on the area as told by your doctor. Keep all follow-up visits as told by your doctor. This is important. Contact a doctor if: You have a fever. You do not start to get better after 1 2 days of treatment. Your bone or joint under the infected area starts to hurt after the skin has healed. Your infection comes back. This can happen in the same area or another area. You have a swollen bump in the area. You have new symptoms. You feel ill and have muscle aches and pains. Get help right away if: Your symptoms get worse. You feel very sleepy. You throw up (vomit) or have watery poop (diarrhea) for a long time. You see red streaks coming from the area. Your red area gets larger. Your red area turns dark in color. These symptoms may represent a serious problem that is an emergency. Do not wait to see if the symptoms will go away. Get medical help right away. Call your local emergency services (911 in the [place] Do not drive yourself to the hospital. Summary Cellulitis is a skin infection. The area is often warm, red, swollen, and sore. This condition is treated with medicines, rest, and cold and warm cloths. Take all medicines only as told by your doctor. Tell your doctor if symptoms do not start to get better after 1 2 days of treatment. This information is not intended to replace advice given to you by your health care provider. Make sure you discuss any questions you have with your health care provider. Document Revised: 12/17/2021 Document Reviewed: 12/17/2021 [employer] Patient Education 2022 [employer]. 10/01/2023 23:32:39 Arthritis, Nkms-sy-Cctv Arthritis Arthritis means joint pain. It can also mean joint disease. A joint is a place where bones come together. There are more than 100 types of arthritis. What are the causes? Wear and tear of a joint. This is the most common cause. Too much of a chemical called uric acid in the blood, which leads to pain in the joint (gout). Pain and swelling (inflammation) in a joint. Infection of a joint. Injuries in the joint. A reaction to medicines (allergy). In some cases, the cause may not be known. What are the signs or symptoms? Pain in a joint when moving. Redness at a joint. Swelling at a joint. Stiffness at a joint. Warmth coming from the joint. A fever. A feeling of being sick. How is this treated? This condition may be treated with: Treating the cause, if it is known. Rest. Raising (elevating) the joint. Putting cold or hot packs on the joint. Medicines to treat symptoms and reduce pain and swelling. Shots (injections) of medicines, such as cortisone, into the joint. You may also be told to make changes in your life, such as doing exercises and losing weight. Follow these instructions at home: Medicines Take aymw-uky-wyuuydw and prescription medicines only as told by your doctor. Do not take aspirin for pain if your doctor says that you may have gout. Activity Rest your joint if your doctor tells you to. Avoid activities that make the pain worse. Exercise your joint regularly as told by your doctor. Try doing exercises like: ?Swimming. ?Water aerobics. ?Biking. ?Walking. Managing pain, stiffness, and swelling If told, put ice on the affected area. To do this: ?Put ice in a plastic bag. ?Place a towel between your skin and the bag. ?Leave the ice on for 20 minutes, 2 3 times a day. ?Take off the ice if your skin turns bright red. This is very important. If you cannot feel pain, heat, or cold, you have a greater risk of damage to the area. If your joint is swollen, raise (elevate) it above the level of your heart if told by your doctor. If your joint feels stiff in the morning, try taking a warm shower. If told, put heat on the affected area. Do this as often as told by your doctor. Use the heat source that your doctor recommends, such as a moist heat pack or a heating pad. If you have diabetes, do not apply heat without asking your doctor. To apply heat: ?Place a towel between your skin and the heat source. ?Leave the heat on for 20 30 minutes. ?Take off the heat if your skin turns bright red. This is very important. If you cannot feel pain, heat, or cold, you have a greater risk of getting burned. General instructions Maintain a healthy weight. Follow instructions from your doctor for weight control. Do not smoke or use any products that contain nicotine or tobacco. If you need help quitting, ask your doctor. Keep all follow-up visits. Where to find more information [employer] of [employer]: www.niams.nih.gov Contact a doctor if: The pain gets worse. You have a fever. Get help right away if: You have very bad pain in your joint. You have swelling in your joint. Your joint is red. Many joints become painful and swollen. You have very bad back pain. Your leg is very weak. Summary Arthritis means joint pain. It can also mean joint disease. A joint is a place where bones come together. The most common cause of this condition is wear and tear of a joint. Symptoms of this condition include redness, swelling, or stiffness of the joint. This condition is treated with rest, raising the joint, medicines, and putting cold or hot packs on the joint. Follow your doctor's instructions about medicines, activity, exercises, and other home care treatments. This information is not intended to replace advice given to you by your health care provider. Make sure you discuss any questions you have with your health care provider. Document Revised: 12/15/2021 Document Reviewed: 12/15/2021 [employer] Patient Education 2022 [employer]. Follow Up Care 10/01/2023 20:55:48 With:Mark Hernandez Address: [address] [place] [id number] Business (1) When:10/04/2023 With:[facility] Address: [address] [place] [phone] Business (1) When:10/04/2023 Comments:Take the antibiotics as prescribed to you have completed the course. You can use the pain medication as prescribed as needed for pain. Please follow-up with orthopedics and your primary care doctor for further evaluation management. Please return to ED for any new or worsening symptoms. [facility] 10-01-2023 Note ED Patient Education Note Infectious Disease Cellulitis, Adult Cellulitis is a skin infection. The infected area is often warm, red, swollen, and sore. It occurs most often in the arms and lower legs. It is very important to get treated for this condition. What are the causes? This condition is caused by bacteria. The bacteria enter through a break in the skin, such as a cut, burn, insect bite, open sore, or crack. What increases the risk? This condition is more likely to occur in people who: ? Have a weak body defense system (immune system). ? Have open cuts, schmidt, bites, or scrapes on the skin. ? Are older than 60 years of age. ? Have a blood sugar problem (diabetes). ? Have a long-lasting (chronic) liver disease (cirrhosis) or kidney disease. ? Are very overweight (obese). ? Have a skin problem, such as: ? Itchy rash (eczema). ? Slow movement of blood in the veins (venous stasis). ? Fluid buildup below the skin (edema). ? Have been treated with high-energy rays (radiation). ? Use IV drugs. What are the signs or symptoms? Symptoms of this condition include: ? Skin that is: ? Red. ? Streaking. ? Spotting. ? Swollen. ? Sore or painful when you touch it. ? Warm. ? A fever. ? Chills. ? Blisters. How is this diagnosed? This condition is diagnosed based on: ? Medical history. ? Physical exam. ? Blood tests. ? Imaging tests. How is this treated? Treatment for this condition may include: ? Medicines to treat infections or allergies. ? Home care, such as: ? Rest. ? Placing cold or warm cloths (compresses) on the skin. ? Hospital care, if the condition is very bad. Follow these instructions at home: Medicines ? Take odfh-xac-tjmaojm and prescription medicines only as told by your doctor. ? If you were prescribed an antibiotic medicine, take it as told by your doctor. Do not stop taking it even if you start to feel better. General instructions ? Drink enough fluid to keep your pee (urine) pale yellow. ? Do not touch or rub the infected area. ? Raise (elevate) the infected area above the level of your heart while you are sitting or lying down. ? Place cold or warm cloths on the area as told by your doctor. ? Keep all follow-up visits as told by your doctor. This is important. Contact a doctor if: ? You have a fever. ? You do not start to get better after 1?2 days of treatment. ? Your bone or joint under the infected area starts to hurt after the skin has healed. ? Your infection comes back. This can happen in the same area or another area. ? You have a swollen bump in the area. ? You have new symptoms. ? You feel ill and have muscle aches and pains. Get help right away if: ? Your symptoms get worse. ? You feel very sleepy. ? You throw up (vomit) or have watery poop (diarrhea) for a long time. ? You see red streaks coming from the area. ? Your red area gets larger. ? Your red area turns dark in color. These symptoms may represent a serious problem that is an emergency. Do not wait to see if the symptoms will go away. Get medical help right away. Call your local emergency services (911 in the [place] Do not drive yourself to the hospital. Summary ? Cellulitis is a skin infection. The area is often warm, red, swollen, and sore. ? This condition is treated with medicines, rest, and cold and warm cloths. ? Take all medicines only as told by your doctor. ? Tell your doctor if symptoms do not start to get better after 1?2 days of treatment. This information is not intended to replace advice given to you by your health care provider. Make sure you discuss any questions you have with your health care provider. Document Revised: 12/17/2021 Document Reviewed: 12/17/2021 [employer] Patient Education ? 2022 [employer]. Orthopedics Shoulder Range of Motion Exercises Shoulder range of motion (ROM) exercises are done to keep the shoulder moving freely or to increase movement. They are recommended for people who have shoulder pain or stiffness or who are recovering from a shoulder surgery. Ask your health care provider which exercises are safe for you. Do exercises exactly as told by your health care provider and adjust them as directed. It is normal to feel mild stretching, pulling, tightness, or discomfort as you do these exercises. Stop right away if you feel sudden pain or your pain gets worse. Do not begin these exercises until told by your health care provider. Phase 1 exercise When you are able, do this exercise 1?2 times a day for 30?60 seconds in each direction, or as directed by your health care provider. Pendulum exercise To do this exercise while sittin. Sit in a chair or at the edge of your bed with your feet flat on the floor. 2. Let your affected arm hang down in front of you over the edge of th (more content not included)... 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, unspecified shoulder) Orders: acetaminophen-hydrocodone, 1 tab(s), Tab, Oral, Once, Stop date 10/01/23 22:18:00 EDT, STAT, Start date 10/01/23 22:18:00 EDT acetaminophen-hydrocodone, 1 EA, Tab, Oral, Once, Stop date 10/01/23 23:14:00 EDT, STAT, Start date 10/01/23 23:14:00 EDT doxycycline, 100 mg = 1 cap(s), Cap, Oral, Once, Stop date 10/01/23 23:14:00 EDT, STAT, Start date 10/01/23 23:14:00 EDT, 10/01/23 23:14:00 EDT doxycycline, 100 mg = 1 tab(s), Oral, q12hr, X 10 day(s), # 20 tab(s), Refills(s) 0, Pharmacy: [facility], 152, cm, 10/01/23 21:34:00 EDT, Height/Length Dosing, 155, kg, 10/01/23 21:34:00 EDT, Weight Dosing naproxen, 500 mg = 1 tab(s), Oral, BID, PRN for pain, # 20 tab(s), Refills(s) 0, Pharmacy: [facility], 152, cm, 10/01/23 21:34:00 EDT, Height/Length Dosing, 155, kg, 10/01/23 21:34:00 EDT, Weight Dosing Basic Metabolic Panel CBC w/ Auto Diff eGFR Hepatic Function Panel UA with Cult Rflx XR Shoulder Complete Left Diagnostic Tests Pending * UA with Cult Rflx 10/01/23 [facility]08-01-2022 Evaluation + Plan noteExtracted from: Title:Discharge Note Author:Mike WINSTON MD Date: 10/19/21 Discharge Diet(s): Regular ( 10/19/21 10:40:00) Prescriptions albuterol 0.083% Inh Madai 3 mL, 2.5 mg= 3 mL, Inhalation, QID, Still taking, not as prescribed: does not take as prescribed Check BMP in 3-5 days, 0, Not taking Home aspirin 81 mg oral tablet, 81 mg= 1 tab(s), Oral, Daily atorvastatin 40 mg Tab, 40 mg= 1 tab(s), Oral, Daily Calcium 600+D, Oral, Daily hydrochlorothiazide-lisinopril 25 mg-20 mg Tab, 1 tab(s), Oral, Daily loratadine 10 mg Tab, 10 mg= 1 tab(s), Oral, Daily, Not taking meloxicam 15 mg oral tablet, 15 mg= 1 tab(s), Not taking traMADOL 50 mg Tab, 50 mg= 1 tab(s), Oral, q12hr, PRN, Not taking With When Contact Information follow up with your optmetrist in the next week Additional Instructions: [facility] Within 5 to [address] [place] [phone] Business (1) Additional Instructions: Eliceo Collado DO, [facility] Within 2 to [address], [place] [address]- Additional Instructions: Extracted from: Title:Consult Note- Neurology Author:Nyasia López RN Date:10/19/21 She describes 1-2 hours of decreased visual acuity in general. She describes no loss of vision, curtaining, homonymous hemianopic changes, Pain with eye movements, color desaturation, or any other visual symptoms concerning for a neurologic cause. Her vision has been normal ever since. I do not suspect a cerebrovascular cause for the mildly blurred vision episode. She has lower extremity weakness bilaterally that she says is chronic and no worse than it was a day or a month ago. Some of that weakness might be due to body habitus and deconditioning. We could consider further workup of this as an outpatient in neurology clinic. No other recommendations at this time and she can be discharged from my standpoint. 1. TIA (transient ischemic attack) (G45.9: Transient cerebral ischemic attack, unspecified) 2. HTN (hypertension), benign (I10: Essential (primary) hypertension) 3. Hyperlipidemia, unspecified hyperlipidemia type (E78.5: Hyperlipidemia, unspecified) 4. Morbid obesity due to excess calories (E66.01: Morbid (severe) obesity due to excess calories) 5. Stage 3 chronic kidney disease due to benign hypertension (I12.9: Hypertensive chronic kidney disease with stage 1 through stage 4 chronic kidney disease, or unspecified chronic kidney disease) 6. Chronic kidney disease, stage 3 unspecified (N18.30: Chronic kidney disease, stage 3 unspecified) 7. Atrial fibrillation (I48.91: Unspecified atrial fibrillation) Extracted from: Title:ED Note Author:Milton Montague, Pina Palomino te:10/18/21 1. TIA (transient ischemic a ttack) (G45.9: Transient cerebral ischemic attack, unspecified) 2. HTN (hypertension), benign (I10: Essential (primary) hypertension) 3. Hyperlipidemia, unspecified hyperlipidemia type (E78.5: Hyperlipidemia, unspecified) 4. Morbid obesity due to excess calories (E66.01: Morbid (severe) obesity due to excess calories) 5. Stage 3 chronic kidney disease due to benign hypertension (I12.9: Hypertensive chronic kidney disease with stage 1 through stage 4 chronic kidney disease, or unspecified chronic kidney disease) 6. Chronic kidney disease, stage 3 unspecified (N18.30: Chronic kidney disease, stage 3 unspecified) 7. Atrial fibrillation (I48.91: Unspecified atrial fibrillation) Orders: Automated Diff Basic Metabolic Panel CBC w/ Auto Diff [place] Stroke Scale Communication Order Physician to Nursing Continuous Pulse Oximetry CT Head or Brain w/o Contrast CVA/TIA Inclusion/Exclusion Criteria ECG 12 Lead Adult ED Cardiac Monitoring ED Physician consult Hospitalist for continued care eGFR HgbA1c Lipid Panel Oxygen Therapy PT & PTT Routine Capillary Glucose POC Saline Lock Insert Troponin 0 Hr. UA With Cult Reflex Vital Signs XR Chest Single View Extracted from: Title:Admission H & P Author:Dilip Grande MD Date:10/18/21 1. TIA (transient ischemic a ttack) (G45.9: Transient cerebral ischemic attack, unspecified) - Admit to observation as this is not likely requiring more than 2 midnights -MRI MRA of the head, echo with bubble study, carotid ultrasound -Aspirin, statins -Neurology consult -N.p.o. until passing swallow study -PT OT -Speech if needed 2. HTN (hypertension), benign (I10: Essential (primary) hypertension) - Please resume home blood pressure medication of lisinopril -Questionable history of hydrochlorothiazide as that is on her last medication reconciliation from the hospital however external Rx only shows lisinopril 3. Hyperlipidemia, unspecified hyperlipidemia type (E78.5: Hyperlipidemia, unspecified) - Continue on a statin 4. Morbid obesity due to excess calories (E66.01: Morbid (severe) obesity due to excess calories) - Diet and exercise advised 5. Stage 3 chronic kidney disease due to benign hypertension (I12.9: Hypertensive chronic kidney disease with stage 1 through stage 4 chronic kidney disease, or unspecified chronic kidney disease) - We will monitor 6. Chronic kidney disease, stage 3 unspecified (N18.30: Chronic kidney disease, stage 3 unspecified) - We will monitor Orders: enoxaparin, 40 mg = 0.4 mL, Injection, SubCutaneous, Daily, Routine, Start date 10/19/21 9:00:00 EDT, 10/18/21 14:38:00 EDT hydrALAZINE, 10 mg = 0.5 mL, Injection, IV Push, q6hr PRN Other (see comment), Routine, Start date 10/18/21 14:38:00 EDT, 10/18/21 14:38:00 EDT ondansetron, 4 mg = 2 mL, Injection, IV Push, q6hr PRN Nausea, Routine, Start date 10/18/21 14:38:00 EDT, 10/18/21 14:38:00 EDT promethazine, 12.5 mg = 0.5 mL, Injection, IV Push, q6hr PRN Nausea, Routine, Start date 10/18/21 14:38:00 EDT, 10/18/21 14:38:00 EDT Sodium Chloride 0.9% intravenous solution 1,000 mL, 1,000 mL, IV, 75 mL/hr, Routine, Start date 10/18/21 14:38:00 EDT, 13.3 hour(s), Total volume (mL): 1,000, 157.1 kg, 2.58, m2 Ambulate with Assistance Below the Knee Intermittent Pneumatic Compression Device Cardiac Monitoring Communication Order Communication Order Physician to Nursing Consult to Neurology Dysphagia Screen Echo w/ Saline Bubbles Evaluate Need For Continued Telemetry Incentive Spirometry Intake and Output MRA Head w/o Contrast MRI Brain w/o Contrast Neurological Assessment Neurological Assessment Notify Provider Vital Signs Notify Provider Vital Signs Occupational Therapy Evaluate Patient, Develop a Plan of Care and Implement Plan Oxygen Protocol Physical Therapy Evaluate Patient, Develop a Plan of Care and Implement Plan Place in Status Precautions Precautions Precautions Pulse Oximetry Resuscitation Status - Full Saline Lock Convert From IV Speech Language Pathology Swallow Eval; Evaluate Pt, Develop a Plan of Care & Implement Plan Stroke Education Stroke Quality Measures US Carotid Duplex Bilateral Vital Signs Weight - DVT prophylaxis with Lovenox [facility]07-31-2022 Hospital Discharge instructions Follow Up Care 10/18/2021 12:38:43 With:follow up with your optmetrist in the next week Address:Unknown When: Unknown With:[facility] Address: [address] [place] [phone] Business (1) When:5 to 7 days With:Eliceo Collado DO, [facility] Address: [address], [place] [address]- When:2 to 4 weeks [facility] information available [facility] Work Phone: Hospital course Narrative No data available for this section [facility] No data available for this section [facility] Summary Purpose Family History No Family History Records Found No data available for this section No Family History Records FoundNo Family History Records FoundNo Family History Records FoundNo Family History Records FoundNo Family History Records FoundNo Family History Records FoundNo Family History Records FoundNo Family History Records FoundNo Family History Records FoundNo Family History Records FoundNo Family History Records FoundNo Family History Records FoundNo Family History Records FoundNo Family History Records FoundNo Family History Records FoundNo Family History Records FoundNo Family History Records FoundNo Family History Records FoundNo Family History Records FoundNo Family History Records FoundNo Family History Records FoundNo Family History Records FoundNo Family History Records FoundNo Family History Records FoundNo Family History Records FoundNo Family History Records FoundNo Family History Records FoundNo Family History Records FoundNo Family History Records FoundNo Family History Records FoundNo Family History Records FoundNo Family History Records FoundNo Family History Records FoundNo Family History Records Found Advance Directives Advance Directive Response Recorded Date/ Time Advance Directives No August 05 7:03am Chief Complaint and Reason for Visit Chief Complaint Morbid obesity Morbi d obesity;Hypercholesteremia Chief Complaint N64.4 Additional Source Comments Care Team (unrecognized sect ion and content) Team Status: Inactive Member Role Status Dates Charles Mercado DO Attending Provider Active Team Status: Active Member Role Status Dates Services [facility] Primary Care Provider Active Team Status: Inactive Member Role Status Dates Services [facility] Primary Care Provider Active Start: November 22, 2023 End: November 22, 2023 Charles Mercado DO Attending Provider Active Start : November 22, 2023 End: November 22, 2023 Amalia Mancera DO RES Referring Provider Active Start: November 22, 2023 End: November 22, 2023 INFORMATION SOURCE (unrecogn ized section and content) DATE CREATED AUTHOR 03/19/2022 [facility] DATE CREATED AUTHOR AUTHOR'S ORGANIZ ATION 10/06/2023 [facility] DATE CREATED AUTHOR AUTHOR'S ORGANIZ ATION 11/05/2023 [facility] DATE CREATED AUTHOR AUTHOR'S ORGANIZ ATION 11/29/2023 [facility] DATE CREATED AUTHOR AUTHOR'S ORGANIZ ATION 02/28/2024 [facility] DATE CREATED AUTHOR AUTHOR'S ORGANIZ ATION 02/29/2024 [facility] DATE CREATED AUTHOR AUTHOR'S ORGANIZ ATION 03/01/2024 [facility] DATE CREATED AUTHOR AUTHOR'S ORGANIZ ATION 2024 [facility] DATE CREATED AUTHOR AUTHOR'S ORGANIZ ATION 03/03/2024 [facility] DATE CREATED AUTHOR AUTHOR'S ORGANIZ ATION 03/04/2024 [facility] DATE CREATED AUTHOR AUTHOR'S ORGANIZ ATION 03/06/2024 [facility] Goals (unrecognized section and content) Goals may be documented in a n alternate section FOR RECORDS PERTAINING TO PATIENTS WHO ARE OR HAVE BEEN ENROLLED IN A CHEMICAL DEPENDENCY/SUBSTANCEABUSE PROGRAM, SOME INFORMATION MAY BE OMITTED. This clinical summary was aggregated from multiple sources. Caution should be exercised in using it in the provision of clinical care. This summary normalizes information from multiple sources, and as a consequence, information in this document may materially change the coding, format and clinical context of patient data. In addition, data may be omitted in some cases. CLINICAL DECISIONS SHOULD BE BASED ON THE PRIMARY CLINICAL RECORDS. [facility]. provides no warranty or guarantee of the accuracy or completeness of information in this document.
[2024-03-15 15:32] LABS: Hematocrit 34.7 % (36.0-48.0); Hemoglobin 10.5 g/dL (12.0-16.0); Mean Corpuscular HGB Conc 30.3 g/dL (29.9-35.2); Mean Corpuscular Volume 95.9 fL (81.0-99.0); Mean Platelet Volume 11.3 fL (9.5-13.5); Platelet Count 185 10^3/uL (150-450); Red Blood Count 3.62 10^6/uL (4.20-5.40); Red Cell Distribution Width 15.8 % (11.0-15.0); White Blood Count 2.6 10^3/uL (4.0-11.0)
[2024-03-15 15:49] LABS: Anion Gap 8.7; BUN Creatinine Ratio 40.8; Calcium 8.5 mg/dL (8.5-10.1); Chloride 111 mmol/L (98-107); Estimated GFR (African America 39 (>=60 mL/min/1.73m^2); Estimated GFR (Non-African Ame 32 (>=60 mL/min/1.73m^2); Glucose 101 mg/dL (74-106); Potassium 4.7 mmol/L (3.5-5.1); Sodium 143 mmol/L (136-145)
[2024-03-15 16:08] LABS: Band Neutrophils Absolute 0.1 10^3/uL (0.0-0.3); Lymphocytes Absolute Manual 0.52 10^3/uL (1.20-3.80); Segmented Neut Absolute Manual 1.66 10^3/uL (1.4-6.5)
== END 2024-03-15 15:18 | disposition home or self-care (01) ==
LOC: LAB 15:17
PROVIDERS: PCP Family Medicine; Visit Provider Family Medicine
DX: N17.9 Acute kidney failure, unspecified (principal); J96.00 Acute respiratory failure, unspecified whether with hypoxia or hypercapnia
CPT/HCPCS: 36415; 80048; 83880; 85007; 85027

== ENCOUNTER 2025-01-15 13:37 | Outpatient (OUT) | payer MEDICAID, SELFPAY ==
--- OUTSIDE RECORDS SUMMARY | 2023-11-17 05:00 | XMS_ITS ---
Author Organization [facility] Address [address] [facility] [place] [address] Care Team Providers Care Soldering Machine Operator Name Role Phone Rafael Orourke Primary Care Provider [phone] Amalia Lee Unavailable [phone] REASON FOR VISIT 2 week f/u leg swelling Encounters Encounter Location Date Provider Diagnosis [facility] [address] [place] [address] 11/17/2023 Amalia Lee Plan Of Treatment No Information Progress Notes * AN, TINA SharmaDOB:[birth year] (79 yo F)Acc No.[id number]:11/17/2023 Progress Notes Patient: TINA HUITRON Provider:?MICKEY SUTHERLANDOB:1945 ???Age:78 Y???Sex:FemaleDate:11/17/2023hone:[phone]:[facility]Pcp:Rafael Orourke Subjective: * Chief Complaints: * 2 week f/u leg swelling Billing Information: * Procedure Codes: * Electronic signature of Amalia Lee DO on 01/15/2025 at 01:46 PM EDTSign off status: Pending * Appointment Provider: Kandi DICKINSON DO Date: 0 11/17/2023 Generated for Printing/Faxing/eTransmitting on:?01/15/2025 01:46 PM EDT
--- OUTSIDE RECORDS SUMMARY | 2024-03-07 11:30 | XMS_ITS ---
Author Organization [facility] Address [address] [place] [address] [place] [address] Care Team Providers Care Painter Set Name Role Phone Shorty Fraser Primary Care Provider UnavailSimon Fraser Unavailable [phone] Encounters Encounter Location Date Provider Diagnosis [address] [address] 03/07/2024 Simon Laguna Plan Of Treatment No Information Progress Notes * Jaclyn ANDOB:[birth year] (79 yo F)Acc No.[id number]:03/07/2024 Patient:?Jaclyn AN :?ASTER EnglishMDOB:1945???Age:79 Y???Sex: FemaleDate:03/07/2024hone:[phone]:[place], [id number]:Shorty Fraser Subjective: * Chief Complaints: * * Medical History: Objective: * Vitals: Assessment: Plan: * Treatment: * Images: * Electronic signature of Simon Laguna DPM on 01/15/2025 at 01:45 PM EDTSign off status: Pending * Provider: Darcy Laguna DPM Date: 1 05/08/2023 Generated for Printing/Faxing/eTransmitting on:?01/15/2025 01:45 PM EDT
--- OUTSIDE RECORDS SUMMARY | 2024-06-13 10:45 | XMS_ITS ---
Author Organization [facility] Address [address] [place] [address] [place] [address] Care Team Providers Care Bus Steward Name Role Phone Shorty Fraser Primary Care Provider UnavailSimon Fraser Unavailable [phone] Encounters Encounter Location Date Provider Diagnosis [address] [address] 06/13/2024 Simon Laguna Plan Of Treatment No Information Progress Notes * Jaclyn ANDOB:[birth year] (79 yo F)Acc No.[id number]:06/13/2024 Patient:?Jaclyn AN :?ASTER EnglishMDOB:1945???Age:79 Y???Sex: FemaleDate:06/13/2024Phone:[phone]:[address] [place], [place]Nxn:Shorty Fraser Subjective: * Chief Complaints: * * Medical History: Objective: * Vitals: Assessment: Plan: * Treatment: * Images: * Electronic signature of Simon Laguna DPM on 01/15/2025 at 01:45 PM EDTSign off status: Pending * Provider: Darcy Laguna DPM Date: 0 06/13/2024 Generated for Printing/Faxing/eTransmitting on:?01/15/2025 01:45 PM EDT
--- OUTSIDE RECORDS SUMMARY | 2024-09-05 10:15 | XMS_ITS ---
Author Organization [facility] Address [address] [place] [address] [place] [address] Care Team Providers Care Trench Trimmer Fine Name Role Phone Shorty Fraser Primary Care Provider UnavailSimon Fraser Unavailable [phone] Encounters Encounter Location Date Provider Diagnosis [address] [address] 09/05/2024 Simon Laguna Plan Of Treatment No Information Progress Notes * Jaclyn ANDOB:[birth year] (79 yo F)Acc No.[id number]:09/05/2024 Patient:?Jaclyn AN :?ASTER EnglishMDOB:1945???Age:79 Y???Sex: FemaleDate:09/05/2024Phone:[phone]:One [place], [place]Byl:Shorty Fraser Subjective: * Chief Complaints: * * Medical History: Objective: * Vitals: Assessment: Plan: * Treatment: * Images: * Electronic signature of Simon Laguna DPM on 01/15/2025 at 01:46 PM EDTSign off status: Pending * Provider: Darcy Laguna DPM Date: 0 09/05/2024 Generated for Printing/Faxing/eTransmitting on:?01/15/2025 01:46 PM EDT
--- OUTSIDE RECORDS SUMMARY | 2024-12-12 10:15 | XMS_ITS ---
Author Organization [facility] Address [address] [place] [address] [place] [address] Care Team Providers Care Building Stonecutter Name Role Phone Shorty Fraser Primary Care Provider UnavailSimon Fraser Unavailable [phone] Encounters Encounter Location Date Provider Diagnosis [address] [address] 12/12/2024 Simon Laguna Plan Of Treatment No Information Progress Notes * Jaclyn ANDOB:[birth year] (79 yo F)Acc No.[id number]:12/12/2024 Patient:?Jaclyn AN :?ASTER EnglishMDOB:1945???Age:79 Y???Sex: FemaleDate:12/12/2024Phone:[phone]:One [place], [place]Nhw:Shorty Fraser Subjective: * Chief Complaints: * * Medical History: Objective: * Vitals: Assessment: Plan: * Treatment: * Images: * Electronic signature of Simon Laguna DPM on 01/15/2025 at 01:45 PM EDTSign off status: Pending * Provider: Darcy Laguna DPM Date: 0 12/12/2024 Generated for Printing/Faxing/eTransmitting on:?01/15/2025 01:45 PM EDT
--- OUTSIDE RECORDS SUMMARY | 2025-01-15 13:45 | XMS_ITS | Patient Health Record ---
Author Organization [facility] Address [address] [place] [address] [place] [address] Care Team Providers Care Table Games Dealer Name Role Phone BriaShorty fontenot Primary Care Provider Simon Leblanc Unavailable [phone] Reason For Referral No Information Encounters Encounter Location Date Provider Diagnosis [facility] [address] [place] [address] [facility]/07/2024 [facility] [place] [address]/[facility] [place] [address]/[facility] Plan Of Treatment No Information Insurance Providers Payer Name Payer Address Payer Phone Subscriber Number Group Number Insured Name Patient Relationship to Insured Coverage Start Date Coverage End Date [facility] [address] [place], [place] [id number] Laquita Horton - patient is the insuredMedicaid [place] Dpt of Job Fmly [address] [place], [place] [id number], LindaSelf - patient is the insured
--- OUTSIDE RECORDS SUMMARY | 2025-01-15 13:46 | XMS_ITS | Clinical Summary ---
Author Organization [facility] Address [address] [place] [address] Care Team Providers Care Certified Ophthalmic Technologist Name Role Phone Edwin Harmon Primary Care Provider [phone] Allergies Active AllergyReactionsCriticalityNoted DateCommentsAmpicillinAnaphylaxisHigh 07/12/2024 Medications MedicationSigDispense QuantityRefillsLast FilledStart DateEnd DateStatus albuterol (2.5 MG/3ML) 0.083% nebulizer solution 5Active ammonium lactate (Lac-Hydrin) 12 % lotion 5Active Eliquis 5 MG tablet 5Active atorvastatin (Lipitor) 40 MG tablet 5Active baclofen (Lioresal) 10 MG tablet 5Active ergocalciferol (Vitamin D2) 1.25 MG (57498 UT) capsule 5Active furosemide (Lasix) 20 MG tablet 5Active nystatin (Mycostatin) 564374 UNIT/GM powder 5Active polyvinyl alcohol-povidone PF (Refresh) 1.4-0.6 % ophthalmic solution every 6 (six) hours5Active Zoloft 50 MG tablet Take by mouth in the morning.5Active levothyroxine (Synthroid, Levoxyl) 25 MCG tablet 5Active acetaminophen (Tylenol) 325 MG tablet Take 325 mg by mouth every 6 (six) hours if needed for mild painActive aspirin 81 MG EC tablet Take 81 mg by mouth DailyActive calcium carbonate (Tums) 500 MG chewable tablet Chew 500 mg DailyActive Active Problems ProblemNoted DateDiagnosed DateChronic kidney disease, stage 3b10/03/2024 Overview (10/03/2024): Documented by [facility] Abnormal finding on breast wejirbz9607/12/2024Unspecified lump in unspecified qrhant9906/19/2024Other specified hearing loss, ccmjizpri11/14/2025ute follicular conjunctivitis, left eye04/19/2024Depression, iqhrfcajxfp71/19/2024 Cognitive communication ulotzum8803/01/2024ysphagia, oral phase03/01/2024 Difficulty in walking, not elsewhere egnujbmzoj25/11/2024Muscle weakness (generalized)02/29/2024Other seasonal allergic jsmimtpi69/11/2024Essential (primary) zipzaoqbgmqi41/10/2024Morbid (severe) obesity due to excess calories 02/28/2024ure hypercholesterolemia, opeteinehbj35/10/2024Unspecified asthma, ibjogsumdoyzw19/10/2024rimary osteoarthritis, unspecified owntdafz66/10/2024 Vitamin D deficiency, hknfsszcyqk34/10/2024cute kidney failure with tubular htytjdni63/10/2024cute kidney failure, crmmcapoycb72/10/2024Enterocolitis due to Clostridium difficile, not specified as yuevrkutk79/10/2024Gastro-esophageal reflux disease without eraskrhhbsa88/10/3365Dmclctfahptv68/10/2024 Hypothyroidism, evzvqcjhccg99/10/2024Other disorders of plasma-protein metabolism, not elsewhere drpeemzfqp81/10/2024roteinuria, ywlztevonfy80/10/2024 Unspecified atrial ikjlatakprta90/10/2024Urinary tract infection, site not qxkfwoqsi94/10/2024Venous insufficiency (chronic) (peripheral)02/28/2024Weakness 02/28/2024 Family History Medical HistoryRelationNameCommentsBreast cancerMotherRelationNameStatusComments Brother4 brothersFatherDeceasedMotherDeceasedSister1 sister Social History Tobacco UseTypesPacks/DayYears UsedDateSmoking Tobacco: NeverSmokeless Tobacco: Never Tobacco Cessation:Counseling Given: Not Answered Alcohol UseStandard Drinks/WeekCommentsNever0 (1 standard drink = 0.6 oz pure alcohol)CommentsUnknownSex and Gender InformationValueDate RecordedSex Assigned at BirthNot on fileLegal BniZlaimc98/ 7:35 PM EDTGender Identity Not on fileSexual OrientationNot on file Last Filed Vital Signs Vital SignReadingTime TakenCommentsBlood Diddqmxr352/7404 2:25 PM EDT Pulse--Temperature--Respiratory Rate--Oxygen Saturation--Inhaled Oxygen Concentration--Pukmbs816 kg (317 lb)07/12/2024 2:25 PM WULYvavwu378.4 cm (5') 07/12/2024 2:25 PM EDTBody Mass Index61.9107/12/2024 2:25 PM EDT Plan of Treatment Not on file Insurance Care Teams Team MemberRelationshipSpecialtyStart DateEnd Date Edwin Harmon DO [address] [facility] [facility] [place] [id number] PCP - GeneralFamily Medicine07/11/24
--- OUTSIDE RECORDS SUMMARY | 2025-01-15 13:47 | XMS_ITS | Continuity of Care Document ---
Author Organization [facility] Address [address] [place] [address] Phone [phone] Care Team Providers Care Repeat Chief Name Role Phone Shorty Fraser MD Care Team Information Audio Visual Production Specialist + [phone] Problems Active Problems Provider Date Pure hypercholesterolemia Onset: 02/27/2024 Results Test Acquired Date Facility Test Result H/L Range N ote .Renal Panel-lab jignesh/quest 11/23/2024 [facility] [phone].Albumin3.0.Calcium8.7.Carbon Rarckum59.Susqtiwt254.Phosphorus3.5 .Potassium3.8.Wihqpf958.BUN35.GFR Ipqenketz34.Creatinine-LC0.7.Renal Panel-lab jignesh/quest10/30/[address] [address] [phone].Albumin2.9.Calcium8.9.Carbon Ylmsbke89.Byszrjhx812.Phosphorus3.8 .Potassium3.9.Djtqjl455.BUN41.GFR Rstgmdwmr44Ajso03.Creatinine-LC0.8.Ua 10/30/[address] [address] [phone] AppearanceCLEARUa BacteriaFEWUa BilirubinNEGATIVEUa Blood NEGATIVEUa ColorLT. YELLOWUa Epithelial Cells QLFEWUa GlucoseNORMALUa Ketones NEGATIVEUa LeukoNEGATIVEUa NitriteNEGATIVEUa PH Test Strip6.0Ua ProteinNEGATIVE Ua RBC3-5Ua SourceCLEAN CATCHUa Specific Gravity1.022Ua UrobilinogenNEGATIVEUa WBC0-2.Urine Protein/Creat. Orpavi9310/30/20[address] [address] [phone].Urine Protein Random5.Urine Creatinine Ofauiz76.4.Urine Prot/Creat Ratio62.2.Renal Panel-lab jignesh/quest05/01/2024[facility] [phone].Albumin1.7.Calcium7.5.Carbon Knbezxc00.Npqmocvg911.Phosphorus4.0 .Potassium4.0.Gursdc060.BUN20.GFR Rcdbxqpnj89.Creatinine-LC0.7.Urine Protein/Creat. Qtxioq3005/01/2024[facility] [phone].Urine Protein Vbbibr339.Urine Creatinine Ypyqhi39.7.Urine Prot/Creat Oifsy1071.3 Encounters Type Date Location Provider Dx Diagnosis Office Visit 11/22/2024 9:00a [facility] Yadira Gomez NP N17.9 Acute kidney failure, unspecified R77.0 Abnormality of album in Office Visit 05/04/2024 11:20a [facility] Francisco milton MD N17.9 Acute kidney failure, unspecified Assessments Date Code Description Provider 11/22/2024 N17.9 Acute kidney failure, unspec ified Yadira Gomez NP 11/22/2024 R77.0 Abnormality of albumin Edwina Gomez NP 05/04/2024 N17.9 Acute kidney failure, unspec ified Francisco Patel MD 02/28/2024 N17.9 Acute kidney failure, unspec ified CARRIE Degroot 02/28/2024 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
--- OUTSIDE RECORDS SUMMARY | 2025-01-15 13:47 | XMS_ITS | Patient Health Record ---
Author Organization [facility] Address [address] [facility] [place] [place] [address] Care Team Providers Care Business Sales Consultant Name Role Phone Rafael Orourke Primary Care Provider Amalia Lee Unavailable [phone] Allergies Allergen (clinical drug ingredient) Drug/Non Drug Allergy documented on EMR Reaction Allergy Type Onset Date Status dust/mold/cut grass (uncoded)runny noseAllergyActiveampicillinAmpicillin shortness of breathDrug AllergyActive Reason For Referral No Information Medications Medication SIG (Take, Route, Frequency, Duration) Notes Start Date End Date Status Aspirin Adult Low Strength 8 1 MG Tablet Delayed Release 1 tablet Orally Once a day; Duration: 30 ActiveAcetaminophen 8 Hour 650 MG Tablet Extended Release2 tablets as needed Orally every 8 hrsActiveLisinopril 40 MG Tablet1 tablet Orally Once a day; Duration: 90 daysActiveCalcium 600 600 MG Tablet1 tablet daily Orally once a day ActiveAtorvastatin Calcium 40 MG Tablet1 tablet Orally Once a day; Duration: 90 daysActiveNebulizer/Tubing/Mouthpiece - Kitas directed orally as needed (prn); Duration: 30 daysActiveAlbuterol 0.083% Aerosol Solution3 ml Inhalation Q6H; Duration: 90 daysActiveVitamin D3 20 MCG (800 UNIT) Tablet1 tablet Orally Once a dayActiveAlbuterol Sulfate HFA 108 (90 Base) MCG/ACT Aerosol Solution2 puffs as needed Inhalation every 6 hrs; Duration: 30 daysActive Immunizations Vaccine Route Administration Date Status Comme nts Influenza-Adult IM Intramuscular 02/03/2018 Administered Social History Tobacco Use: Social History Observation Description Date Details (start date - stop date) Never Smoker NA - NA Social History Social DeterminantsSocial InfoQuestionAnswerNotesPRAPAREWhat is your current housing situation?I have housingAre you worried about losing your housing?NoWhat is the highest level of school that you have finished?Less than a high school degreeWhat is your current work situation?Otherwise unemployed but not seeking work (ex. student, retired, disabled, unpaid primary medicare nurse)In the past year, have you or any family members you live with been unable to get any of the following when it was really needed? Check all that applyClothing,Medicine or any health care (medical, dental, mental health or vision)Has lack of transportation kept you from medical appointments, meetings, work or from getting things needed for daily living?NoHow often do you see or talk to people that you care about and feel close to? (For example: talkingto friends on the phone, visiting friends or family, going to sikh or club meetings)More than 5 times a weekHow stressed are you? Stress is when someone feels tense, nervous, anxious, or cant sleep at night because their mind is troubledSomewhatIn the past year have you spent more than 2 nights in a row in a fci, penitentiary, residential center, orjuvenile correctional facility?NoAre you a refugee?NoWhat country are you from?[place] StatesDo you feel physically and emotionally safe where you currently live?YesIn the past year, have you been afraid of your partner or ex-partner?NoPRAPARE Score:8GeneralSocial InfoQuestionAnswerNotes Transition of Care:ER/UC/hospital since last office visit?Yes, report on file 10[facility]01/23 [facility] last office visit?NoSubstance abuse/mental health issues of patient/familyPatient -DeniesAbility to understand healthcare/treatmentPatient:GoodSexual Hx:Had sex in the last 12 months (vaginal, oral, or anal)?NoHave you ever had an STD?NoSocial/Support Concerns: Patient:NoBehaviors affecting healthPoor/Risky Behaviors:Denies-Communication Barrier:Language Barrier?:NoDrug/Alcohol:Social InfoQuestionAnswerNotesAUDIT-C (Standard)Did you have a drink containing alcohol in the past year?NoPoints0 InterpretationNegativeTobacco Use:Social InfoQuestionAnswerNotesTobacco Control (Standard)Tobacco use:Nonsmoker Problems Problem Type SNOMED Code ICD Code Onset Dates Problem Status W/U Status Risk Notes Problem Vitamin D deficiency (32121712) Vitamin D deficiency (E55.9) ActiveconfirmedProblemHypertension (56676670)Hypertension (I10)Activeconfirmed ProblemMorbid obesity (209525760)Morbid obesity (E66.01)ActiveconfirmedProblem Arthritis (9801422)Arthritis (M19.90)ActiveconfirmedProblemhypercholesterolemia (disorder) (09004018)Hypercholesteremia (E78.00)ActiveconfirmedProblemHearing loss (48987810)Hearing difficulty of both ears (H91.93)ActiveconfirmedProblem Persistent asthma (6633801507397)Persistent asthma (J45.909)Activeconfirmed Plan Of Treatment Pending Test Test Name Order Date US breast LT limited 11/03/2023 Insurance Providers Payer Name Payer Address Payer Phone Subscriber Number Group Number Insured Name Patient Relationship to Insured Coverage Start Date Coverage End Date [facility] [address] [place] [address] [id number] Effie AN - patient is the [id number] MEDICAID SEC TO [facility] [address] [place] [id number], LINDASelf - patient is the [id number] 2017[address] [place] [id number], LINDASelf - patient is the insured 2018 Medical (General) History Medical History History ICD Code hypertension asthmamorbid obesityosteoporosisSurgical History Surgery Date(Month/Year) gallbladder removal c-sectionHospitalization History Reason Date(Month/Year) lung infection
--- NOTE | 2025-01-15 14:00 | CA_ITS ---
Patient Name: TINA AN MR#: [id number] : 1945 Exam Date: 01/15/2025 Ordering Doctor: DR JELLY HERNANDEZ M.D. ECHOCARDIOGRAM REPORT PROCEDURE: CA ECHO DOPPLER COMPLETE INDICATIONS: Murmur, chest pain, h/o rheumatic fever COMPARISON: None. DESCRIPTION: COMPLETE ECHOCARDIOGRAM Real-time transthoracic echocardiography with 2D, M-mode, spectral and color flow Doppler performed. QUALITY: Technical quality was good. LEFT VENTRICLE: Normal chamber size. Thickened septal wall. Normal systolic function. Estimated left ventricular ejection fraction is 60% LV EF: Normal left ventricular ejection fraction, (>55%). DIASTOLIC: Not adequately assessed due to heart rhythm. ATRIAL SEPTUM: LEFT ATRIUM: Moderate dilatation. RIGHT ATRIUM: Moderate dilatation. RIGHT VENTRICLE: Mild dilatation. Normal right ventricular systolic function. TRICUSPID VALVE: Normal mobility and thickness. No stenosis with mild regurgitation. Doppler studies reveal mildly (35-45) elevated right sided pressures. RVSP 36 mmHg MITRAL VALVE: Normal mobility and thickness. No evidence of mitral valve stenosis. Mild mitral annular calcification. No mitral regurgitation. AORTIC VALVE: Normal trileaflet appearance. Mildly calcified aortic valve. Mildly diminished mobility. Doppler velocity suggest moderate aortic valve stenosis. DVI 0.26, KIRAN 1.2 cm2, mean 16 mmHg, Vmax 2.62 m/s. Mild aortic regurgitation. AORTIC ROOT: Normal diameter and appearance, measuring 3.4 cm. Aortic arch is normal in size. PULMONIC VALVE: Not well visualized. No regurgitation. PERICARDIUM: No evidence of pericardial effusion. IVC: Not well visualized. PLEURA: CONCLUSION: 1. Normal left ventricular size and systolic function. Estimated LVEF is 60%. 2. Mildly dilated right ventricle with normal systolic function. 3. Moderate biatrial dilatation. 4. Moderate aortic valve stenosis with mild regurgitation. 5. Mild tricuspid regurgitation. 6. Mildly elevated right-sided pressures. Adult Echocardiography Procedure Report Left Ventricle LVEDD (3.7 - 5.6 cm): 5.30 cm LVESD (2.2 - 4.0 cm): 3.35 cm LVIVS thickness (0.6 - 1.2 cm): 1.21 cm LVPW thickness (0.5 - 1.0 cm): 0.91 cm LVOT Max Gradient: 1.87 mm[Hg], 1.87 mm[Hg] LVOT Area (cm2): 0.68 m/s Peak Velocity (LVOT): 0.68 m/s, 0.68 m/s Mean Velocity (LVOT): 0.45 m/s LVOT Diameter 2.37 cm Left Ventricular Ejection Fraction: 60 % Left Atrium LA Volume Index (2D A2C): 35.06 ml/m2 Left Atrium Systolic Dimension: 4.85 cm Mitral Valve Mitral Valve E-Wave Peak Velocity: 1.06 m/s Right Ventricle Aorta AO Root Diam: 3.41 cm Aortic Valve AoV Area (Peak Lei): 1.23 cm2, 1.10 cm2, 1.15 cm2 AoV Area (VTI): 1.28 cm2, 1.46 cm2, 1.15 cm2 Peak Velocity(Antegrade Flow): 2.75 m/s, 2.62 m/s, 1.99 m/s Peak Gradient(Antegrade Flow): 30.16 mm[Hg], 27.56 mm[Hg], 15.91 mm[Hg] Mean Velocity(Antegrade Flow): 1.56 m/s, 1.89 m/s, 1.63 m/s Mean Gradient(Antegrade Flow): 12.26 mm[Hg], 16.02 mm[Hg], 11.37 mm[Hg] Velocity Time Integral: 54.24 cm, 62.19 cm, 60.33 cm Tricuspid Valve Peak Velocity (Regurgitant Flow): 2.63 m/s, 2.40 m/s Pulmonic Valve Mean Gradient: 3.13 mm[Hg], 2.51 mm[Hg] Mean Velocity: 0.82 m/s, 0.73 m/s Peak Velocity: 1.19 m/s Peak Gradient: 6.15 mm[Hg], 5.12 mm[Hg] Right Atrium Right Atrium Systolic Pressure: 81.09 ml, 81.09 ml Dictated by: Isac Marx M.D. on 01/15/2025 at 18:09 Approved by: Isac Marx M.D. on 01/15/2025 at 18:17
--- OUTSIDE RECORDS SUMMARY | 2025-01-15 14:00 | XMS_ITS | CCD ---
Author Organization [facility] Care Team Providers Care Financial Reserve Clerk Name Role Phone [facility] Primary Care Physician PROVIDER, UNKNOWN Attending Unavailable PROVIDER, UNKNOWN Admitting Unavailable DO Charles Mercado Attending Provider [phone] [facility] Unavail able DO Muriel Le A Attending Unavailable [facility] Unavail able DO Muriel Le A Attending Unavailable [facility] Primary Care Provider DO Charles Mercado Attending Provider DO Amalia Mancera Referring Provider [phone] [facility] Unavail able MD Rodriguez Zambrano Consulting Unavailable OJUKWU, Mbanefo Admitting Unavailable OJUKWU, Mbanefo Attending Unavailable Betancor, Rodriguez Consulting Unavailable Betancor, Rodriguez Consulting Unavailable Kenya, Rodriguez Consulting Unavailable MD Stefanie Abreu Consulting Unavailable Lizbethna, Stefanie Consulting Unavailable Brady, Stefanie Consulting Unavailable MD Tom Abreuapna Consulting Unavailable [facility] Unavail able OJUKWU, Mbanefo Attending Unavailable OJUKWU, Mbanefo Admitting Unavailable Kamadana, Stefanie Consulting Unavailable Kamadana, Stefnaie Consulting Unavailable Kamadana, Stefanie Consulting Unavailable Soren Moore Attending Unavailable Unavailable [facility] Provider Shorty Fraser MD Attending Provider [phone] Edwin Harmon DO Primary Care Provider Jimmie Glover DO Attending Provider [phone] Shorty Fraser Admitting Unavailable Shorty Fraser Attending Unavailable [facility] Primary Care Unavaila ble Mast, Edwin Primary Care Unavailable Jimmie Glover Admitting Unavailable Jimmie Glover Attending Unavailable Amalia Mancera Referring Unavailable [facility] Primary Care Unavaila Charles Chirinos Admitting Unavailable Charles Mercado Attending Unavailable JIMMIE GLOVER Attending Unavailable CLARY FAY Attending Unavailable Allergies Allergy ClassificationReported Allergen(s)Allergy TypeDate of OnsetReaction(s) Facility (13 sources)Ampicillin; Translations: [ampicillin]Drug Fuypewe84-56-6433 Anaphylaxis (disorder), [facility] Medications Current Medications MedicationDrug Class(es)DatesSig (Normalized)Sig (Original)acetaminophen 325 mg oral tablet (3 sources)take 1 tablet by mouth every six hours as needed for pain acetaminophen (Tylenol) 325 MG tablet Take 325 mg by mouth every 6 (six) hours if needed for mild pain Activealbuterol 0.83 mg/ml inhalation solution (5 sources)beta2-Adrenergic AgonistStart: 48-87-6587xaymudttt (2.5 MG/3ML) 0.083% nebulizer solution 06/19/2024 ActiveStart: 50-50-3021sgabixyfd 0.083% Inh Madai 3 mL 2.5 mg, 3 mL, Inhalation, QID, 60 EA, Refill(s) 0, ICD 10 code- J45.90 1 Cancel previous order of albuterol, [facility] Start Date: 12/27/16 Status: Orderedapixaban 5 mg oral tablet (3 sources)Factor Xa InhibitorStart: 61-23-5900Jmzsapa 5 MG tablet 07/11/2024 Activeaspirin 81 mg oral tablet (5 sources)Platelet Aggregation Inhibitor, Nonsteroidal Anti-inflammatory Drug Start: 14-47-2352voog 1 tablet by mouth once dailyaspirin 81 mg oral tablet 81 mg = 1 tab(s), Oral, Daily, # 90 tab(s), Refills(s) 0 Start Date: 12/26/16 Status: Orderedtake 1 tablet by mouth once dailyaspirin 81 MG EC tablet Take 81 mg by mouth Daily Activeatorvastatin 40 mg oral tablet (5 sources)HMG-CoA Reductase InhibitorStart: 90-36-0230plvysdpkkfwb (Lipitor) 40 MG tablet 06/24/2024 ActiveStart: 02-24-0947iova 1 tablet by mouth once daily atorvastatin 40 mg Tab 40 mg = 1 tab(s), Oral, Daily, # 90 tab(s), Refills(s) 0 Start Date: 07/29/14Status: Orderedbaclofen 10 mg oral tablet (3 sources)gamma-Aminobutyric Acid-ergic AgonistStart: 68-36-9994urcewpzo (Lioresal) 10 MG tablet 06/23/2024 ActiveCalcium (2 sources)Phosphate Binder, CalciumStart: 68-41-2576Sivcgkx 600+D Oral, Daily Start Date: 01/06/10 Status: Orderedcalcium carbonate 500 mg chewable tablet (3 sources)calcium carbonate (Tums) 500 MG chewable tablet Chew 500 mg Daily ActiveCheck BMP in 3-5 days (2 sources)Start: 32-55-3262Aetyv BMP in 3-5 days Check BMP in 3-5 days, Fax results to primary care physician. Diagnoses : Acute kidney injury, Print Requisition, Supply Start Date: 12/27/16 Status: Ordereddoxycycline hyclate 100 mg oral tablet (1 source)Tetracycline-class DrugStart: 10-01-2023 End: 62-38-9474zmex 1 tablet by mouth every twelve hoursdoxycycline hyclate 100 mg Tab 100 mg = 1 tab(s), Oral, q12hr, X 10 day(s), # 20 tab(s), Refills(s)0, Pharmacy: [facility], 152, cm, 10/01/23 21:34:00 EDT, Height/Length Dosing, 155, kg, 10/01/23 21:34:00 EDT, Weight Dosing Start Date: 10/01/23 Stop Date: 10/11/23 Status: Orderedergocalciferol 1.25 mg oral capsule (3 sources)Provitamin D2 CompoundStart: 73-31-8636axlajipwxhyvpq (Vitamin D2) 1.25 MG (82962 UT) capsule 06/24/2024 Activefurosemide 20 mg oral tablet (3 sources)Loop DiureticStart: 34-81-7266sogggeeeqr (Lasix) 20 MG tablet 06/25/2024 ActivehydroCHLOROthiazide 25 mg / lisinopril 20 mg oral tablet (2 sources)Thiazide Diuretic, Angiotensin Converting Enzyme InhibitorStart: 95-80-7801tnqq 1 tablet by mouth once dailyhydrochlorothiazide-lisinopril 25 mg- 20 mg Tab 1 tab(s), Oral, Daily Start Date: 01/06/10 Status: Orderedammonium lactate 120 mg/ml topical lotion (3 sources)Start: 31-42-6989nlhusutu lactate (Lac-Hydrin) 12 % lotion 06/10/2024 Activelevothyroxine sodium 0.025 mg oral tablet (3 sources)l-ThyroxineStart: 60-36-1364ekppgelodlqcg (Synthroid, Levoxyl) 25 MCG tablet 07/08/2024 Activeloratadine 10 mg oral tablet (2 sources)Start: 17-54-5609gdno 1 tablet by mouth once dailyloratadine 10 mg Tab 10 mg = 1 tab(s), Oral, Daily Start Date: 01/06/10 Status: Orderedmeloxicam 15 mg oral tablet (2 sources)Nonsteroidal Anti-inflammatory DrugStart: 84-38-0447nnmyxkmry 15 mg oral tablet 15 mg = 1 tab(s), Refills(s) 0 Start Date: 07/29/14 Status: Ordered naproxen 500 mg oral tablet (1 source)Nonsteroidal Anti-inflammatory DrugStart: 70-61-2925aduj 1 tablet by mouth twice daily as needed for painNaprosyn 500 mg Tab 500 mg = 1 tab(s), Oral, BID, PRN for pain, # 20 tab(s), Refills(s) 0, Pharmacy: [facility], 152, cm, 10/01/23 21:34:00 EDT, Height/Length Dosing, 155, kg, 10/01/23 21:34:00 EDT, Weight Dosing Start Date: 10/01/23 Status: Orderednystatin 100 unt/mg topical powder (3 sources)Polyene AntifungalStart: 00-11-5647qfpveuia (Mycostatin) 662054 UNIT/GM powder 06/16/2024 Activepolyvinyl alcohol 0.014 ml/ml / povidone 6 mg/ml ophthalmic solution (3 sources)Start: 88-35-8941dbcosddte alcohol-povidone PF (Refresh) 1.4-0.6 % ophthalmic solution every 6 (six) hours 05/15/2024 Activesertraline 50 mg oral tablet (3 sources)Serotonin Reuptake InhibitorStart: 49-06-0383Xxemdl 50 MG tablet Take by mouth in the morning. 05/10/2024 ActivetraMADol hydrochloride 50 mg oral tablet (2 sources)Opioid AgonistStart: 91-22-6066umlo 1 tablet by mouth every twelve hours as needed for paintraMADOL 50 mg Tab 50 mg = 1 tab(s), Oral, q12hr, PRN for pain, # 30 tab(s), Refills(s) 0 Start Date: 07/29/14 Status: Ordered Problems Active Problems Problem ClassificationProblemDateDocumented DateEpisodic/ChronicAcute and unspecified renal failure (7 sources)Acute kidney failure, unspecified; Translations: [N17.9]Onset: 80-27-7855YwyfxttaMhvtqp (4 sources)Asthma; Translations: [Uncomplicated asthma]Onset: 02-28-2024 96-86-6635MtljdjwGpruiyvoq infection; unspecified site (2 sources)Rheumatic -30-5813SnoucjmmEmzhkffgj and vision defects (1 source)Visual disturbance; Translations: [Unspecified visual disturbance] Onset: 79-08-1575RpyizwpzUdpqtzd dysrhythmias (1 source)Unspecified atrial fibrillation; Translations: [Unspecified atrial fibrillation]Onset: 44-36-0792QmhfgayMhlbrgm kidney disease (2 sources)Chronic kidney disease stage 3B ; Translations: [Chronic kidney disease, stage 3b]Onset: 327706-61-2248AfkgtjuBpdydntys of lipid metabolism (4 sources)Hypercholesterolemia; Translations: [Pure hypercholesterolemia]Onset: 319551-45-8239PshdfonXrudrylpjl disorders (2 sources)Gastroesophageal reflux qlgsuow20-08-0078LphjvbyNbrzlulxu hypertension (4 sources)Hypertensive disorder; Translations: [Essential hypertension]Onset: 177879-65-9066TrnkozxIfuclom and fatigue (14 sources)Weakness; Translations: [Other malaise]Onset: 78-50-8420GazwgknhKlwx disorders (2 sources)Depressive disorder; Translations: [Depression, unspecified]Onset: 253503-44-4203YamncwxBtjlqomishz deficiencies (2 sources)Vitamin D deficiency; Translations: [Vitamin D deficiency, unspecified]Onset: 347874-90-9529VqebaohBmfzguvmtkejvr (3 sources)Localized, primary osteoarthritis of the shoulder region; Translations: [Primary osteoarthritis, unspecified shoulder]Onset: 10-01-2023 ChronicOther ear and sense organ disorders (2 sources)Hearing finding; Translations: [Other specified hearing loss, bilateral]Onset: 087487-66-4597SxccddbCbgld ear and sense organ disorders (1 source)Sensorineural hearing loss, bilateral; Translations: [Sensorineural hearing loss, bilateral]56-19-2651ZewiituUrmfy nutritional; endocrine; and metabolic disorders (2 sources)Jvaqzfx79-56-5741UcleudqKqpri nutritional; endocrine; and metabolic disorders (7 sources)Other disorders of plasma-protein metabolism, not elsewhere classified; Translations: [E88.09]Onset: 77-79-4243PimftgbMmmnk nutritional; endocrine; and metabolic disorders (2 sources)Obesity caused by energy imbalance; Translations: [Morbid (severe) obesity due to excess calories]Onset: 996658-36-4323FuxcongWzyvm screening for suspected conditions (not mental disorders or infectious disease) (4 sources)Abnormal findings on diagnostic imaging of breast; Translations: [Other abnormal and inconclusive findings on diagnostic imaging of breast]Onset: 569936-67-7808PwbbmbeoIjhmz skin disorders (1 source)Disorder of the skin and subcutaneous tissue, unspecified; Translations: [Disorder of the skin and subcutaneous tissue, unspecified]Onset: 55-41-6849KadteoigSsuf and subcutaneous tissue infections (1 source)Cellulitis of abdominal wall ; Translations: [Cellulitis of abdominal wall]Onset: 24-38-8497QvsrcayeWgasvdtevskr (1 source)GALL BLADDER( Confirmed )82-74-2847Tybieysuivai (1 source)GALL IDWYOSD20-65-0690Mdtgkobi veins of lower extremity (7 sources)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; Translations: [I83.009]Onset: 22-93-6331Vqncjlam Past or Other Problems Problem ClassificationProblemDateDocumented DateEpisodic/ChronicInflammation; infection of eye (except that caused by tuberculosis or sexually transmitteddisease) (2 sources)Acute follicular conjunctivitis of left eye; Translations: [Acute follicular conjunctivitis, left eye]Onset: 374901-35-2623Umxssgrc Nonmalignant breast conditions (4 sources)Other signs and symptoms in breast; Translations: [Mastodynia]Onset: 075744-03-6069Oljkoxdr Results Test NameValueInterpretationReference RangeFacilityAuditory function testson 28-37-7162Bdxsmz to profound sensorineural hearing loss. Pt will do best if she is facing whomever is speaking to her. She also will hear better if you get her attention before communicating with her. Pt has [facility] Dual Complete and needs to see a [facility] Hearing provider for hearing aids [facility] 07-12-2024L Specimen: [id number] Received: 07/13/24 Status: SWETHA Stratton Num: [id number] Spec Type: Surgical Subm Dr: Jimmie Glover, Tissues: A Skin-Other than Cyst, tag, debridement or plastic repair (RT BREAST) Procedures: ALEKS, James/Jeyson L4 Age/ Patient Sex Location Account Attending Physician Jaclyn An 79/F OR [id number] Jimmie Glover, DO SPEC NUM: [id number] RECD: 07/13/24-1019 STATUS: SWETHA STRATTON NUM: [id number] OFELIA: 07/12/[address] [facility] [address]: Jimmie Glover DO ENTERED: 07/13/24-1021 BLAINE SPIVEY: ZEFERINO TYPE: Surgical DEPT: S ORDERED: HE, Gross/Micro L4 ORDERED: HE, Gross/Micro L4 Pathological Diagnosis Right skin lesion-breast, biopsy: Skin with dermal perivascular chronic inflammation including few eosinophils. No evidence of malignancy is identified. See microscopic description. Clinical Information Right skin lesion-breast Gross Description Part A is received in formalin labeled with the patients name, date of , and punch biopsy right breast is a house-jernigan, finely granular, 0.3 cm in diameter by 0.2 cm in depth punch biopsy of skin. The specimen is inked black, and submitted intact in a single cassette. Fixation Time: Time specimen extracted: 1520 Time specimen placed in formalin: 1520 Cold ischemic time: Less than 1 minute Total fixation time: 29 hours and 30 minutes (1, ns, W38-2827 A) AILIN Specimen: [id number] Received: 07/13/24 Status: SWETHA Stratton Num: [id number] Spec Type: Surgical Subm Dr: Jimmie Glover DO Tissues: A Skin-Other than Cyst, tag, debridement or plastic repair (RT BREAST) Procedures: James FINK/Jeyson Smith Patient: Jaclyn An [id number] (Continued) Specimen: [id number] Received: 07/13/24 (Continued) Signed (signature on file) Orly Alas MD 07/16/24 1430 Specimen: [id number] Received: 07/13/24 Status: SWETHA Stratton Num: [id number] Spec Type: Surgical Subm Dr: Jimmie Glover, Tissues: A Skin-Other than Cyst, tag, debridement or plastic repair (RT BREAST) Procedures: James FINK/Jeyson L4 Patient: Jaclyn An Zachary [id number] (Continued) Specimen: [id number] Received: 07/13/24 (Continued) Microscopic Description Specimen consists of a portion of skin with dermal perivascular chronic inflammatory infiltrate, composed predominantly of eosinophils. No evidence of malignancy is identified. Differential diagnoses include allergic dermatitis, drug induced dermatitis, contact dermatitis, among others. CPT Codes 54361 Specimen: [id number] Received: 07/13/24 Status: SWETHA Stratton Num: [id number] Spec Type: Surgical Subm Dr: Jimmie Glover DO Tissues: A Skin-Other than Cyst, tag, debridement or plastic repair (RT BREAST) Procedures: James FINK/Jeyson L4 Patient: Jaclyn An [id number] (Continued) Signed (signature on file) Shreyas Alas MD 07/16/[address] [place] [address] Physician Group diagnostic mammo BI w/[facility]on 52-94-0931HS diagnostic mammo BI w/[facility] [address] Ultrasound Report Signed Patient: Jaclyn An MR#: [id number] : 1945 Acct:[id number] Age/Sex: 79 / F ADM Date: 07/03/24 Loc: [place] Room: Type: [facility] Attending Dr: Shorty Fraser MD Ordering Provider: Shorty Fraser MD Date of Service: 07/03/24 MM/MM diagnostic mammo BI w/CAD: LESIONS ([id number]) US/US breast BI limited: LESIONS ON BREAST Copies to: Shorty Fraser MD CLINICAL DATA: Skin changes right breast with seeping. Follow-up possible fat necrosis left breast Bilateral DIAGNOSTIC MAMMOGRAM - WITH TOMOSYNTHESIS AND CAD , bilateralLIMITED BREAST ULTRASOUND COMPARISON:Left breast ultrasound 11/22/2023 Tomosynthesis imaging was obtained using low-dose digital technique. This examination was reviewed with the aid of CAD. Additional ultrasound imaging was also obtained. Mammogram: The breasts are composed of scattered fibroglandular densities. No suspicious abnormality is seen involving the left breast. The right breast demonstrates increased density involving the upper outer quadrants of the right breast with associated skin thickening. No definite mass. No architectural distortion. Benign-appearing calcifications are seen within both breasts. 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 Ultrasound: Imaging of the right axilla demonstrated a benign-appearing lymph nodes. No sinister-appearing lymph node is seen to suggest metastatic disease. 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 Skin biopsy is recommended. The suspicious area of fat necrosis involving the left breast is not appreciated on today's ultrasound. No definitive mammographic or ultrasound evidence of malignancy is seen within the left breast. RESULT CODE: 4c Suspicious Abnormality - Biopsy Moderate Suspicion DENSITY CODE: 2 (approximately 25-50% glandular) There are scattered areas of fibroglandular density. FOLLOW UP: BIO The false-negative rate of mammography is approximately 10-percent. Management of a palpable abnormality must be based on clinical grounds. Impression dictated by: Justo Devlin Jr., D.O.07/03/2024 2:48 PM Dictation Location: [facility] Tech: Vonda Kauffman; Alexus Aguirre Transcribed By: GABRIEL 07/03/24 1448 Dictated By: Justo Devlin Jr, DO 07/03/24 1443 Signed By: 07/03/24 1448[facility] GroupSH[facility] BASIC METABOLIC PANELon 09-24-8535Djwzy gap [Moles/Vol]8.7 mmol/LNOMS HealthcareCalcium [Mass/Vol]8.5 mg/dL8.5 - 10.1 mg/dLNOFL HealthcareChloride [Moles/Vol]111 mmol/LHigh98 - 107 mmol/LNOMS HealthcareCO2 [Moles/Vol]28 mmol/L21.0 - 32.0 mmol/LNOMS Healthcare Creatinine [Mass/Vol]1.57 mg/dLHigh0.55 - 1.02 mg/dLNOFL HealthcareGFR/1.73 sq M.predicted CKD-EPI (S/P/Bld) [Vol rate/Area]39Low>=60 mL/min/1.73m 2NOMS HealthcareGlucose [Mass/Vol]101 mg/dL74 - 106 mg/dLNOFL HealthcareInterpretation and review of laboratory resultsAbnormalLOGAN REGIONAL HOSPITAL HealthcarePotassium [Moles/Vol]4.7 mmol/L3.5 - 5.1 mmol/LNOMS HealthcareSodium [Moles/Vol]143 mmol/L136 - 145 mmol/LNOMS HealthcareTBH EGFR-NON AF [id number]>=60 mL/min/1.73m 2NOMS HealthcareUrea nitrogen [Mass/Vol]64 mg/dLHigh7.0 - 18.0 mg/dLNOMissouri Rehabilitation Center Urea nitrogen/Creatinine [Mass ratio]40.8 mg/mgNOMissouri Rehabilitation CenterALL CBC WITH AUTO DIFFon 06-26-3678Ulyiritbvyy distribution width (RBC) [Ratio]15.8 %High11.0 - 15.0 %NOM HealthcareHematocrit (Bld) [Volume fraction]34.7 %Low36.0 - 48.0 % NOM HealthcareHemoglobin (Bld) [Mass/Vol]10.5 g/dLLow12.0 - 16.0 g/dLLOGAN REGIONAL [facility]OSPITAL HealthcareInterpretation and review of laboratory resultsAbnormalProgress [facility] MCH (RBC) [Entitic mass]29 pg26.7 - 34.0 pgNOMissouri Rehabilitation CenterMCHC (RBC) [Mass/Vol] 30.3 g/dL29.9 - 35.2 g/dLNOMissouri Rehabilitation CenterMCV (RBC) [Entitic vol]95.9 fL81.0 - 99.0 fLNOMS HealthcarePlatelet mean volume (Bld) [Entitic vol]11.3 fL9.5 - 13.5 fLNOMS HealthcareTBH [id number] HealthcareTBH RBC3.62LowNOMS HealthcareTBH WBC 2.6LowNOMS HealthcareCLINISYNCNOMS HealthcareALL PRO BNPon 09-15-9426IQ PRO B TYPE NATRIURETIC [id number] pg/mLNINF - 1800.0 pg/mLNOMS HealthcareNo Panel Informationon 09-18-0533NVFZETHUUNC HEALTH BLUE RID[facility] - [facility] DROP OFF CLINISYNCNOMS HealthcareALL BASIC METABOLIC PANELon 75-22-3953Wdula gap [Moles/Vol]18.1 mmol/LNOMS HealthcareCalcium [Mass/Vol]8.8 mg/dL8.5 - 10.1 mg/dL NOMS HealthcareChloride [Moles/Vol]108 mmol/LHigh98 - 107 mmol/LNOMS Healthcare CO2 [Moles/Vol]22.6 mmol/L21.0 - 32.0 mmol/LNOMS HealthcareCreatinine [Mass/Vol] 1.74 mg/dLHigh0.55 - 1.02 mg/dLNOFL HealthcareGFR/1.73 sq M.predicted CKD-EPI (S/P/Bld) [Vol rate/Area]34Low>=60 mL/min/1.73m 2NOMS HealthcareGlucose [Mass/Vol]97 mg/dL74 - 106 mg/dLNOFL HealthcareInterpretation and review of laboratory resultsAbnormalNOFL HealthcarePotassium [Moles/Vol]5.7 mmol/LHigh3.5 - 5.1 mmol/LNOMS HealthcareSodium [Moles/Vol]143 mmol/L136 - 145 mmol/LNOMS HealthcareTBH EGFR-NON AF MQJFHUSP64Wvs>=60 mL/min/1.73m 2NOMS HealthcareUrea nitrogen [Mass/Vol]84 mg/dLCritically high7.0 - 18.0 mg/dLNOFL HealthcareComment on above:RESULTS CALLED TO JENNIFER MASCORRO RN at 1120Urea nitrogen/Creatinine [Mass ratio]48.3 mg/mgNOTransylvania [facility] Hospital DROP OFF CLINISYNCNOMS HealthcareALL CBC WITH AUTO DIFFon 01-22-3479JMOJGCMUL ABSOLUTE LPAA1IOOE HealthcareBasophils/100 WBC (Bld)0.4 %0.2 - 2.0 %N[facility] Eosinophils/100 WBC (Bld)5.7 %0.9 - 7.0 %Progress West HospitalErythrocyte distribution width (RBC) [Ratio]15.3 %High11.0 - 15.0 %[facility] West HospitalHematocrit (Bld) [Volume fraction]34.6 %Low36.0 - 48.0 %[facility] HospitalHemoglobin (Bld) [Mass/Vol]10.7 g/dLLow12.0 - 16.0 g/dLProgress West HospitalIMMATURE GRANULOCYTES ABS AUTO0.02NOMS HealthcareImmature granulocytes/100 WBC (Bld)0.4 %0.0 - 0.5 %[facility] HospitalInterpretation and review of laboratory resultsAbnormalNOMissouri Rehabilitation Center LYMPHOCYTES ABSOLUTE AUTO0.9LowNOMissouri Rehabilitation CenterLymphocytes/100 WBC (Bld)19.4 %Low 20.5 - 60.0 %[facility] CenterH (RBC) [Entitic mass]29.2 pg26.7 - 34.0 pgCameron Regional Medical CenterHC (RBC) [Mass/Vol]30.9 g/dL29.9 - 35.2 g/dLProgress West HospitalMCV (RBC) [Entitic vol]94.5 fL81.0 - 99.0 fLProgress West HospitalMONOCYTES ABSOLUTE AUTO0.4NOMS HealthcareMonocytes/100 WBC (Bld)8.3 %1.7 - 12.0 %[facility] HospitalNEUTROPHILS ABSOLUTE AUTO3.1NOMS HealthcareNeutrophils/100 WBC (Bld)65.8 %43.0 - 75.0 %[facility] HospitalPlatelet mean volume (Bld) [Entitic vol]10.5 fL9.5 - 13.5 fLNOMS [facility] HospitalTBH EO #0.3NOMS HealthcareTB [id number] [facility] HospitalTBH RBC3.66LowNOMS [facility] HospitalTB WBC4.7NOMS HealthcareCLINISYNCNOMS HealthcareImmunoglobs. A/E/G/M on 60-10-0204NnS QuantduplicateInvalid Interpretation CodeBc [facility] And HospitalComment on above:Performed By: #### [id number] #### [facility] Laboratory [address] [place] [id number] QuantduplicateInvalid Interpretation CodeCrystal Clinic Orthopedic CenterComment on above:Performed By: #### [id number] #### [facility] [address] [place], [place] [address]PeO QuantduplicateInvalid Interpretation CodeCrystal Clinic Orthopedic CenterComment on above:Performed By: #### [id number] #### [facility] [address] [place], [place] [address]FIA w/Reflex if POSon 84-40-8571Jplrvxg Ab Ql (S)Negative Invalid Interpretation CodeNegativeCrystal Clinic Orthopedic CenterComment on above: Result Comment: Performed at: Lab[address] [id number] PhD Meme BeckerPerformed By: #### [id number] #### [facility] [address] [place] [address]NXYTzp 95-43-4528Bpotktfeeb cytoplasmic Ab.classic IF (S) [Titer]<1:20Invalid Interpretation CodeNeg:<1:20[facility] Comment on above:Performed By: #### [id number] #### [facility] [address] [place], [place] [address]Mknrhsgbcf cytoplasmic Ab.perinuclear IF (S) [Titer]<1:20 Invalid Interpretation CodeNeg:<1:20[facility] Orthopedic CenterComment on above: Result Comment: The presence of positive fluorescence exhibiting P-ANCA or C-ANCA patterns alone is not specific for the diagnosis of Patricia's Granulomatosis (WG) or microscopic polyangiitis. Decisions about treatment should not be based solely on ANCA IFA results. The [employer] ANCA Group Consensus recommends follow up testing of positive sera with both NY-3 and MPO-ANCA enzyme immunoassays. As many as 5% serum samples are positive only by EIA. Ref. AM J Clin Pathol 1999;111:507-513.Performed By: #### [id number] #### [facility] [address] [place], [place] [address]Cmhzwqutvw cytoplasmic Ab.perinuclear.atypical IF (S) [Titer] <1:20Invalid Interpretation CodeNeg:<1:20[facility] Orthopedic CenterComment on above:Result Comment: The atypical pANCA pattern has been observed in a significant percentage of patients with ulcerative colitis, primary sclerosing cholangitis and autoimmune hepatitis. Performed at: [address] [id number] PhD Meme Moiseformed By: #### [id number] #### [facility] [address] [place], [place] [address]L0ck 23-19-0264Yxikjlbeey C3 [Mass/Vol]150 mg/dLInvalid Interpretation [id number] Clinic Orthopedic CenterComment on above:Result Comment: Performed at: [address] [id number] PhD Meme Moiseformed By: #### [id number] #### [facility] [address] [place], [place] [address]W7vq 76-89-6262Xlqrxdhdtd C4 [Mass/Vol]23 mg/dLInvalid Interpretation Byjg15-95VqrafiCrystal Clinic Orthopedic CenterComment on above:Result Comment: Performed at: [address] [id number] PhD Meme Moiseformed By: #### [id number] #### [facility] [address] [place], [place] [address]Bqyleoilhfyojp Serumon 97-52-9173FpA [Mass/Vol]467 mg/dLHigh 64-422C[facility] Orthopedic CenterComment on above:Performed By: #### [id number] #### [facility] [address] [place], [place] [address]GqW [Mass/Vol]892 mg/dLInvalid Interpretation Crjh954-7432 [facility] CenterComment on above:Performed By: #### [id number] #### [facility] [address] [place], [place] [address]GcR [Mass/Vol]132 mg/dLInvalid Interpretation Kqpt44-463GhfkttCrystal Clinic Orthopedic CenterComment on above:Result Comment: Performed at: [facility] [address], [place] [id number] PhD Meme Moiseformed By: #### [id number] #### [facility] [address] [place], [place] [address]Smofajp Fractions [Interp]CommentInvalid Interpretation Code [facility] CenterComment on above:Result Comment: No monoclonality detected.Performed By: #### [id number] #### [facility] [address] [place], [place] [address]Njetfjvrdlj. A/E/G/Mon 17-14-0297GgD Mq8973 International_Unit/mLHigh6-495[facility] Orthopedic CenterComment on above:Result Comment: Performed at: [facility] [id number] MD Mario Shawformed By: #### [id number] #### [facility] [address] [place], [place] [address]VMMqh 40-00-8027Tinnr gap [Moles/Vol]7 mmol/LNormal6-16[facility] Orthopedic CenterComment on above:Performed By: #### [id number] #### [facility] [address] [place], [place] [address]Yftztjw [Mass/Vol]7.7 mg/dLLow8.9-11.1[facility] And HospitalComment on above:Performed By: #### [id number] #### [facility] [address] [place], [place] [address]Xugbxlcy [Moles/Vol]106 mmol/HHhzgad092-351DtckaqCrystal Clinic Orthopedic CenterComment on above:Performed By: #### [id number] #### [facility] [address] [place], [place] [address]LJ4 [Moles/Vol]26 mmol/RXuceqk25-68CpdafcCrystal Clinic [facility] Center Comment on above:Performed By: #### [id number] #### [facility] [address] [place], [place] [address]Jerjryuxyt [Mass/Vol]1.5 mg/dLHigh0.5-1.3[facility] And HospitalComment on above:Performed By: #### [id number] #### [facility] [address] [place], [place] [address]Tphcgee [Mass/Vol]100 mg/yUOzoqll79-017JlwndiCrystal Clinic Orthopedic CenterComment on above:Performed By: #### [id number] #### [facility] [address] [place], [place] [address]Jbahldfie [Moles/Vol]4.7 mmol/LNormal3.5-5.3[facility] And HospitalComment on above:Performed By: #### [id number] #### [facility] [address] [place], [place] [address]Qldzmp [Moles/Vol]134 mmol/IBjs722-436UsdglmCrystal Clinic Orthopedic CenterComment on above:Performed By: #### [id number] #### [facility] [address] [place], [place] [address]Wdds nitrogen [Mass/Vol]67 mg/dLHigh5-21[facility] CenterComment on above:Performed By: #### [id number] #### [facility] [address] [place], [place] [address]Diia nitrogen/Creatinine [Mass ratio]45 No VqtyoVddo28-70YlvehkCrystal Clinic Orthopedic CenterComment on above:Performed By: #### [id number] #### [facility] [address] [place], [place] [address]Ibsfcwxby Note-Nursingon 28-53-8276Irqbvcqdg Note-Nursing Discharge Note-Nursing JACLYN AN :1945 Visit [...] FU with PCP on discharge- apt with intelligence operations on 04/11/24 at 0900- call office to confirm locationand provider New Follow Up Appointments after Discharge Follow Up with Francisco Patel MD, NEP When: 04/11/2024 09:00 AM EST Comments: *Call the office to confirm this is at [place] location Where: [address] [place] [address]- Follow Up with Primary Care Provider When: [...] Lvl: 4.7 mmol/L ( (more content not included)...[facility] SouthExtra Leeds 53-48-9232OI Tube CollectedYesInvalid Interpretation [facility] CenterComment on above:Performed By: #### [id number] #### [facility] [address] [place], [place] [address]Rqxbzizbonfcgg, Urineon 96-18-5734Wdcurawsdajlzv Immunofixation (U) [Interp]CommentInvalid Interpretation [facility] CenterComment on above:Result Comment: No monoclonality detected. Performed at: [facility] [id number] PhD Meme BeckerPerformed By: #### [id number] #### [facility] [address] [place], [place] [address]Obcwnqgvm Patient Summaryon 21-21-3953Bpujzbjmv Patient Summary Inpatient Patient Summary JACLYN AN [...] FU with PCP on discharge- apt with intelligence operations on 04/11/24 at 0900- call office to confirm locationand provider New Follow Up Appointments after Discharge Follow Up with Amanda DASH, MARIO Singh When: 04/11/2024 09:00 AM EST Comments: *Call the office to confirm this is at [facility] Where: [address] [place] [id number]- Follow Up with Primary Care Provider When: Within 3 to 5 days Where: Medications What How Much When Instructions Next Dose New apixaban (apixaban 5 mg oral tablet) 1 Tablets By Mouth 2 times a day 02/28 @ 0900pm New calcium carbonate (calcium carbonate 500 mg Chew Tab) 1 Tablets By Mouth 2 times a day 02/28 @ 00pm New Ensure 237 Milliliter By Mouth Twice a day (with meals) 02/28 @ 0500pm New ergocalciferol (ergocalciferol 50,000 intl units Cap) 1 Capsules By Mouth Tuesday & Friday 03/02 @ 00am New levothyroxine (levothyroxine 25 mcg (0.025 mg) Tab) 1 Tablets By Mouth Every day 02/28 @ 00am New vancomycin (vancomycin 125 mg Cap) 1 [...] Mouth Every day 02/28 @ 00am Unchanged calcium-vitamin D (Calcium 600+D) 1 Tablets [...] Low (02/28/24 06:01:00) BUN/Creat (more content not included)...[facility] Interdisciplinary Note - Case Manageron 54-16-1716Mphqyyvlqfvxxhsrz Note - Case ManagerInterdisciplinary Note - Panel Edge Sealer This SW met with patient today to let her know that [facility] had accepted and precert was obtained. She was made aware of the plan for d/c today. IMM discussed and patient voiced understanding of her rights. TC placed to patient's granddaughter and a message was left for her letting her know of the plan for d/c.[facility] SouthComment on above: Result Comment: Electronically Signed By: An MARTINEZW, Jailyn Sharma\.br\Date and Time Signed: 02/29/24 12:46 ESTeGFRon 86-20-5778hSPM59 mL/min/1.73 m2Low>=59 [facility] CenterComment on above:Performed By: #### [id number] #### [facility] [address] [place] [address]EDS w/ Auto Diffon 59-81-7590Ahgxajxln/100 WBC (Bld)0.5 %Normal 0.0-2.0[facility] CenterComment on above:Performed By: #### [id number] #### [facility] [address] [place], [place] [address]Kypcgeqpc/Leukocytes Auto (Bld) [Pure # fraction]0.0 E9/LNormal 0.0-0.2FOhioHealthComment on above:Performed By: #### [id number] #### [facility] [address] [place] [address]Apsexkpmurs (Bld) [#/Vol]0.5 E9/LNormal0.0-0.5FOhioHealthComment on above:Performed By: #### [id number] #### [facility] [address] [place], [place] [address]Cvutrjcfcbu/100 WBC (Bld)11.1 %High0.0-8.0[facility] CenterComment on above:Performed By: #### [id number] #### [facility] [address] [place] [address]Psmmhvoriyg distribution width (RBC) [Ratio]15.3 %High10.9-14.2 [facility] CenterComment on above:Performed By: #### [id number] #### [facility] [address] [place] [address]Ievallypcm (Bld) [Volume fraction]33.1 %Low34.0-46.0[facility] CenterComment on above:Performed By: #### [id number] #### [facility] [address] [place] [address]Qfvbklewlj (Bld) [Mass/Vol]11.2 g/dLLow12.0-16.0[facility] CenterComment on above:Performed By: #### [id number] #### [facility] [address] [place] [address]Wfknscnhdxa (Bld) [#/Vol]1.1 E9/LNormal1.0-4.0[facility] CenterComment on above:Performed By: #### [id number] #### [facility] [address] [place] [address]Uexyptcpmlk/100 WBC (Bld)25.9 %Immfvg70.0-50.0[facility] CenterComment on above:Performed By: #### [id number] #### [facility] [address] [place] [address]QAV (RBC) [Entitic mass]30.2 rpTsrewp28.0-34.0[facility] CenterComment on above:Performed By: #### [id number] #### [facility] [address] [place] [address]MFVS (RBC) [Mass/Vol]34.0 g/dCAapnoa28.4-36.0[facility] CenterComment on above:Performed By: #### [id number] #### [facility] [address] [place] [address]QSY (RBC) [Entitic vol]89.0 gGOxtaol88.0-100.0[facility] CenterComment on above:Performed By: #### [id number] #### [facility] [address] [place] [address]Qbcilbjeu (Bld) [#/Vol]0.4 E9/LNormal0.2-1.0[facility] CenterComment on above:Performed By: #### [id number] #### [facility] [address] [place] [address]Vshtadbknlt (Bld) [#/Vol]2.2 E9/LNormal2.0-7.5FOhioHealthComment on above:Performed By: #### [id number] #### [facility] [address] [place] [address]Xxaalswictx/100 WBC (Bld)53.5 %Zakohi91.0-75.0[facility] CenterComment on above:Performed By: #### [id number] #### [facility] [address] [place] [address]Ayrxceot mean volume (Bld) [Entitic vol]8.7 fLNormal6.4-10.8 [facility] CenterComment on above:Performed By: #### [id number] #### [facility] [address] [place] [address]Mhzkpbqhj (Bld) [#/Vol]191.0 E9/BJtjvia514.0-500.0[facility] CenterComment on above:Performed By: #### [id number] #### [facility] [address] [place] [address]AAX (Bld) [#/Vol]3.7 E12/LLow4.3-5.9[facility] Comment on above:Performed By: #### [id number] #### [facility] [address] [place] [address]ILX corrected for nucl RBC Auto (Bld) [#/Vol]4.2 E9/LNormal 4.0-11.0[facility] CenterComment on above:Performed By: #### [id number] #### [facility] [address] [place], [place] [address]CMEqi 18-84-2203Ierfwct [Mass/Vol]1.8 g/dLLow3.3-5.0[facility] CenterComment on above:Performed By: #### [id number] #### [facility] [address] [place] [address]Kaxvdbd/Globulin (S) [Mass conc ratio]0.6Low1.1-2.2FOhioHealthComment on above:Performed By: #### [id number] #### [facility] [address] [place] [address]PPC [Catalytic activity/Vol]102 Int._Unit/FScge85-00RfvnupCrystal Clinic Orthopedic CenterComment on above:Performed By: #### [id number] #### [facility] [address] [place] [address]RMM No additional P-5'-P [Catalytic activity/Vol]13 Int._Unit/L Normal6-46[facility] CenterComment on above:Performed By: #### [id number] #### [facility] [address] [place], [place] [address]Kugfa gap [Moles/Vol]6 mmol/LNormal6-16[facility] CenterComment on above:Performed By: #### [id number] #### [facility] [address] [place], [place] [address]UYO [Catalytic activity/Vol]19 Int._Unit/LNormal5-43[facility] CenterComment on above:Performed By: #### [id number] #### [facility] [address] [place], [place] [address]Ofyezhqvz [Mass/Vol]0.5 mg/dLNormal0.0-1.1FOhioHealthComment on above:Performed By: #### [id number] #### [facility] [address] [place], [place] [address]Scwtkpd [Mass/Vol]7.6 mg/dLLow8.9-11.1FOhioHealthComment on above:Performed By: #### [id number] #### [facility] [address] [place], [place] [address]Ovvsimhj [Moles/Vol]108 mmol/VXrygss666-889EqbrmnCrystal Clinic Orthopedic CenterComment on above:Performed By: #### [id number] #### [facility] [address] [place], [place] [address]AB0 [Moles/Vol]27 mmol/WBbnkqc48-22WntcmoCrystal Clinic [facility] Comment on above:Performed By: #### [id number] #### [facility] [address] [place], [place] [address]Djxabrdefy [Mass/Vol]1.4 mg/dLHigh0.5-1.3FOhioHealthComment on above:Performed By: #### [id number] #### [facility] [address] [place], [place] [address]Mxzikhjl (S) [Mass/Vol]2.8 g/dLNormal1.4-4.0[facility] CenterComment on above:Performed By: #### [id number] #### [facility] [address] [place], [place] [address]Ytwjuth [Mass/Vol]96 mg/jKVcnppz78-377IumypkCrystal Clinic Orthopedic CenterComment on above:Performed By: #### [id number] #### [facility] [address] [place], [place] [address]Zthtmcmhd [Moles/Vol]4.6 mmol/LNormal3.5-5.3FOhioHealthComment on above:Performed By: #### [id number] #### [facility] [address] [place], [place] [address]Ylwrckf [Mass/Vol]4.6 g/dLLow6.0-7.8[facility] Comment on above:Performed By: #### [id number] #### [facility] [address] [place], [place] [address]Ubovdo [Moles/Vol]136 mmol/RDsxnqv451-689HumdqjCrystal Clinic Orthopedic CenterComment on above:Performed By: #### [id number] #### [facility] [address] [place], [place] [address]Behl nitrogen [Mass/Vol]68 mg/dLHigh5-21[facility] CenterComment on above:Performed By: #### [id number] #### [facility] [address] [place], [place] [address]Crxx nitrogen/Creatinine [Mass ratio]49 No FbtifIbvy25-63BaiytbCrystal Clinic Orthopedic CenterComment on above:Performed By: #### [id number] #### [facility] [address] [place], [place] [address]Henkyggnfhthhkihq Note - Case Manageron 02-28-2024 Interdisciplinary Note - Case ManagerInterdisciplinary Note - Panel Edge Sealer This SW was informed by WAB this [...] pending. Per Hospitalist, patient somewhat confused at thistime so SW followed up with family about this change of SNF. SW called Miriam and explained the situation to her. She voiced understanding and was agreeable to [facility]. SW let her know to contact if patient's son and DIL wanted a different facility, however she didn't think they would since she resides in [place] and can visit patient there. [facility] has accepted patient, pending precert.[facility] Comment on above:Result Comment: Electronically Signed By: An MARTINEZJailyn Oakley\Date and Time Signed: 02/28/24 14:03 ESTeGFRon 77-63-7251eYZM78 mL/min/1.73 m2Low>=59[facility]opedic CenterComment on above:Performed By: #### [id number] #### [facility] [address] [place], [place] [address]XRTex 41-14-4064Gzzvw gap [Moles/Vol]7 mmol/LNormal6-16[facility] CenterComment on above:Performed By: #### [id number] #### [facility] [address] [place], [place] [address]Byrmxwc [Mass/Vol]7.6 mg/dLLow8.9-11.1FOhioHealthComment on above:Performed By: #### [id number] #### [facility] [address] [place], [place] [address]Bqbndirs [Moles/Vol]107 mmol/NHmukdm424-312MgxfsrCrystal Clinic Orthopedic CenterComment on above:Performed By: #### [id number] #### [facility] [address] [place] [place], [place] [address]YP3 [Moles/Vol]27 mmol/HPptwvz11-99PjqqecCrystal Clinic [facility] Comment on above:Performed By: #### [id number] #### [facility] [address] [place], [place] [address]Rnbevfaank [Mass/Vol]1.7 mg/dLHigh0.5-1.3FOhioHealthComment on above:Performed By: #### [id number] #### [facility] [address] [place], [place] [address]Pmcoyfx [Mass/Vol]106 mg/rXMxmjud39-529PeaabjCrystal Clinic Orthopedic CenterComment on above:Performed By: #### [id number] #### [facility] [address] [place], [place] [address]Rhvuxpzhc [Moles/Vol]4.2 mmol/LNormal3.5-5.3FOhioHealthComment on above:Performed By: #### [id number] #### [facility] [address] [place] [address]Txcnkm [Moles/Vol]137 mmol/OTogpot168-493SwsmvtCrystal Clinic Orthopedic CenterComment on above:Performed By: #### [id number] #### [facility] [address] [place] [address]Uamn nitrogen [Mass/Vol]71 mg/dLHigh5-21[facility] CenterComment on above:Performed By: #### [id number] #### [facility] [address] [place] [address]Ihhp nitrogen/Creatinine [Mass ratio]42 No TmdhcFuvg74-91BuahpvCrystal Clinic Orthopedic CenterComment on above:Performed By: #### [id number] #### [facility] [address] [place] [address]NWH w/ Auto Diffon 96-69-6440Uxqvvoiuz/100 WBC (Bld)0.5 %Normal 0.0-2.0[facility] CenterComment on above:Performed By: #### [id number] #### [facility] [address] [place] [address]Kntzuttlb/Leukocytes Auto (Bld) [Pure # fraction]0.0 E9/LNormal 0.0-0.2FOhioHealthComment on above:Performed By: #### [id number] #### [facility] [address] [place] [address]Vziwhtkuhsa (Bld) [#/Vol]0.4 E9/LNormal0.0-0.5FOhioHealthComment on above:Performed By: #### [id number] #### [facility] [address] [place] [address]Iqveigshtmt/100 WBC (Bld)11.2 %High0.0-8.0[facility] CenterComment on above:Performed By: #### [id number] #### [facility] [address] [place] [address]Fefgqbjwsix distribution width (RBC) [Ratio]15.0 %High10.9-14.2 [facility] CenterComment on above:Performed By: #### [id number] #### [facility] [address] [place] [address]Yjzaykgaei (Bld) [Volume fraction]33.7 %Low34.0-46.0[facility] CenterComment on above:Performed By: #### [id number] #### [facility] [address] [place] [address]Mhvklobizn (Bld) [Mass/Vol]11.4 g/dLLow12.0-16.0[facility] CenterComment on above:Performed By: #### [id number] #### [facility] [address] [place] [address]Kecscezltjd (Bld) [#/Vol]1.0 E9/LNormal1.0-4.0[facility] CenterComment on above:Performed By: #### [id number] #### [facility] [address] [place] [address]Dgvvpnbajpl/100 WBC (Bld)24.6 %Eadjfx68.0-50.0[facility] CenterComment on above:Performed By: #### [id number] #### [facility] [address] [place] [address] 240[address]HFB (RBC) [Entitic mass]30.3 jgVqtdse60.0-34.0[facility] CenterComment on above:Performed By: #### [id number] #### [facility] [address] [place] [address]CRLU (RBC) [Mass/Vol]33.9 g/lWDkdguj79.4-36.0[facility] CenterComment on above:Performed By: #### [id number] #### [facility] [address] [place] [address] 07684RCE (RBC) [Entitic vol]89.5 bCAceyvl35.0-100.0[facility] CenterComment on above:Performed By: #### [id number] #### [facility] [address] [place] [address]85[address]Lyhhqllda (Bld) [#/Vol]0.4 E9/LNormal0.2-1.0[facility] CenterComment on above:Performed By: #### [id number] #### [facility] [address] [place] [address]Rcnycpnjhiu (Bld) [#/Vol]2.1 E9/LNormal2.0-7.5FOhioHealthComment on above:Performed By: #### [id number] #### [facility] [address] [place] [address]39[address]Urkjnlhjpun/100 WBC (Bld)52.9 %Vycdca54.0-75.0[facility] CenterComment on above:Performed By: #### [id number] #### [facility] [address] [place] [address]Nmznvony mean volume (Bld) [Entitic vol]8.3 fLNormal6.4-10.8 [facility] CenterComment on above:Performed By: #### [id number] #### [facility] [address] [place] [address]Msboehmhp (Bld) [#/Vol]198.0 E9/NGsxakr018.0-500.0[facility] CenterComment on above:Performed By: #### [id number] #### [facility] [address] [place] [address]AAX (Bld) [#/Vol]3.8 E12/LLow4.3-5.9[facility] Comment on above:Performed By: #### [id number] #### [facility] [address] [place] [address] 97[address]KNE corrected for nucl RBC Auto (Bld) [#/Vol]4.0 E9/LNormal 4.0-11.0[facility] CenterComment on above:Result Comment: Peripheral smear review performed.Performed By: #### [id number] #### [facility] [address] [place], [place] [address]Loultokkwfqlsrpla Note - Case Manageron 02-27-2024 Interdisciplinary Note - Case ManagerInterdisciplinary Note - Panel Edge Sealer This SW rounded with patient today. She is aware that [facility] has accepted her and that insurance has approved, although patient is not ready for d/c for another day or 2 at this time. A new precert is needed as her current one expires today. WAB updated. SW made tc to patient's granddaughter, Miriam, and updated her. She will let patient's son and DIL know the plans and call SW back if they have any questions.[facility] SouthComment on above:Result Comment: Electronically Signed By: An MAE, Jailyn Sharma\.br\Date and Time Signed: 02/27/24 11:58 ESTLab Miscellaneous-LCon 30-89-5716Rdz MiscellaneousCOMMENT Invalid Interpretation [facility] CenterComment on above:Result Comment: Test Ordered: [id number] C difficile Toxins A+B, EIA C difficile Toxins A+B, EIA Negative CB Reference Range: Negative Performed at: [facility] [address] [id number] PhD Meme BeckerPerformed By: #### [id number] #### [facility] [address] [place], [place] [address]DV Renalon 63-03-3433XB RenalExam Date/Time: 02/27/2024 10:13 EST Reason for Exam: [...] shadowing calculi or hydronephrosis. Ordering Provider: Stefanie Abreu FINAL REPORT Dictated: 02/27/2024 11:31 am Kuldeep Patrick DO Signed (Electronic Signature): 02/27/2024 11:31 am Signed by: Kuldeep Patrick DO Transcribed by: ASTER Technologist: VladislavCrystal Clinic Orthopedic CenterVitamin D 25 Hydroxyon 96-39-966918628773-poijooulphcswg D3 [Mass/Vol]ng/mLLow30.0-100.0[facility] CenterComment on above:Performed By: #### [id number] #### [facility] [address] [place], [place] [address]vYUSkc 76-63-3845kERT94 mL/min/1.73 m2Low>=59[facility] CenterComment on above:Performed By: #### [id number] #### [facility] [address] [place] [place], [place] [address]KZQsh 30-19-9178Thmao gap [Moles/Vol]8 mmol/LNormal6-16[facility] Orthopedic CenterComment on above:Performed By: #### [id number] #### [facility] [address] [place] [place], [place] [address]Fvdwohq [Mass/Vol]7.6 mg/dLLow8.9-11.1FOhioHealthComment on above:Performed By: #### [id number] #### [facility] [address] [place] [place], [place] [address]Lwcsfhwz [Moles/Vol]107 mmol/UHdbcxn710-735NplvflCrystal Clinic Orthopedic CenterComment on above:Performed By: #### [id number] #### [facility] [address] [place] [place], [place] [address]AY6 [Moles/Vol]26 mmol/VHhviet63-08OgovveCrystal Clinic Orthopedic Center Comment on above:Performed By: #### [id number] #### [facility] [address] [place] [place], [place] [address]Ilolznchew [Mass/Vol]1.9 mg/dLHigh0.5-1.3FOhioHealthComment on above:Performed By: #### [id number] #### [facility] [address] [place] [place], [place] [address]Gjgwzbb [Mass/Vol]151 mg/lETxtxiw28-249QpsuowCrystal Clinic Orthopedic CenterComment on above:Performed By: #### [id number] #### [facility] [address] [place] [place], [place] [address]Hmhrijvoy [Moles/Vol]4.1 mmol/LNormal3.5-5.3FOhioHealthComment on above:Performed By: #### [id number] #### [facility] [address] [place], [place] [address]Vxjlal [Moles/Vol]137 mmol/HNwfqck416-104KbhwulCrystal Clinic Orthopedic CenterComment on above:Performed By: #### [id number] #### [facility] [address] [place] [place], [place] [address]Lhkx nitrogen [Mass/Vol]71 mg/dLHigh5-21[facility] CenterComment on above:Performed By: #### [id number] #### [facility] [address] [place] [place], [place] [address]Hyqn nitrogen/Creatinine [Mass ratio]37 No DnuwpGkhn45-95QrjxqgCrystal Clinic Orthopedic CenterComment on above:Performed By: #### [id number] #### [facility] [address] [place] [place], [place] [address]Z Urineon 88-99-7026Kcuuojbm identified Cx Nom (U)Microbiology PROCEDURE: Urine Culture [R1] SOURCE: U Cath [...] or tested, I=Intermediate, ESBL=Extended spectrum beta-lactamase, R=Resistant, TFG=Thymidine-dependent strain, HEATHER=Beta-lactamase positive, DUC=mcg/m;(mg/L), S*=Predicted susceptible interp, [...] Locations R1: This test was performed at: [facility], [address] [place] [address], [id number] , , KrhdzzUrhqenPremier Health Miami Valley Hospital SouthComment on above:Performed By: #### [id number] #### [facility] [address] [place] [address]gKLGrp 25-31-7903tDNH90 mL/min/1.73 m2Low>=59C[facility] Orthopedic CenterComment on above:Performed By: #### [id number] #### [facility] [address] [place] [address]F. diff by PCRon 67-99-4428Tgpbaxcpyui difficile by PCRPositive AbnormalNegativeCrystal Clinic Orthopedic CenterComment on above:Order Comment: Order added by Discern Expert.Result Comment: called to Melissa Jones/Altagracia by 02/25/2024 09:09:23 EST This test result should be correlated with clinical presentations and medical history by a healthcare provider to determine its clinical significance. Performed By: #### [id number] #### [facility] [address] [place] [address]KQY w/ Auto Diffon 31-39-2305Mfakdslue/100 WBC (Bld)0.5 %Normal 0.0-2.0[facility]opedic CenterComment on above:Performed By: #### [id number] #### [facility] [address] [place] [address]Kdvmxwwhv/Leukocytes Auto (Bld) [Pure # fraction]0.0 E9/LNormal 0.0-0.2FOhioHealthComment on above:Performed By: #### [id number] #### [facility] [address] [place] [address]Pjplimrfpla (Bld) [#/Vol]0.3 E9/LNormal0.0-0.5FOhioHealthComment on above:Performed By: #### [id number] #### [facility] [address] [place] [address]Pmgqeuwoaml/100 WBC (Bld)6.3 %Normal0.0-8.0[facility] CenterComment on above:Performed By: #### [id number] #### [facility] [address] [place] [address]Qlynzdkvgik distribution width (RBC) [Ratio]15.3 %High10.9-14.2 [facility] CenterComment on above:Performed By: #### [id number] #### [facility] [address] [place] [address]Sanjzcyepy (Bld) [Volume fraction]32.5 %Low34.0-46.0[facility] CenterComment on above:Performed By: #### [id number] #### [facility] [address] [place] [address]Eomyonhmnx (Bld) [Mass/Vol]11.0 g/dLLow12.0-16.0[facility] CenterComment on above:Performed By: #### [id number] #### [facility] [address] [place] [address]Xmiodkhbvdd (Bld) [#/Vol]1.0 E9/LNormal1.0-4.0[facility] CenterComment on above:Performed By: #### [id number] #### [facility] [address] [place] [address]Slcdkuxdnsy/100 WBC (Bld)22.3 %Cdygmv85.0-50.0[facility] CenterComment on above:Performed By: #### [id number] #### [facility] [address] [place] [address]TKP (RBC) [Entitic mass]30.3 lyXfnrnp12.0-34.0[facility] CenterComment on above:Performed By: #### [id number] #### [facility] [address] [place] [address]CXKT (RBC) [Mass/Vol]33.7 g/qNQmbohf48.4-36.0[facility] CenterComment on above:Performed By: #### [id number] #### [facility] [address] [place] [address]VCK (RBC) [Entitic vol]89.7 iVAtrsen58.0-100.0[facility] CenterComment on above:Performed By: #### [id number] #### [facility] [address] [place] [place], [place] [address]Xiihofrvt (Bld) [#/Vol]0.5 E9/LNormal0.2-1.0[facility] CenterComment on above:Performed By: #### [id number] #### [facility] [address] [place] [address]Kzcojcqunkv (Bld) [#/Vol]2.7 E9/LNormal2.0-7.5FOhioHealthComment on above:Performed By: #### [id number] #### [facility] [address] [place] [place], [place] [address]Acpddsgtjbt/100 WBC (Bld)60.7 %Ulvglk23.0-75.0[facility] CenterComment on above:Performed By: #### [id number] #### [facility] [address] [place] [address]Bdgmlhma805.0 E9/RHgymlm184.0-500.0[facility] Comment on above:Performed By: #### [id number] #### [facility] [address] [place] [address]Odfipzty mean volume (Bld) [Entitic vol]8.5 fLNormal6.4-10.8 [facility] CenterComment on above:Performed By: #### [id number] #### [facility] [address] [place] [place], [place] [address]ZZP (Bld) [#/Vol]3.6 E12/LLow4.3-5.9[facility] Comment on above:Performed By: #### [id number] #### [facility] [address] [place] [address]YAI corrected for nucl RBC Auto (Bld) [#/Vol]4.4 E9/LNormal 4.0-11.0[facility] CenterComment on above:Performed By: #### [id number] #### [facility] [address] [place] [address]OBwma PCRon 02-25-2024. difficile toxin A+B Ql (Stl)No, PCR to followNormalCrystal Clinic Orthopedic CenterComment on above:Performed By: #### [id number] #### [facility] [address] [place] [place], [place] [address]HUQaz 55-30-0696Xydsmev [Mass/Vol]2.0 g/dLLow3.3-5.0[facility] CenterComment on above:Performed By: #### [id number] #### [facility] [address] [place] [place], [place] [address]Obtbwaz/Globulin (S) [Mass conc ratio]0.7Low1.1-2.2FOhioHealthComment on above:Performed By: #### [id number] #### [facility] [address] [place] [address]SMI [Catalytic activity/Vol]91 Int._Unit/CTqnivg59-48JcgygwCrystal Clinic Orthopedic CenterComment on above:Performed By: #### [id number] #### [facility] [address] [place] [place], [place] [address]LVN No additional P-5'-P [Catalytic activity/Vol]12 Int._Unit/L Normal6-46[facility] CenterComment on above:Performed By: #### [id number] #### [facility] [address] [place] [place], [place] [address]Svlun gap [Moles/Vol]9 mmol/LNormal6-16[facility] CenterComment on above:Performed By: #### [id number] #### [facility] [address] [place] [place], [place] [address]ZHC [Catalytic activity/Vol]21 Int._Unit/LNormal5-43[facility] CenterComment on above:Performed By: #### [id number] #### [facility] [address] [place] [place], [place] [address]Zkuaslxgh [Mass/Vol]0.6 mg/dLNormal0.0-1.1FOhioHealthComment on above:Performed By: #### [id number] #### [facility] [address] [place] [place], [place] [address]Vablrel [Mass/Vol]7.9 mg/dLLow8.9-11.1FOhioHealthComment on above:Performed By: #### [id number] #### [facility] [address] [place] [place], [place] [address]Vrsdpxzt [Moles/Vol]110 mmol/EHtvpnh523-854YptnkdCrystal Clinic Orthopedic CenterComment on above:Performed By: #### [id number] #### [facility] [address] [place] [place], [place] [address]HZ3 [Moles/Vol]25 mmol/PEeiyic25-38JaxbqxCrystal Clinic Orthopedic Center Comment on above:Performed By: #### [id number] #### [facility] [address] [place] [place], [place] [address]Qzapynknbs [Mass/Vol]1.8 mg/dLHigh0.5-1.3FOhioHealthComment on above:Performed By: #### [id number] #### [facility] [address] [place] [place], [place] [address]Iwmiivga (S) [Mass/Vol]2.7 g/dLNormal1.4-4.0[facility] CenterComment on above:Performed By: #### [id number] #### [facility] [address] [place] [place], [place] [address]Qushsmq [Mass/Vol]95 mg/qYGmnsad93-847RxfsgjCrystal Clinic Orthopedic CenterComment on above:Performed By: #### [id number] #### [facility] [address] [place] [place], [place] [address]Rjwqugeco [Moles/Vol]4.0 mmol/LNormal3.5-5.3FOhioHealthComment on above:Performed By: #### [id number] #### [facility] [address] [place] [place], [place] [address]Eyqggjm [Mass/Vol]4.7 g/dLLow6.0-7.8[facility] Comment on above:Performed By: #### [id number] #### [facility] [address] [place] [place], [place] [address]Hnrxhq [Moles/Vol]140 mmol/JYowwzp122-437MryojmCrystal Clinic Orthopedic CenterComment on above:Performed By: #### [id number] #### [facility] [address] [place] [place], [place] [address]Vgab nitrogen [Mass/Vol]67 mg/dLHigh5-21[facility] CenterComment on above:Performed By: #### [id number] #### [facility] [address] [place], [place] [address]Jcun nitrogen/Creatinine [Mass ratio]37 No JmortKzyn36-35YwhxtpCrystal Clinic Orthopedic CenterComment on above:Performed By: #### [id number] #### [facility] [address] [place] [address]Muc Miscellaneous-LCon 52-79-5959Pwlu Ktyx413083Mdpoprx Interpretation [facility] CenterComment on above:Performed By: #### [id number] #### [facility] [address] [place] [address]Qqjp NameCdiff Toxin AgInvalid Interpretation [facility] CenterComment on above:Performed By: #### [id number] #### [facility] [address] [place] [place], [place] [address]XV with Cult Rflxon 82-34-9282Tehv of Urine collection method CatheterNormalCrystal Clinic Orthopedic CenterComment on above:Result Comment: Test results were corrected for specimen description changed to cath specimen. Performed By: #### [id number] #### [facility] [address] [place], [place] [address]dFCClg 20-00-4859qPKQ80 mL/min/1.73 m2Low>=59[facility] CenterComment on above:Performed By: #### [id number] #### [facility] [address] [place] [place], [place] [address]UH with Cult Rflxon 81-68-1952Cvdcuctj Auto Ql (U)1+ /HPF AbnormalTraceCrystal Clinic Orthopedic CenterComment on above:Performed By: #### [id number] #### [facility] [address] [place] [place], [place] [address]Ynkubklyr Ql (U)NegativeNormalNegativeCrystal Clinic Orthopedic CenterComment on above:Performed By: #### [id number] #### [facility] [address] [place], [place] [address]Gftfmib (U)TurbidAbnormalClearFisher [facility] Comment on above:Performed By: #### [id number] #### [facility] [address] [place] [place], [place] [address]Gqpku (U)YellowNormalYellowCrystal Clinic Orthopedic CenterComment on above:Result Comment: Microscopic readings are only performed on those samples that meet specific criteria set forth by [facility].Performed By: #### [id number] #### [facility] [address] [place] [place], [place] [address]Cjshckbj.amorphous Computer assisted Ql (U)PresentAbnormal [facility] CenterComment on above:Performed By: #### [id number] #### [facility] [address] [place] [address]Cifhclzflq cells.squamous Auto (Urine sed) [#/Area]0-2Invalid Interpretation CodeCrystal Clinic Orthopedic CenterComment on above:Performed By: #### [id number] #### [facility] [address] [place], [place] [address]Vhdnkiq Ql (U)NegativeNormalNegHolzer Health System Comment on above:Performed By: #### [id number] #### [facility] [address] [place], [place] [address]Zodibamggf Auto test strip (U) [Mass/Vol]2+ mg/dLAbnormal [facility] HospitalComment on above:Performed By: #### [id number] #### [facility] [address] [place] [place], [place] [address]Jmhkfak Auto test strip Ql (U)NegativeNormalNegativeCrystal Clinic Orthopedic CenterComment on above:Performed By: #### [id number] #### [facility] [address] [place] [address]Tqkaueqyz esterase Auto test strip Ql (U)25 Maty/uLNormal NegativeCrystal Clinic Orthopedic CenterComment on above:Performed By: #### [id number] #### [facility] [address] [place] [address]Nfglz Auto Ql (U)TraceNormalNegativeC[facility] Comment on above:Performed By: #### [id number] #### [facility] [address] [place] [address]Jyrpbvl Auto test strip Ql (U)NegativeNormalNegativeCrystal Clinic Orthopedic CenterComment on above:Performed By: #### [id number] #### [facility] [address] [place] [address]iU (U)6.0 [pH]Invalid Interpretation Code5.0-9.0[facility] CenterComment on above:Performed By: #### [id number] #### [facility] [address] [place] [address]Vguhlyc Ql (U)3+ mg/dLAbnormalNegativeCrystal Clinic Orthopedic CenterComment on above:Performed By: #### [id number] #### [facility] [address] [place] [address]DCO Ql (U)3-48Tvrqscyr9-2Xlurap [facility] And HospitalComment on above:Performed By: #### [id number] #### [facility] [address] [place] [place], [place] [address]Bbfnjcdz gravity (U) [Rel density]1.024Invalid Interpretation Code1.005-1.030[facility] CenterComment on above:Performed By: #### [id number] #### [facility] [address] [place] [address]Vpxwmieqcxhy (U) [Mass/Vol]NegativeNormalNegativeFisher [facility] And HospitalComment on above:Performed By: #### [id number] #### [facility] [address] [place] [place], [place] [address]KPD Auto (Urine sed) [#/Area]87-91Koizyvek8-6Ixpgii [facility] HospitalComment on above:Performed By: #### [id number] #### [facility] [address] [place] [place], [place] [address]LQ breast LT completeon 68-53-8627TK breast LT complete [facility] [place] [address] [place] [address] Ultrasound Report Signed Patient: Jaclyn An MR#: [id number] : 1945 Acct:[id number] Age/Sex: 78 / F ADM Date: 11/22/23 Loc: [facility] Room: Type: [facility] Attending Dr: Charles Mercado DO Ordering Provider: Amalia Mancera DO, DAVID Date of Service: 11/22/23 US/US breast LT [...] Casey Parsons M.D.11/22/2023 8:24 AM Dictation Location: [facility] Tech: Vonda Kauffman Transcribed By: GABRIEL 11/22/23823 Dictated By: Casey Parsons II, MD 11/22/23818 Signed By: 11/22/23823[facility] Physician GroupXR Shoulder Complete Lefton 70-62-8604DU Shoulder Complete LeftExam Date/Time: 10/01/2023 22:56 EDT Reason for Exam: [...] Kuldeep Patrick DO Transcribed by: ASTER Technologist: HAYDEE Technical Comments Radiation Dose: Ka,r in mGy = na DAP = naNormalCrystal Clinic Orthopedic CenterBMPon 56-22-0799Iedgh gap [Moles/Vol]10 mmol/LNormal6-16[facility] CenterComment on above:Performed By: #### [id number] #### [facility] [address] [place] [place], [place] [address]Hnmkwos [Mass/Vol]8.2 mg/dLLow8.9-11.1FOhioHealthComment on above:Performed By: #### [id number] #### [facility] [address] [place] [place], [place] [address]Sjmvxtug [Moles/Vol]107 mmol/DHbgiuy177-956OcjusbCrystal Clinic Orthopedic CenterComment on above:Performed By: #### [id number] #### [facility] [address] [place] [place], [place] [address]HG0 [Moles/Vol]27 mmol/EYieuty61-02DwbrtlCrystal Clinic Orthopedic Center Comment on above:Performed By: #### [id number] #### [facility] [address] [place] [place], [place] [address]Gbewgcjzem [Mass/Vol]0.8 mg/dLNormal0.5-1.3FOhioHealthComment on above:Performed By: #### [id number] #### [facility] [address] [place] [place], [place] [address]Wpnclgj [Mass/Vol]115 mg/iLVlumyz21-314NjsbrlCrystal Clinic Orthopedic CenterComment on above:Performed By: #### [id number] #### [facility] [address] [place] [place], [place] [address]Wnmtevmvk [Moles/Vol]4.0 mmol/LNormal3.5-5.3FOhioHealthComment on above:Performed By: #### [id number] #### [facility] [address] [place], [place] [address]Gxahio [Moles/Vol]140 mmol/DHsvcnw668-041YjnmxfCrystal Clinic Orthopedic CenterComment on above:Performed By: #### [id number] #### [facility] [address] [place], [place] [address]Lpcw nitrogen [Mass/Vol]26 mg/dLHigh5-21[facility] CenterComment on above:Performed By: #### [id number] #### [facility] [address] [place], [place] [address]Qsqd nitrogen/Creatinine [Mass ratio]32 No NxtnqCwsv44-22LcdtujCrystal Clinic Orthopedic CenterComment on above:Performed By: #### [id number] #### [facility] [address] [place] [place], [place] [address]XQH w/ Auto Diffon 21-71-9931Ysemxkujr/100 WBC (Bld)0.8 %Normal 0.0-2.0[facility] CenterComment on above:Performed By: #### [id number] #### [facility] [address] [place] [address]Kddqorwdi/Leukocytes Auto (Bld) [Pure # fraction]0.0 E9/LNormal 0.0-0.2FOhioHealthComment on above:Performed By: #### [id number] #### [facility] [address] [place] [address]Kjjitkvotoa (Bld) [#/Vol]0.2 E9/LNormal0.0-0.5FOhioHealthComment on above:Performed By: #### [id number] #### [facility] [address] [place] [address]Ppvbmyxfraq/100 WBC (Bld)3.5 %Normal0.0-8.0[facility] CenterComment on above:Performed By: #### [id number] #### [facility] [address] [place] [address]Kiahwuddvmo distribution width (RBC) [Ratio]14.7 %High10.9-14.2 [facility] CenterComment on above:Performed By: #### [id number] #### [facility] [address] [place] [address]Eodxvxtlax (Bld) [Volume fraction]43.6 %Fmwruy12.0-46.0[facility] CenterComment on above:Performed By: #### [id number] #### [facility] [address] [place] [address]Jrrauxxvxd (Bld) [Mass/Vol]14.7 g/iFVhxqum43.0-16.0[facility] CenterComment on above:Performed By: #### [id number] #### [facility] [address] [place] [address]Bnnhemzoedy (Bld) [#/Vol]1.3 E9/LNormal1.0-4.0[facility] CenterComment on above:Performed By: #### [id number] #### [facility] [address] [place] [address]Mqpwqzjipci/100 WBC (Bld)23.0 %Fugggz37.0-50.0[facility] CenterComment on above:Performed By: #### [id number] #### [facility] [address] [place] [address]OUA (RBC) [Entitic mass]30.2 mvMczovw94.0-34.0[facility] CenterComment on above:Performed By: #### [id number] #### [facility] [address] [place] [address]UPBN (RBC) [Mass/Vol]33.7 g/lYMyegbt56.4-36.0[facility] CenterComment on above:Performed By: #### [id number] #### [facility] [address] [place] [address]PYN (RBC) [Entitic vol]89.6 oVHftfzu85.0-100.0[facility] CenterComment on above:Performed By: #### [id number] #### [facility] [address] [place] [address]Ulspxuyfn (Bld) [#/Vol]0.4 E9/LNormal0.2-1.0[facility] CenterComment on above:Performed By: #### [id number] #### [facility] [address] [place] [address]Gjjgbkacvjc (Bld) [#/Vol]3.5 E9/LNormal2.0-7.5FOhioHealthComment on above:Performed By: #### [id number] #### [facility] [address] [place] [address]Ccsilowdyxv/100 WBC (Bld)64.6 %Axrulh89.0-75.0[facility] CenterComment on above:Performed By: #### [id number] #### [facility] [address] [place], [place] [address]Dutxsqfh mean volume (Bld) [Entitic vol]8.7 fLNormal6.4-10.8 [facility] CenterComment on above:Performed By: #### [id number] #### [facility] [address] [place], [place] [address]Lrnhvvzhx (Bld) [#/Vol]214.0 E9/CEjpkbg643.0-500.0[facility] CenterComment on above:Performed By: #### [id number] #### [facility] [address] [place] [address]DBK (Bld) [#/Vol]4.9 E12/LNormal4.3-5.9[facility] CenterComment on above:Performed By: #### [id number] #### [facility] [address] [place] [address]DDX corrected for nucl RBC Auto (Bld) [#/Vol]5.4 E9/LNormal 4.0-11.0[facility] CenterComment on above:Performed By: #### [id number] #### [facility] [address] [place] [address]ORODXEKEGMkwekdf By: SYSTEM SYSTEM on 87-14-0042Fanlekz [Mass/Vol]2.2 g/dLLow3.3 - 5.0 gm/dLRemisol ChemAlbumin/Globulin [Mass ratio]0.6 {ratio}Low1.1 - 2.2Remisol ChemALP [Catalytic activity/Vol]137 [iU]/dHigh21 - 98 Int._Unit/LRemisol ChemALT No additional P-5'-P [Catalytic activity/Vol]20 [iU]/dNormal6 - 46 Int._Unit/LRemisol ChemAnion gap [Moles/Vol]10 mmol/LNormal6 - 16 mEq/LRemisol ChemAST [Catalytic activity/Vol]27 [iU]/dNormal5 - 43 Int._Unit/LRemisol ChemBilirubin [Mass/Vol]0.4 mg/dLNormal0.0 - 1.1 mg/dLRemisol ChemBilirubin.direct [Mass/Vol]0.1 mg/dLNormal0.0 - 0.4 mg/dLRemisol Chem Bilirubin.indirect [Mass or moles/Vol]0.3 mg/dLNormal0.1 - 0.9 mg/dLRemisol Chem Calcium [Mass/Vol]8.2 mg/dLLow8.9 - 11.1 mg/dLRemisol ChemChloride [Moles/Vol] 107 mmol/NXezcol414 - 111 mmol/LRemisol ChemCO2 [Moles/Vol]27 mmol/JCybvbe80 - 31 mmol/LRemisol ChemCreatinine [Mass/Vol]0.8 mg/dLNormal0.5 - 1.3 mg/dLRemisol CwxmeEGH95 mL/min/1.73 d1Qmfkzw>=59mL/min/1.73 a5Klvrfjw ChemGlobulin (S) [Mass/Vol]3.6 g/dLNormal1.4 - 4.0 gm/dLRemisol ChemGlucose [Mass/Vol]115 mg/dL Rflmzt04 - 199 mg/dLRemisol ChemPotassium [Moles/Vol]4.0 mmol/LNormal3.5 - 5.3 mmol/LRemisol ChemProtein [Mass/Vol]5.8 g/dLLow6.0 - 7.8 gm/dLRemisol ChemSodium [Moles/Vol]140 mmol/NDknyuk493 - 145 mmol/LRemisol ChemUrea nitrogen [Mass/Vol] 26 mg/dLHigh5 - 21 mg/dLRemisol ChemUrea nitrogen/Creatinine [Mass ratio]32 mg/hzJiki92 - 20Remisol ChemED Clinical Summaryon [id number] Clinical Summary ED Clinical Summary [place] [id number] ED Clinical Summary Person Information Name: JACLYN AN [place] Age: 78 Years : 1945 Sex: Female Language: Sinhala [facility] Marital Status: Phone: [phone] Visit Id: Visit Reason: Shoulder pain-swelling; Abdominal pain; ABD PAIN - STATES HER C- SECTION FROM 40 YRS AGO IS COMIGN APART [...] 10/01/2023 23:32:39 10/01/2023 23:32:39 10/01/2023 23:32:39 ADDRESS: [address] [place] [phone] PHYS DOC NOTES: MEDICAL INFORMATION: Prescriptions Given: New Medications [facility], [address] [place], [place] [id number], [phone] doxycycline (doxycycline hyclate 100 mg Tab) 1 [...] D (Calcium 600+D) By Mouth every day. hydrochlorothiazide-lisinopril (hydrochlorothiazide-lisinopril 25 mg-20 mg Tab) 1 Tablets By Mouth every day. loratadine (loratadine 10 mg Tab) 1 Tablets By Mouth every day. meloxicam (meloxicam 15 mg oral tablet) 1 Tablets. [facility] Prescription (Check BMP in 3-5 days) 0. Fax results to primary care physician. Diagnoses : Acute kidney injury. Refills: 0. tramadol (traMADOL 50 mg Tab) 1 Tablets By Mouth every 12 hours as needed for pain. PATIENT EDUCATION INFORMATION: Instructions: Shoulder Range of Motion Exercises; Cellulitis, Adult, Fple-rd-Nhcr; Arthritis, Ftux-cf-Rryd Follow up: With: Address: When: Mark Hernandez [address] [place], [place] [id number] Business (1) In 3 days 10/04/2023 With: Address: When: [place] [phone] Business (1) In 3 days 10/04/2023 Comments: Take the antibiotics as prescribed to you have completed the course. You can use the pain medication as prescribed as needed for pain. Please follow-up with orthopedics and your primary care doctor for further evaluation management. Please return to ED for any new or worsening symptoms. DIAGNOSIS: Abdominal wall cellulitis; Arthritis of shoulderNormalFisher Mystic Medical CenterED Note-Physicianon [id number] Note-PhysicianED Note-Physician Basic Information Time Seen: Muriel Le [...] there is surrounding cellulitis of the lower abdominalwall Extremities: Pain on palpation on movement of the shoulder, pain with external and internal rotation no obvious deformity Neurologic: Alert and oriented, speech clear Skin: No rashes or lesions Psych: Appropriate mood and behavior Medical Decision Making MEDICAL DECISION MAKING Number and Complexity of Problems Differential Diagnosis: [] [facility] Data External documents reviewed: [] My [...] of dehiscence of her incision. Laboratory evaluation isobtained, x-ray of the shoulder is ordered. Patient's [...] Stop date 10/01/23 23:14:00 EDT, STAT, Start date10/01/23 23:14:00 EDT doxycycline, 100 mg = 1 cap(s), Cap, Oral, Once, Stop date 10/01/23 23:14:00 EDT, STAT, Start date 10/01/23 23:14:00 EDT, 10/01/23 23:14:00 EDT doxycycline, 100 mg = 1 tab(s), Oral, q12hr, X 10 day(s), # 20 tab(s), Refills(s) 0, Pharmacy: [facility], 152, cm, 10/01/23 21:34:00 EDT, Height/Length Dosing, 155, kg, 10/01/23 21:34:00 EDT, Weight Dosing naproxen, 500 mg = 1 tab(s), Oral, BID, PRN for pain, # 20 tab(s), Refills(s) 0, Pharmacy: [facility], 152, cm, 10/01/23 21:34:00 EDT, Height/Length Dosing, 155, kg, 10/01/23 21:34:00 EDT,Weight Dosing Basic Metabolic Panel CBC w/ Auto Diff eGFR Hepatic Function Panel UA with Cult Rflx XR Shoulder Complete Left Medications Administered Given doxycycline hyclate 100 mg Cap, 100 mg, Oral Greer 325 mg-5 mg oral tablet, 1 tab(s), Oral TO GO acetaminophen-hydrocodone 325 mg - 5 mg, 1 EA, Oral Disposition Plan Discharge Prescription List Prescriptions doxycycline hyclate 100 mg Tab, 100 mg= 1 tab(s), Oral, q12hr Naprosyn 500 mg Tab, 500 mg= 1 tab(s), Oral, BID, PRN Follow-up With When Contact Information Mark Hernandez In 3 days 10/04/2023 EDT [address] [place] [address]- Business (1) [facility] 10/04/2023 EDT [address] [place] [phone] Business (1) Additional Instructions: Take the antibiotics as prescribed to you have (more content not included)...[facility] SouthComment on above:Result Comment: Electronically Signed By: Muriel Le DO\.br\Date and Time Signed: 10/01/23 23:32 EDTED Patient Summaryon [id number] Patient SummaryED Patient Summary [place] [id number] Patient Discharge Instructions Person Information Name: JACLYN AN Age: 78 Years Arrival Date: 10/01/2023 20:54:07 Discharge Diagnosis: Abdominal wall cellulitis; Arthritis of shoulder [facility] Provider Information Primary Provider: Muriel Le DO Advanced Information Broker:None The exam and treatment you received in the Emergency Department were for an urgent problem and are not intended as complete care. It is important that you follow up with a doctor, nurse practitioner,or physician?s housing assistant property manager for ongoing care. If your symptoms become worse or you do not improve as expected and you are unable to reach your usual health care provider, you should return to the Emergency Department. We are available 24 hours a day. JACLYN AN has been given the following list of patient education materials, prescriptions and follow-up instructions: Follow-up Instructions: With: Address: When: Mark Hernandez [address] [place] [phone] Business (1) In 3 days 10/04/2023 With: Address: When: [address] [phone] Business (1) In 3 days 10/04/2023 Comments: [...] Shoulder Range of Motion Exercises; Cellulitis, Adult, Wgok-rp-Jjmr; Arthritis, Ilhk-iq-Rycb A MESSAGE TO ALL PATIENTS REGARDING OPIOIDS PRESCRIPTION OPIOIDS: WHAT YOU NEED TO KNOW Prescription opioids can be used to help relieve qnnrciiw-yh-ycnjew pain and are often prescribed following a [...] and have fewer risks and side effects. Optionsmay include: ? Pain relievers such as acetaminophen, [...] children, friends, and (more content not included)... [facility] SouthHEMATOLOGYOrdered By: SYSTEM SYSTEM on 91-67-6466Bvfieuptp/100 WBC (Bld)0.8 %Normal0.0 - 2.0 %Remisol Heme Basophils/Leukocytes Auto (Bld) [Pure # fraction]0.0 E9/LNormal0.0 - 0.2 E9/L Remisol HemeEosinophils (Bld) [#/Vol]0.2 E9/LNormal0.0 - 0.5 E9/LRemisol Heme Eosinophils/100 WBC (Bld)3.5 %Normal0.0 - 8.0 %Remisol HemeErythrocyte distribution width (RBC) [Ratio]14.7 %High10.9 - 14.2 %Remisol HemeHematocrit (Bld) [Volume fraction]43.6 %Lqwqca81.0 - 46.0 %Remisol HemeHemoglobin (Bld) [Mass/Vol]14.7 g/oPDcplbg29.0 - 16.0 gm/dLRemisol HemeLymphocytes (Bld) [#/Vol] 1.3 E9/LNormal1.0 - 4.0 E9/LRemisol HemeLymphocytes/100 WBC (Bld)23.0 %Normal 14.0 - 50.0 %Remisol HemeMCH (RBC) [Entitic mass]30.2 glSgawhl41.0 - 34.0 pg Remisol HemeMCHC (RBC) [Mass/Vol]33.7 g/tFWmsrnm37.4 - 36.0 gm/dLRemisol HemeMCV (RBC) [Entitic vol]89.6 lRKooleg25.0 - 100.0 fLRemisol HemeMonocytes (Bld) [#/Vol]0.4 E9/LNormal0.2 - 1.0 E9/LRemisol HemeMonocytes/100 WBC (Bld)8.1 % Normal4.0 - 14.0 %Remisol HemeNeutrophils (Bld) [#/Vol]3.5 E9/LNormal2.0 - 7.5 E9/LRemisol HemeNeutrophils/100 WBC (Bld)64.6 %Uzmlpc86.0 - 75.0 %Remisol Heme Platelet mean volume (Bld) [Entitic vol]8.7 fLNormal6.4 - 10.8 fLRemisol Heme Platelets (Bld) [#/Vol]214.0 E9/ZDrlgbi398.0 - 500.0 E9/LRemisol HemeRBC (Bld) [#/Vol]4.9 E12/LNormal4.3 - 5.9 E12/LRemisol HemeWBC corrected for nucl RBC Auto (Bld) [#/Vol]5.4 E9/LNormal4.0 - 11.0 E9/LRemisol HemeHep Func Panelon 88-96-4345Uhzwggf [Mass/Vol]2.2 g/dLLow3.3-5.0[facility] Orthopedic CenterComment on above:Performed By: #### [id number] #### [facility] [address] [place], [place] [address]Qljqyxa/Globulin (S) [Mass conc ratio]0.6Low1.1-2.2FOhioHealthComment on above:Performed By: #### [id number] #### [facility] [address] [place], [place] [address]JPT [Catalytic activity/Vol]137 Int._Unit/BGlzo95-07CejokpCrystal Clinic Orthopedic CenterComment on above:Performed By: #### [id number] #### [facility] [address] [place], [place] [address]PPG No additional P-5'-P [Catalytic activity/Vol]20 Int._Unit/L Normal6-46[facility] Orthopedic CenterComment on above:Performed By: #### [id number] #### [facility] [address] [place], [place] [address]NRQ [Catalytic activity/Vol]27 Int._Unit/LNormal5-43[facility] Orthopedic CenterComment on above:Performed By: #### [id number] #### [facility] [address] [place], [place] [address]Qhmprkhgg [Mass/Vol]0.4 mg/dLNormal0.0-1.1FOhioHealthComment on above:Performed By: #### [id number] #### [facility] [address] [place], [place] [address]Yoqmxvcrt.direct [Mass/Vol]0.1 mg/dLNormal0.0-0.4FOhioHealthComment on above:Performed By: #### [id number] #### [facility] [address] [place] [address]Npvsmcwzl.indirect [Mass or moles/Vol]0.3 mg/dLNormal0.1-0.9 [facility] CenterComment on above:Performed By: #### [id number] #### [facility] [address] [place], [place] [address]Hhvvlkub (S) [Mass/Vol]3.6 g/dLNormal1.4-4.0[facility] CenterComment on above:Performed By: #### [id number] #### [facility] [address] [place] [address]Deeqysa [Mass/Vol]5.8 g/dLLow6.0-7.8[facility] Comment on above:Performed By: #### [id number] #### [facility] [address] [place], [place] [address]bYDXbq 08-90-2130hBUO86 mL/min/1.73 c7Cqzttb>=59C[facility] Orthopedic CenterComment on above:Order Comment: Order added by Discern Expert. Performed By: #### [id number] #### [facility] [address] [place], [place] [address]Uldvibf aminotransferase [Enzymatic activity/volume] in Serum or PlasmaOrdered By: Saman Castrejon on 89-26-3421LYS [Catalytic activity/Vol]19 U/L7-52[facility] CompanyAlbumin [Mass/volume] in Serum or Plasma by Bromocresol green (BCG) dye binding methoOrdered By: Saman Tobiassain on 67-89-5027Oiixojl BCG dye [Mass/Vol]3.9 g/dL3.5-5.7FKettering Health DaytonAlkaline phosphatase [Enzymatic activity/volume] in Serum or PlasmaOrdered By: Saman Cash on 15-97-1616FJZ [Catalytic activity/Vol]92 U/G57-385AldeszhzlRegency Hospital CompanyAspartate aminotransferase [Enzymatic activity/volume] in Serum or PlasmaOrdered By: Saman Cash on 10-97-2204YHH [Catalytic activity/Vol]23 U/T95-78IsamhcskqRegency Hospital CompanyBasophils Auto (Bld) [#/Vol]Ordered By: Saman Cash on 57-60-6048Savhcuqge (Bld) [#/Vol]0.0 10*3/uL 0.0-0.2FKettering Health DaytonBasophils/100 WBC Auto (Bld)Ordered By: Saman Cash on 98-13-1718Ybndbazeh/100 WBC (Bld)0.5 %.[facility] Hospital CompanyBilirubin.total [Mass/volume] in Serum or PlasmaOrdered By: Saman Cash on 50-30-4150Uvsbmvklv [Mass/Vol]1.1 mg/dL0.3-1.0[facility] CompanyCalcium [Mass/volume] in Serum or PlasmaOrdered By: Saman Cash on 48-01-7365Nrtalgd [Mass/Vol]9.9 mg/dL8.6-10.3FKettering Health DaytonCarbon dioxide, total [Moles/volume] in Serum or PlasmaOrdered By: Saman Cash on 09-31-3449YR5 [Moles/Vol]30.1 mmol/L21.0-31.0[facility] CompanyChloride [Moles/volume] in Serum or PlasmaOrdered By: Saman Tobiassain on 54-38-3124Iditpaih [Moles/Vol]104 mmol/A85-897BksuyasmnRegency Hospital CompanyCholesterol [Mass/volume] in Serum or PlasmaOrdered By: Saman Castrejon on 32-14-2951Awgcbywcudg [Mass/Vol]138 mg/gH123-138TbqfmmjczRegency Hospital CompanyComment on above:Chol less than 200 mg/dl low riskChol 201-239 mg/dl borderline riskChol 240 mg/dl and greater high riskCholesterol in LDL Calc [Mass/Vol]Ordered By: Saman Castrejon on 93-59-0162Firwxlwpokw in LDL [Mass/Vol]72 mg/dL0-100[facility] CompanyComment on above:LDL ATP III CLASSIFICATIONLDL less than 100 mg/dL OptimalLDL 100-129 mg/dL Near or above jfvgzliEMJ355-534 mg/dL Borderline highLDL 160-189 mg/dL HighLDL greater than 189 mg/dL Very highCholesterol in VLDL Calc [Mass/Vol]Ordered By: Saman Castrejon on 70-89-0892Wtttztuevdp in VLDL [Mass/Vol]21 mg/dLRegency Hospital CompanyCreatinine [Mass/volume] in Serum or PlasmaOrdered By: Saman Castrejon on 12-98-9454Vwgqezwqsa [Mass/Vol]0.89 mg/dL0.60-1.20[facility] CompanyEosinophils Auto (Bld) [#/Vol]Ordered By: Saman Castrejon on 01-19-2023 Eosinophils (Bld) [#/Vol]0.2 10*3/uL0.0-0.45[facility] Eosinophils/100 WBC Auto (Bld)Ordered By: Saman Castrejon on 01-19-2023 Eosinophils/100 WBC (Bld)3.8 %.[facility] CompanyErythrocyte distribution width Auto (RBC) [Ratio]Ordered By: Saman Castrejon on 01-19-2023 Erythrocyte distribution width (RBC) [Ratio]14.8 %11.9-15.3FKettering Health DaytonGlobulin Calc (S) [Mass/Vol]Ordered By: Saman Castrejon on 01-19-2023 Globulin (S) [Mass/Vol]3.6 g/dLRegency Hospital CompanyGlucose [Mass/volume] in Serum or PlasmaOrdered By: Saman Castrejon on 44-46-1463Buyfiso [Mass/Vol]95 mg/rW71-531VnyeutnxiRegency Hospital CompanyComment on above:ADA recommended reference rangeRandom Glucose Reference Range is dependent on time and content of last meal. Glucose of more than 200 mg/dL in a nonstressed, ambulatory subject supports the diagnosisof Diabetes Mellitus.Hematocrit Auto (Bld) [Volume fraction]Ordered By: Saman Castrejon on 86-74-5323Acunqaasqb (Bld) [Volume fraction]43.6 %34.0-46.4FKettering Health DaytonHemoglobin [Mass/volume] in BloodOrdered By: Saman Castrejon on 91-22-5382Chtsmszhix (Bld) [Mass/Vol]14.4 g/dL11.8-15.4FKettering Health DaytonLeukocytes [#/volume] corrected for nucleated erythrocytes in Blood by Automated coun Ordered By: Saman Castrejon on 66-35-4462PYU corrected for nucl RBC Auto (Bld) [#/Vol]4.3 10*3/uL3.8-11.6FKettering Health DaytonLymphocytes Auto (Bld) [#/Vol]Ordered By: Saman Castrejon on 38-18-1674Bpnmewhpomf (Bld) [#/Vol]1.2 10*3/uL1.00-4.8[facility] CompanyLymphocytes/100 WBC Auto (Bld) Ordered By: Saman Castrejon on 64-32-0602Yshlpajcxyf/100 WBC (Bld)28.8 %.[facility] HospitalH Auto (RBC) [Entitic mass]Ordered By: Saman Castrejon on 93-28-7043HRA (RBC) [Entitic mass]29.8 pg24.7-34.3FOhio State Health SystemHC Auto (RBC) [Mass/Vol]Ordered By: Saman Castrejon on 31-91-9747GTAJ (RBC) [Mass/Vol]33.1 g/dL32.0-35.0[facility] CompanyMCV Auto (RBC) [Entitic vol]Ordered By: Saman Tobiassain on 20-29-0974XYM (RBC) [Entitic vol]90.0 xW66-634DrimwacpmRegency Hospital CompanyMonocytes Auto (Bld) [#/Vol]Ordered By: Saman Cash on 32-77-1104Smjiwamdi (Bld) [#/Vol]0.3 10*3/uL0.0-0.8[facility] CompanyMonocytes/100 WBC Auto (Bld)Ordered By: Saman Tobiassain on 39-14-7195Jekuijlkh/100 WBC (Bld)6.4 %.[facility] Neutrophils Auto (Bld) [#/Vol]Ordered By: Saman Tobiassain on 37-77-1675Mvxumxnpyuu (Bld) [#/Vol]2.6 10*3/uL1.8-7.7FKettering Health DaytonNeutrophils/100 WBC Auto (Bld)Ordered By: Saman Tobiassain on 19-38-8365Qjmkwsuazrm/100 WBC (Bld) 60.5 %.[facility] CompanyNo Panel InformationOrdered By: Saman Castrejon on 01-12-2449Fkjjgfvdz GFR (CKD-EPI)> 60.0 mL/MinRegency Hospital CompanyPharmacy Creatinine Clearance (ChemN/AFKettering Health DaytonNucleated erythrocytes [Presence] in Blood by Automated countOrdered By: Smaan Tobiassain on 37-72-0272Sofrlmest RBC Auto Ql (Bld)0.4 /100{WBC}0-0.5FKettering Health DaytonPlatelet mean volume Auto (Bld) [Entitic vol]Ordered By: Saman Tobiassain on 75-04-6736Ccddjomk mean volume (Bld) [Entitic vol]10.3 fL 6.3-10.7FKettering Health DaytonPlatelets Auto (Bld) [#/Vol]Ordered By: Samantheron TobiasCash on 84-30-8372Qcphqqakn (Bld) [#/Vol]199 10*3/aT683-647JibrtizipRegency Hospital CompanyPotassium [Moles/volume] in Serum or PlasmaOrdered By: Saman Tobiassain on 33-99-8648Mgpzcjqwm [Moles/Vol]4.2 mmol/L3.5-5.1FKettering Health DaytonProtein [Mass/volume] in Serum or PlasmaOrdered By: Saman Castrejon on 45-63-1677Ylufxds [Mass/Vol]7.5 g/dL6.4-8.9Reg[facility] CompanyRBC Auto (Bld) [#/Vol]Ordered By: Saman Castrejon on 76-51-4400LPQ (Bld) [#/Vol]4.85 10*6/uL3.60-5.00Wexner Medical Centererum or plasma albumin/globulin mass ratioOrdered By: Saman Castrejon on 01-19-2023 Albumin/Globulin [Mass ratio]1.1 {ratio}[facility] Medical Centererum or plasma anion gap determinationOrdered By: Saman Castrejon on 56-84-2163Ztaba gap [Moles/Vol]10.1 mmol/L6.0-15.0[facility] Medical Centererum or plasma high density lipoprotein (HDL) cholesterol measurementOrdered By: Saman Castrejon on 86-82-8122Tncynczeucx in HDL [Mass/Vol]45 mg/hW07-17ThtytyqktRegency Hospital CompanyComment on above:HDL CHOL ATP-III CLASSIFICATION Cardiovascular RiskHDL > or equal to 60 mg/dL LOWHDL < 40 mg/dL HIGHSerum or plasma total cholesterol/high density lipoprotein (HDL) cholesterol mass ratOrdered By: Saman Castrejon on 61-16-7259Agnyehicgrk.total/Cholesterol in HDL [Mass ratio]3.1 {ratio}<5.0W[facility]ner Medical Centerodium [Moles/volume] in Serum or PlasmaOrdered By: Saman Castrejon on 20-90-7546Sindkp [Moles/Vol]140 mmol/C389-889 [facility] CompanyThyrotropin [Units/volume] in Serum or Plasma Ordered By: Saman Castrejon on 69-98-2943QVY Qn3.47 m[IU]/L0.45-5.33[facility] CompanyTriglyceride [Mass/volume] in Serum or PlasmaOrdered By: Saman Castrejon on 54-86-0144Giogdshshyol [Mass/Vol]107 mg/dL0-149[facility] CompanyComment on above:TRIG ATP III CLASSIFICATIONTRIG less than 150 mg/dL NormalTRIG 150-199 mg/dL Borderline highTRIG 200-500 mg/dL High TRIG greater than 500 mg/dL Very highStandard traceable to the Center for Disease Conrtrol and Prevention (CDC) test method.Urea nitrogen [Mass/volume] in Serum or PlasmaOrdered By: Saman Castrejon on 82-81-3633Dtfm nitrogen [Mass/Vol]22 mg/dL7-25[facility] CompanyWBC Auto (Bld) [#/Vol]Ordered By: Saman Castrejon on 66-69-7516EBH (Bld) [#/Vol]4.3 10*3/uL3.8-11.6FKettering Health DaytonProgress Noteson 97-20-3162Qpvyacckpeesw Authentication Interface Message TextEMERGENCY TRIAGE, TREAT AND TRANSPORT (ET3) DOCUMENTATION OF TELEHEALTH VISIT Date / Time: 10/18/2021 / 11:30 Name: Jaclyn An : 1945 SSN: (Not on file) [facility] [x] Verbal consent obtained [] Implied [...] stroke. No CP or SOB. EMS reports [place] Stroke Scale is negative. Pt would like [...] right sided visual field disturbance with EMS [place] Stroke Scale negative. 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 such as an acute [...] Disposition Reported: Same ET3 Encounter Completed by: Essie Walden [facility] CHEMISTRYOrdered By: SYSTEM SYSTEM on 10-57-1005Cwaqh gap [Moles/Vol]14 mmol/L Normal6 - 16 mEq/LFTMC RemisolCalcium [Mass/Vol]9.5 mg/dLNormal8.9 - 11.1 mg/dL [facility] RemisolChloride [Moles/Vol]103 mmol/CMmlyar989 - 111 mmol/LFTMC Remisol Cholesterol [Mass/Vol]133 mg/rWNxhumr462 - 200 mg/dLFTMC RemisolCholesterol in HDL [Mass/Vol]41 mg/dLInvalid Interpretation CodeFTMC RemisolCholesterol in LDL [Mass/Vol]71 mg/dLNormal<=129mg/dLFTMC RemisolCholesterol in VLDL [Mass/Vol]27 mg/dLNormal7 - 40 mg/dLFTMC RemisolCO2 [Moles/Vol]24 mmol/NKhlugy19 - 31 mmol/L [facility] RemisolCreatinine [Mass/Vol]1.0 mg/dLNormal0.5 - 1.3 mg/dLFTMC Remisol GFR/1.73 sq M.predicted among blacks MDRD (S/P/Bld) [Vol rate/Area]mL/min/1.73 x2Ksugdr>=59mL/min/1.73 m2[facility] Chem SGFR/1.73 sq M.predicted among non-blacks MDRD (S/P/Bld) [Vol rate/Area]54 mL/min/1.73 m2Low>=59mL/min/1.73 m2[facility] Chem S Glucose [Mass/Vol]98 mg/jLAuisdz08 - 199 mg/dLFTMC RemisolPotassium [Moles/Vol] 4.4 mmol/LNormal3.5 - 5.3 mmol/LFTMC RemisolSodium [Moles/Vol]137 mmol/LNormal 135 - 145 mmol/LFTMC RemisolTriglyceride [Mass/Vol]136 mg/dLNormal<=149mg/dLFTMC RemisolTroponin I.cardiac [Mass/Vol]13.60 pg/qKHziumy63.10 - 27.10 pg/mLFTMC RemisolUrea nitrogen [Mass/Vol]24 mg/dLHigh5 - 21 mg/dLFTMC RemisolUrea nitrogen/Creatinine [Mass ratio]24 mg/flPmfj45 - 20[facility] RemisolCHEMISTRYOrdered By: Rafael Ruiz on 28-35-0075CaI8e (Bld) [Mass fraction]5.8 %Normal<=5.9% [facility] ChemAutoSSCOAGULATIONOrdered By: Princess Cali on 97-86-8133cWZQ Coag (PPP) [Time]29.7 kLkzqyw13.1 - 36.5 second(s)[facility] Auto CoagINR Coag (PPP) [Relative time]1.0 {INR}Invalid Interpretation CodeFTMC Auto CoagPT Coag (PPP) [Time]11.5 wXvxboc17.2 - 12.9 second(s)[facility] Auto CoagHEMATOLOGYOrdered By: SYSTEM SYSTEM on 73-64-5083Avmoeqves/100 WBC (Bld)0.7 %Normal0.0 - 2.0 %[facility] HemeAutoSSBasophils/Leukocytes Auto (Bld) [Pure # fraction]0.0 E9/LNormal0.0 - 0.2 E9/LFTMC HemeAutoSSEosinophils/100 WBC (Bld)2.5 %Normal0.0 - 8.0 %[facility] HemeAutoSSEosinophils/Leukocytes Auto (Bld) [Pure # fraction]0.2 E9/LNormal0.0 - 0.5 E9/LFTMC HemeAutoSSLymphocytes/100 WBC (Bld)29.3 %Fhbyhh51.0 - 50.0 %[facility] HemeAutoSSLymphocytes/Leukocytes Auto (Bld) [Pure # fraction]1.9 E9/LNormal1.0 - 4.0 E9/LFTMC HemeAutoSSMonocytes/100 WBC (Bld)9.1 %Normal4.0 - 14.0 %[facility] HemeAutoSSMonocytes/Leukocytes Auto (Bld) [Pure # fraction]0.6 E9/LNormal0.2 - 1.0 E9/LFTMC HemeAutoSSNeutrophils/100 WBC (Bld)58.4 %Hbqnpb12.0 - 75.0 %[facility] HemeAutoSSNeutrophils/Leukocytes Auto (Bld) [Pure # fraction]3.8 E9/LNormal2.0 - 7.5 E9/LFTMC HemeAutoSSHEMATOLOGYOrdered By: Polly Alexander on 10-18-2021 Erythrocyte distribution width (RBC) [Ratio]14.7 %High10.9 - 14.2 %[facility] HemeAutoSSHematocrit (Bld) [Volume fraction]45.3 %Ijqauy59.0 - 46.0 %[facility] HemeAutoSSHemoglobin (Bld) [Mass/Vol]14.8 g/jVEgqucd94.0 - 16.0 gm/dLFTMC HemeAutoSSMCH (RBC) [Entitic mass]29.0 jvBlrrid39.0 - 34.0 pgFTMC HemeAutoSSMCHC (RBC) [Mass/Vol]32.6 g/mGQolnsn69.4 - 36.0 gm/dLFTMC HemeAutoSSMCV (RBC) [Entitic vol]89.0 qZUmfrmd81.0 - 100.0 fLFTMC HemeAutoSSPlatelet mean volume (Bld) [Entitic vol]9.0 fLNormal6.4 - 10.8 fLFTMC HemeAutoSSPlatelets (Bld) [#/Vol]172.0 E9/ZBntzdg442.0 - 500.0 E9/LFTMC HemeAutoSSRBC (Bld) [#/Vol]5.1 E12/LNormal4.3 - 5.9 E12/LFTMC HemeAutoSSWBC corrected for nucl RBC Auto (Bld) [#/Vol]6.5 E9/LNormal4.0 - 11.0 E9/[facility] HemeAutoSSURINALYSISOrdered By: Cira Ray on [id number] Ql (U)Negative (10/18/21 1:48 PM)NormalNegativeTHE [facility] UA Auto SSClarity (U)Clear (10/18/21 1:48 PM)NormalClearFHARMON [facility]OR[facility] [place] UA Auto SSColor (U)Yellow (10/18/21 1:48 PM)NormalYellowFT UA Auto SSEpithelial cells.squamous LM.HPF (Urine sed) [#/Area]0-2 /HPFNormal0-2/HPFTHE [facility] [place] UA Auto SSGlucose Test strip (U) [Mass/Vol]Negative (10/18/21 1:48 PM)NormalNegativeTHE [facility] UA Auto SSHemoglobin Ql (U)Negative (10/18/21 1:48 PM)NormalNegativeTHE [facility] UA Auto SSKetones (U) [Mass/Vol]Negative (10/18/21 1:48 PM)NormalNegativeTHE [facility] [place] UA Auto SSLithium.plasma/[place].RBC (Bld) [Mass ratio]0-3 /HPFNormal0-3/HPFFT UA Auto SSNitrite Ql (U)Negative (10/18/21 1:48 PM)NormalNegativeTHE [facility] UA Auto SSpH (U)6.5 *NA* (10/18/21 1:48 PM)Invalid Interpretation Code5.0 - 9.0[facility] UA Auto SSProtein (U) [Mass/Vol]Negative (10/18/21 1:48 PM)NormalNegativeTHE [facility] UA Auto SSSpecific gravity (U) [Rel density] 1.010 *NA* (10/18/21 1:48 PM)Invalid Interpretation Code1.005 - 1.030FT UA Auto SSUA Spec DescClean Catch (10/18/21 1:48 PM)NormalTHE [facility] UA Auto SSUrobilinogen Qn (U)0.5883793 {Zach'U}/dLNormal0.0 - 1.0 EU/dLFT UA Auto SSWBC Auto Ql (U)Negative (10/18/21 1:48 PM)NormalNegativeTHE [facility] UA Auto SSWBC LM.HPF (Urine sed) [#/Area]0-5 /HPFNormal0-5/HPFTHE [facility] UA Auto SS Vital Signs Date TimeVital SignValuePerforming FlxuxogcnUkvdvvsz04-64-4130 14:25-0400Body qzbegr234.4 cmFredric Turbocoating DO Work Phone: [facility] HospitalGegidwxruv84-24-2044 14:25-0400Body mass index (BMI) [Ratio]61.91 kg/q5Wmcrshf Turbocoating DO Work Phone: 1(660)[facility]-[address] [address]Bmoxftblaq35-67-8445 14:25-0400Body tbkarm954.79 kgFreddeaconess hospital Turbocoating DO Work Phone: 1(898)[facility]-8386[facility] HospitalZlfteomryg45-28-8360 14:25-0400Diastolic blood wfloxwqk72 mm[Hg]Jimmie Itzkowitz DO Work Phone: [facility] HospitalMyqlsxtqrm18-44-6523 14:25-0400Systolic blood tsqagjzc358 mm[Hg]Jimmie Itzkowitz DO Work Phone: [facility] HospitalVjywlufqct92-33-8962 21:27-0400Body temperature 97.7 [degF]Kaylinn Dokken [facility]07-13-2024 21:27-0400 Diastolic blood icjidctb60 mm[Hg]Kaylinn Dokken [facility]07-13-2024 21:27-0400Heart rate82 /minKaylinn Dokken [facility]07-13-2024 21:27-0400 Respiratory rate16 /minKaylinn Dokken [facility]07-13-2024 21:27-4267LeC1% (BldA) [Mass fraction]95 %Kaylinn Dokken [facility]07-13-2024 21:27-0400 Systolic blood hhpjigwt415 mm[Hg]Muriel Le [facility]08-01-2022 09:00-0400 Hourly RoundMarlyn Grande [facility]08-01-2022 09:00-0400 Promise to ReturnSdeandre Grande [address] [place], [place] [address]-01-2022 08:30-8257BqC2% (BldA) [Mass fraction]98 %Dilip Grande [facility]08-01-2022 08:00-0400 Hourly RoundMarlyn Grande [facility]08-01-2022 08:00-0400 Promise to ReturnSdeandre Grande [facility]08-01-2022 07:48-0400Body narzjrenoiy19.06 [degF]Dilip Grande [facility]08-01-2022 07:48-0400 Diastolic blood mymlpurp95 mm[Hg]Dilip Grande [facility]08-01-2022 07:48-0400Heart rate75 /minSdeandre Grande [facility]08-01-2022 07:48-0400Mean blood mm[Hg]Dilip Grande [facility]08-01-2022 07:48-0579BqU3% (BldA) [Mass fraction]98 %Dilip Grande [facility]08-01-2022 07:48-0400 Systolic blood clajuusq636 mm[Hg]Dilip Grande [facility]08-01-2022 07:00-0400 Hourly RoundingSdeandre Grande [facility]08-01-2022 07:00-0400 Promise to ReturnSdeandre Grande [address] [place], [place] [address]-01-2022 04:00-0400Body tfndqhqoiaw13.52 [degF]Dilip Grande [address] [place], [place] 1209[address]-01-2022 04:00-0400 Diastolic blood ntzutmmn31 mm[Hg]Dilip Grande [address] [place], [place] 1209508-01-2022 04:00-0400Mean blood juzskjrt21 mm[Hg]Dilip Grande [address] [place], [place] 1209508-01-2022 04:00-0400 Respiratory rate18 /minSdeandre Grande [address] [place], [place] 120[address]508-01-2022 04:00-3651FmH1% (BldA) [Mass fraction]97 %Dilip Grande [facility]08-01-2022 04:00-0400 Systolic blood krziniyk506 mm[Hg]Dilip Grande [facility]07-31-2022 23:34-0400Blood Pressure LocationSdeandre Grande [address] [place], [place] 120[address]507-31-2022 23:34-0400Body prtguurhvwn38.06 [degF]Dilip Grande [address] [place], [place] 120[address]-31-2022 23:34-0400 BP/Pulse Patient PositionSdeandre Grande [facility]07-31-2022 23:34-0400 Diastolic blood mm[Hg]Dilip Grande [facility]07-31-2022 23:34-0400Heart rate72 /Jmaes Grande [facility]07-31-2022 23:34-0400Mean blood qqmbluph76 mm[Hg]Dilip Grande [facility]07-31-2022 23:34-0400 Respiratory rate17 /James Grande [facility]07-31-2022 23:34-0400 Systolic blood cnxahjnh199 mm[Hg]Dilip Grande [facility]07-31-2022 22:00-0400Heart rate65 /James Grande [facility]07-31-2022 22:00-0400Mean blood mupewmov41 mm[Hg]Dilip Grande [facility]07-31-2022 22:00-0400 Respiratory rate20 /James Grande [facility]07-31-2022 20:42-0400Heart rate84 /James Grande [facility]07-31-2022 20:42-0400Mean blood azjnsowm11 mm[Hg]Dilip Grande [facility]07-31-2022 17:30-0400Heart rate70 /James Grande [facility]07-31-2022 17:30-0400Mean blood tlcentzw485 mm[Hg]Dilip Grande [address] [place], [place] [address]-31-2022 15:45-0400Blood Pressure LocationSdeandre Grande [facility]07-31-2022 14:00-0400 Respiratory rate18 /James Grande [address] [place], [place] [address]507-31-2022 13:14-0400gluc 91 mg/dLSdeandre Grande [facility]07-31-2022 13:14-0400gluc Dilip Grande [facility]07-31-2022 12:47-0400gluc 91 mg/dLSdeandre Grande [facility]07-31-2022 12:42-0400Body nyexafeyoha47.42 [degF]Dilip Grande [facility] Encounters Encounter DateEncounter TypeCare ProviderFacilityStart: 10-08-2024 End: 34-80-9044Dhfdqs flowsheetShubhamXuehuile Urvsahi [employer] Work Phone: noMS CI AUDStart: 10-08-2024 End: 24-72-0981Qrdvvd flowsheetAldermore Bank plc Urvashi [employer] Work Phone: noMS CI AUDStart: 10-08-2024 End: 78-02-9376Maseferl SupportDeDigital Bridge Communications Corp.yuliya Landin [employer] Work Phone: noMS CI AUDComment on above:Sensorineural hearing loss, bilateral (Primary Dx)Start: 07-12-2024 End: 69-38-3182ztxeizawclNypzaprt Family Health Work Phone: [facility] Work Phone: Start: 07-12-2024 End: 25-00-6405Zpkpangz ReferredSerChesapeake Regional Medical Center Work Phone: [facility]-Lab [facility] [place] Work Phone: Start: 07-12-2024 End: 86-79-5297Ldhezs outpatient new 60 minutesFredric Martín Glover DO Work Phone: noms ST GENSComment on above:Abnormal finding on breast imaging (Primary Dx)Start: 07-12-2024 End: 46-51-5941plfrykcmngWXCJHUA Martín KHOURYZKOWITiara AvailableStart: 07-03-2024 End: 11-80-2640Fwxriuv encounter procedureServices [facility] Work Phone: [facility] Work Phone: Start: 07-03-2024 End: 86-61-8491lhmorpgvreUvfoskip Family Health Work Phone: [facility] Work Phone: Start: 03-15-2024 End: 64-35-0635Fjbhehehf Result EncounterShorty Fraser MD Work Phone: noms External Department UnsolicitedStart: 03-15-2024 End: 35-59-1678Lhtuuxmll Result EncounterShorty Fraser MD Work Phone: noms External Department UnsolicitedStart: 03-07-2024 End: 38-06-4828Hexajzdhs Result EncounterShorty Fraser MD Work Phone: noms External Department UnsolicitedStart: 03-07-2024 End: 74-35-5736Njfupjomm Result EncounterShorty Fraser MD Work Phone: noms External Department UnsolicitedStart: 03-06-2024 End: 75-78-5472Liyvnmcfy Result EncounterShorty Fraser MD Work Phone: noms External Department UnsolicitedStart: 03-06-2024 End: 37-42-3426Oezkcytfu Result EncounterShorty Fraser MD Work Phone: noms External Department UnsolicitedStart: 02-23-2024 End: 06-27-4011Kieysahkvt and management of [facility] Facility:MCStart: 11-22-2023 End: 12-23-4316Yiikydl encounter procedureServices [facility] Work Phone: [facility]-Ultrasound Cntr for Breast CarStart: 11-22-2023 End: 98-76-8766whhcoihqasMkonrrrx Family Health Work Phone: [facility] Work Phone: Start: 10-01-2023 End: 82-17-9186Osejcjpmd department patient visitMuriel Le [facility] Start: 01-19-2023 End: 72-13-7453aaztenpwxaDE Charles Mercado Work Phone: [facility] Work Phone: Start: 01-19-2023 End: 73-45-4518Lcugkpea Referred Charles Mercado Work Phone: [facility] ServicesStart: 00-26-6429rzhgvawdvaFPPEORM PROVIDERFacility:METROHealthStart: 10-18-2021 End: 42-47-2985DcsebouzggkTovequ E. Ross [facility] Procedures DateProcedureProcedure DetailPerforming ClinicianStart: 20-56-7105AIUNDGDH FUNCTION TESTSClary Landin [facility] Work Phone: start: 19-57-3874Qasvcdjqd mammographySerChesapeake Regional Medical Center Work Phone: Start: 85-65-6157Hetdksaplofbfcm of bilateral breasts Services [facility] Work Phone: Start: 96-79-0927HPL BASIC METABOLIC PANELShorty Fraser MD Work Phone: Start: 42-16-0552BJN CBC WITH AUTO DIFFRugen Theron Fraser MD Work Phone: Start: 57-04-4822WDM PRO BNPShorty Fraser MD Work Phone: Start: 16-90-7687VNK BASIC METABOLIC PANELShorty Fraser MD Work Phone: Start: 77-08-5281NAB CBC WITH AUTO DIFFRugen Theron Fraser MD Work Phone: [facility] Aleksandr Grande Plan of Treatment DateCare ActivityDetailAuthorStart: 10-09-2024 End: 71-85-4549Ujbcuiv encounter ybluwqgkh24/22/2025 8:10 AM EDT Office Visit [facility] [address] [place] [address] Michelle Casillas MD [address] [place] [address] [facility] CI ENTStart: 07-30-2024 End: 51-32-1576Sxsrknc encounter thcrlokuh57/12/2025 1:10 PM EDT Office Visit [facility] [place] [address] [place] [phone] Michelle Casillas MD [address] [place] [address] [facility] NORWALKStart: 07-27-2024 End: 90-51-2640Xqaglkrt Agcoocl2707/27/2024 1:00 PM EDT Clinical Support [facility] [address] [place] [phone] Clary Fay, [facility] [address] [facility] [place] [address] [facility]UDIOLOGYGlucose measurement estimated from glycated hemoglobinHCA [facility] Immunizations Immunization DateImmunizationNotesCare TvayqqudCgwgqowu12-97-2709xwmgzujym, high dose seasonal, preservative-freeSasonny Grande [facility] Payers DatePayer CategoryPayerPolicy [id number]-[id number] [id number] (Managed Care)[employer] MEDICARE [id number] Health [id number] 2018Medicaid[place]ICAID [place] [id number] [id number] .1.583389.3.57[id number] .1.356057.3.57[id number] .1.527572.3.57[id number] 2.840.1.944299.3.57[id number] 2.16.840.1.651754.3.57[id number] 2.0.1.855385.3.57[id number] 2.16.840.1.433171.3.57[id number] 2.840.1.607064.3.57[id number] 2.0.1.687676.3.57[id number] 2.0.1.129347.3.57[id number] 2.840.1.413122.3.579.2.1259UnknownHCAP/HFA/FAP [id number] 84d55etq-43k6-4p30-l53z-[id number] 2.840.1.1[id number] 2.0.1.010315.3.579.2.531 [id number] 2.840.1.519405.3.579.2.531 Social History DateTypeDetailFacilityTobaccoUnknown if ever smokedWright-Patterson Medical Center Comment on above:deniesStart: 60-05-7358Jhk Assigned At [facility]tart: 25-56-5884Rwg Assigned At [facility] HospitalT[facility]aure[facility] smoking statusNo Smoking Status EnteredWright-Patterson Medical CenterTobacc smoking status NHISTobacco smoking consumption unknownNOFL HealthcareStart: 54-72-9945Ypl assigned at birthNot on fileNOFL HealthcareStart: 07-04-2024 End: 08-05-6557YudFujymr (finding)[facility] Centertart: 56-48-2348Rpuzqlw smoking status NHISNever smoked tobaccoLOGAN REGIONAL [facility]ITAL Healthcare Work Phone: Start: 09-56-9479Njymhtd use and exposureSmokeless tobacco non-userNOFL HealthcareStart: 57-22-3180Zggufpcae beverage intake Lifetime non-drinker (finding)[facility] HealthcareStart: 82-78-1100Hryxihh of Social functionNOMissouri Rehabilitation Center Functional Status MeexEyrixdjgzlCsocarDlcsdynk75-48-1708Cycgabbvdx StatusN/AFisher - [facility] HospitalYginep71-97-9638Ujrflcxblp StatusNoBeaumont - [facility]07-31-2022 Functional StatusBeaumont - [facility] Clinical Notes 10-18-2021 to 10-08-2024 Note Date & PvqfFoauFjqmftyo48-15-3982 History of Present illness Narrative* Clary Fay, CCC-A - 10/08/2024 8:00 AM EDT History: Pt was referred to ENT because of hearing loss. Pt states her left ear is blocked with wax. Pt was fit with a BTE hearing aid for her right ear about 11 years ago. Pt states she used to be able to hear on the phone with her left ear but she cannot anymore. Pt denies tinnitus. Pt wants hearing aids and has [facility] Dual Complete Insurance. Otoscopic Exam: Ear canal clear and TM intact AU Pure Tone Audiometry Right Ear: Severe to profound sensorineural hearing loss Left Ear: Severe to profound sensorineural hearing loss Speech Audiometry Right SRT = 95 dB and word discrimination score at 105 dBHL = 40% Left SRT = 90 dB and word discrimination score at 100 dBHL = 40% Tympanometry Right Ear: Type A tympanogram Left Ear: Type As tympanogram Hearing Aid: No sound from current aid. Ear mold is clogged with wax. Cleaned and re-tubed ear mold and changed battery. Aid now works and pt is hearing better. Pt needs to find a [facility]'s Hearing provider for new hearing aids. [facility] Hearing phone number is [phone] documented in this encounterProgress West HospitalLrwflscvsu55-43-2595 History of Present illness Narrative* Jimmie Glover, DO - 07/12/2024 2:15 PM EDT Images from the original note were not included. Jaclyn An 1945 Jaclyn An is a 79 y.o. female presents with chief complaint of Rt. breast suspicious mamms (Pt states she has bleeding sores on right breast and lummp was found. She is wanted to have both breasts removed due to mother having breast cancer and passing away in her 30's.) HPI: HPI Jaclyn went for a routine mammogram and was referred to our office due to sores on her breast that bleed. The sores have been present for 2 weeks . She does not touch her breast SUBJECTIVE: MEDICATIONS: ALLERGIES Current Outpatient Medications Medication Instructions acetaminophen (TYLENOL) 325 mg, Every 6 hours PRN albuterol (2.5 MG/3ML) 0.083% nebulizer solution ammonium lactate (Lac-Hydrin) 12 % lotion aspirin 81 mg, Daily atorvastatin (Lipitor) 40 MG tablet baclofen (Lioresal) 10 MG tablet calcium carbonate (TUMS) 500 mg, Daily Eliquis 5 MG tablet ergocalciferol (Vitamin D2) 1.25 MG (81687 UT) capsule furosemide (Lasix) 20 MG tablet levothyroxine (Synthroid, Levoxyl) 25 MCG tablet nystatin (Mycostatin) 987205 UNIT/GM powder polyvinyl alcohol-povidone PF (Refresh) 1.4-0.6 % ophthalmic solution Every 6 hours Zoloft 50 MG tablet Daily RT Allergies Allergen Reactions Ampicillin Anaphylaxis PAST MEDICAL HISTORY: SOCIAL HISTORY SURGICAL HISTORY: Past Medical History: Diagnosis Date Acute kidney failure Asthma Atrial fibrillation (CMS/HCC) Breast lump Depression (CMS/HCC) Dysphagia GERD (gastroesophageal reflux disease) Hearing loss Hypercholesterolemia (CMS/HCC) Hypertension (CMS/HCC) Hypothyroidism (acquired) (CMS/HCC) Muscle weakness Obesity Osteoarthritis UTI (urinary tract infection) Venous insufficiency Vitamin D deficiency Weakness Social History Tobacco Use Smoking status: Never Smokeless tobacco: Never Substance Use Topics Alcohol use: Never Drug use: Never Past Surgical History: Procedure Laterality Date CHOLECYSTECTOMY DILATION AND CURETTAGE OF UTERUS OTHER STRABISMUS SURGERY Ovary and falopian tube removal - Left side FAMILY HISTORY Family History Problem Relation Name Age of Onset Breast cancer Mother REVIEW OF SYMPTOMS: Review of Systems Constitutional: Negative for diaphoresis and unexpected weight change. HENT: Negative for hearing loss, tinnitus and voice change. Breasts: Positive for breast mass. Respiratory: Negative for shortness of breath. Cardiovascular: Positive for chest pain. Negative for palpitations. Musculoskeletal: Positive for arthralgias. Neurological: Negative for dizziness, seizures and headaches. All other systems reviewed and are negative. Hematological: Negative for adenopathy. Bruises/bleeds easily. OBJECTIVE: Visit Vitals BP 120/74 Ht 5' Wt 317 lb BMI 61.91 kg/m Smoking Status Never BSA 2.47 m Physical Exam HENT: Head: Normocephalic. Cardiovascular: Rate and Rhythm: Normal rate and regular rhythm. Pulmonary: Effort: Pulmonary effort is normal. Breath sounds: Normal breath sounds. Chest: Comments: The patient wheelchair bound and very difficult to examine. She states her breasts are GGG. The right breast has multiple scabs from scratching, the area around the nipple and going lateralthe skin is thickened and red with brownish drainage from multiple skin sores. The area was coveredwith an ABD. The left breast has no masses and appears more normal. Axillary palpation is nearly impossible. Abdominal: General: Abdomen is flat. Bowel sounds are normal. Palpations: Abdomen is soft. Skin: General: Skin is warm and dry. Neurological: Mental Status: She is alert. ASSESSMENT AND PLAN: Assessment/Plan Diagnoses and all orders for this visit: Abnormal finding on breast imaging The patient is difficult to get a good history or ROS from. She is wheel chair bound and morbidly obese. The right breast was covered with an ABD. Upon uncovering it the nipple and lateal skin has multiple scabs with erythema and thickening of the skin. BL Mamm's done 07/03/24 showed - The right breast demonstrates increased density involving the upperouter quadrants of the right breast with associated skin thickening. No definite mass. No architectural distortion. Rt Axillary US - Imaging of the right axilla demonstrated a benign-appearing lymph nodes. No sinister-appearing lymph The patient is not a candidate for MRI. I can't tell if the skin changes are from a chronic skin condition or breast cancer. With her permission I did a skin biopsy. Due to her obesity and size of her breast if she needs surgery she will need to be referred to a tertiary care center. We will contact the care center with the biopsy results. documented in this encounterProgress West HospitalCcodvinqif94-61-5255 Radiology Diagnostic study [facility] [place] [address] [place] [address] Ultrasound Report Signed Patient: Jaclyn An MR#: [id number] : 1945 Acct:[id number] Age/Sex: 79 / F ADM Date: 5 Loc: [place] Room: Type: [facility] Attending Dr: Shorty Fraser MD Ordering Provider: Shorty Fraser MD Date of Service: 07/03/24 MM/MM diagnostic mammo BI w/CAD: LESIONS ([id number]) US/US breast BI limited: LESIONS ON BREAST Copies to: Shorty Fraser MD~ CLINICAL DATA: Skin changes right breast with seeping. Follow-up possible fatnecrosis left breast Bilateral DIAGNOSTIC MAMMOGRAM - WITH TOMOSYNTHESIS AND CAD , bilateralLIMITED BREAST ULTRASOUND COMPARISON:Left breast ultrasound 11/22/2023 Tomosynthesis imaging was obtained using low-dose digital technique. This examination was reviewed with the aid of CAD. Additional ultrasound imaging was also obtained. Mammogram: The breasts are composed of scattered fibroglandular densities. No suspicious abnormality is seen involving the left breast. The right breast demonstrates increased density involving the upper outer quadrants of the right breast with associated skin thickening. No definite mass. No architectural distortion. Benign-appearing calcifications are seen within both breasts. 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 Ultrasound: Imaging of the right axilla demonstrated a benign-appearing lymph nodes. No sinister-appearing lymph node is seen to suggest metastatic disease. 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 Skin biopsy is recommended. The suspicious area of fat necrosis involving the left breast is not appreciatedon today's ultrasound. No definitive mammographic or ultrasound evidence of malignancy is seen within the left breast. RESULT CODE: 4c Suspicious Abnormality - Biopsy Moderate Suspicion DENSITY CODE: 2 (approximately 25-50% glandular) There are scattered areas of fibroglandular density. FOLLOW UP: BIO The false-negative rate of mammography is approximately 10-percent. Management of a palpable abnormality must be based on clinical grounds. Impression dictated by: Justo Devlin Jr., D.O.07/03/2024 2:48 PM Dictation Location: [facility] Tech: Vonda Kauffman; Alexus Aguirre Transcribed By: GABRIEL 07/03/24 1448 Dictated By: Justo Devlin Jr, DO 07/03/24 1443 Signed By: 07/03/24 1448 [facility]12-12-2024 NoteDischarge Summary Admission and Discharge Information Admit Date/Time:02/23/2024 17:40 Admitting Physician - Gage SANTOS MD Consulting Physician - Stefanie Abreu [...] members caring for her. Patient presented to [facility]23[facility]24 with complaints of swelling to lower [...] ultrasound was negative. She will follow-up with nephro elia as an outpatient. Given her severe hypoalbuminemia, [...] recommended for SNF. [facility] in [facility] condition. Procedure History C [...] -- Results Pending -- (more content not included)...[facility] CenterComment on above:Result Comment: Electronically Signed By: Kwesi RODRIGUEZ Gabby L\.br\Date and Time Signed: 02/29/24 19:05 EST\.br\Electronically Co-Signed By: Soren Moore DO\.br\Date and Time Co-Signed: 03/01/24 06:58 [id number] NoteProgress Note-Physician Subjective No overnight events. She is feeling [...] Low (02/28/24 06:01:00) Hct: 33.1 % Low (02/28/24:01:00) MCV: 89 fL (02/28/24 06:01:00) MCH: 30.2 pg (02/28/24 06:01:00) MCHC: 34 gm/dL (02/28/24 06:01:00) RDW: 15.3 % High (02/28/24 06:01:00) Platelet: 191 E9/L (02/28/24 06:01:00) MPV: 8.7 fL (02/28/24 06:01:00) Neutro Auto: 53.5 % (02/28/24 06:01:00) Lymph Auto: 25.9 % (02/28/24 06:01:00) Schuyler Auto: 9 % (02/28/24 06:01:00) Eos Auto: 11.1 % High (02/28/24 06:01:00) Basophil Auto: 0.5 % (02/28/24 06:01:00) Neutro Absolute: 2.2 E9/L (02/28/24 06:01:00) Lymph Absolute: 1.1 E9/L (02/28/24 06:01:00) Schuyler Absolute: 0.4 E9/L (02/28/24 06:01:00) Eos Absolute: [...] 27 mmol/L (02/28/24 06:01:00) AGAP: 6 mEq/L (02/28/24::00) Calcium Lvl: 7.6 mg/dL Low (02/28/24 06:01:00) Alk Phos: 102 Int._Unit/L High (02/28/24 06:01:00) ALT: 13 Int._Unit/L (02/28/24 06:01:00) AST: 19 Int._Unit/L (02/28/24 06:01:00) Total Protein: 4.6 gm/dL Low (02/28/24 06:01:00) Albumin Lvl: 1.8 gm/dL Low (02/28/24:01:00) Globulin: 2.8 gm/dL (02/28/24 06:01:00) A/G Ratio: [...] due to severe vit (more content not included)...[facility] Orthopedic CenterComment on above:Result Comment: Electronically Signed By: Jamaica Mosley CNP\.br\Date and Time Signed: 02/28/24 17:48 EST\.br\Electronically Co-Signed By: Stefanie Abreu MD\.br\Date and Time Co- Signed: 02/29/24 09:39 [id number] NoteProgress Note-Physician Assessment/Plan 1. TATYANA (acute kidney injury) (N17.9: Acute kidney failure, unspecified) Improved Creatinine down to 1.4 Nephrology consulted and following Secondary to UTI as well as C. difficile and poor oral intake Hold nephrotoxic drugs Ordered: [facility] Hospital Care/Day Straight Fwd 25 Minutes [id number] 2. ATN (acute tubular necrosis) (N17.0: Acute [...] TMAX: 36.5 ???C(Axillary) HR: 80(Monitored) RR: 16 BP:127/80 SpO2: 93% WT: 165.00 kg Intake & [...] (02/28/24 06:01:00) RBC: 3.7 E12/L Low (02/28/24 06::00) HGB: 11.2 gm/dL Low (02/28/24 06:01:00) Hct: 33.1 % Low (02/28/24 06::00) MCV: 89 fL (02/28/24 06::00) MCH: 30.2 pg (02/28/24 06::00) MCHC: 34 gm/dL (02/28/24 06:01:00) RDW: 15.3 % High (02/28/24 06:01:00) Platelet: 191 E9/L (02/28/24 06:01:00) MPV: 8.7 fL (02/28/24 06:01:00) Neutro Auto: 53.5 % (02/28/24 06:01:00) Lymph Auto: 25.9 % (02/28/24 06:01:00) Schuyler Auto: 9 % (02/28/24 06:01:00) Eos Auto: 11.1 % High (02/28/24 06::00) Basophil Auto: 0.5 % (02/28/24 06:01:00) Neutro Absolute: 2.2 E9/L (02/28/24 06:01:00) Lymph Absolute: 1.1 E9/L (02/28/24 06:01:00) Schuyler Absolute: 0.4 E9/L (02/28/24 06:01:00) Eos Absolute: 0.5 E9/L (02/28/24 06:01:00) Basophil Absolute: 0 E9/L (02/28/24 06:01:00) Glucose Lvl: 96 mg/dL (02/28/24 06:01:00) BUN: 68 mg/dL High (02/28/24 06:01:00) Creatinine: 1.4 mg/dL High (02/28/24 06:01:00) eGFR: 39 m (more content not included)...[facility] CenterComment on above:Result Comment: Electronically Signed By: Maxx Heath DO.br\Date and Time Signed: 02/28/24 13:55 [id number] NoteProgress Note-Physician Basic Information 78 y/o female admitted with BLE edema, weakness, TATYANA Assessment/Plan 1. TATYANA (acute kidney injury) (N17.9: Acute kidney failure, unspecified) - Mild improvement today - Cr 1.7, GFR 31 - Nephrology c/s - defer further work up to the nephrology team - Present on admit, likely secondary to UTI, C-diff, poor oral intake with use of LUPE - No history of CKD - Continue [...] BID ordered - CMP in am - [place] Lacer consult 13. Troponin level elevated (R79.89: Other [...] sclera clear ENMT: oral (more content not included)...[facility] CenterComment on above:Result Comment: Electronically Signed By: Ginna Junior\.br\Date and Time Signed: 02/26/2417:08 EST\.br\Electronically Co-Signed By: Soren Moore DO\.br\Date and Time Co-Signed: 02/27/24 17:28 [id number] Note Consultation Note Basic Information 78-year-old WF with history of morbid obesity, HTN, and HLD presented to the ED with complaint of BLE edema and weeping. She has been having diarrhea at home and tested positive for C. difficile. Lianna live alone at home and family members come to assist in her ADLs. She stated to staff that sheis no longer able to care for herself [...] 07:59:00) Lymph Auto: 24.6 % (02/27/24 07:59:00) Schuyler Auto: 10.8 % (02/27/24 07:59:00) Eos Auto: 11.2 % High (02/27/24 07:59:00) Basophil Auto: 0.5 % (02/27/24 07:59:00) Neutro Absolute: 2.1 E9/L (02/27/24 07:59:00) Lymph Absolute: 1 E9/L (02/27/24 07:59:00) Schuyler Absolute: 0.4 E9/L (02/27/24 07:59:00) Eos Absolute: [...] Severe hypoalbuminemia -This i (more content not included)...[facility] CenterComment on above:Result Comment: Electronically Signed By: Jamaica Mosley CNP\.br\Date and Time Signed: 02/27/24 12:01 EST\.br\Electronically Co-Signed By: Jamaica Mosley CNP\.br\Date and Time Co-Signed: 02/27/24 13:00 EST\.br\Electronically Co-Signed By: Stefanie Abreu MD\.br\Date and Time Co-Signed: 02/27/24 14:18 [id number] NoteProgress Note-Physician Assessment/Plan 1. TATYANA (acute kidney injury) (N17.9: Acute kidney failure, unspecified) - Not improving so far - Cr 1.8, GFR 29 today Will consult nephrology - Present on admit, likely secondary to UTI, C-diff, poor oral intake with use of LUPE - No history of CKD - Continue to hold lisinopril/nephrotoxic meds - Urinalysis positive - see UTI - Proteinuria noted along with high urine protein/creatinine ratio - Continue to check PVR and call with retention - Resume Gentle IVF at 75 ml/hr - BMP in AM [1] Ordered: Consult to Nephrology [facility] Hospital Care/Day High 50 Minutes [id number] 2. ATN (acute tubular necrosis) (N17.0: Acute kidney failure with tubular necrosis) - As above Ordered: Consult to Nephrology [facility] Care/Day High 50 Minutes 50174 3. Proteinuria (R80.9: Proteinuria, unspecified) - As above Ordered: Consult to Nephrology [facility] Care/Day High 50 Minutes [id number] 4. UTI (urinary tract infection) with pyuria (N39.0: Urinary tract infection, site not specified) - UA obtained with straight cath on evening 02/24/24 - Pos UTI noted today - start IVPB Rocephin daily - No concern for sepsis at this time [2] Ordered: Consult to Nephrology [facility] Care/Day High 50 Minutes 42892 5. Clostridium difficile diarrhea (A04.72: Enterocolitis due to Clostridium difficile, not specified as recurrent) - Pt started to have loose stools 2 days ago - C-diff ordered and obtained - resulted positive yesterday - Start Vanco PO QID - will need prolonged administration after Rocephin dosing is completed - Contact isolation [3] Ordered: Consult to Nephrology [facility] Care/Day High 50 Minutes 02428 6. Hypocalcemia (E83.51: Hypocalcemia) Continue plan as below from yesterday - Low normal (9.5) when corrected for albumin - Unclear etiology - Start Calcium Carb BID Ordered: Consult to Nephrology [facility] Care/Day High 50 Minutes 43793 7. General weakness (R53.1: Weakness) - PT/OT to evaluate for possible placement - Requires assist x 2, SNF recommended [4] Ordered: Consult to Nephrology [facility] Care/Day High 50 Minutes 61039 8. Physical deconditioning (R53.81: Other malaise) - As above Ordered: Consult to Nephrology [facility] Hospital Care/Day High 50 Minutes 56100 9. Hypothyroidism (E03.9: Hypothyroidism, unspecified) - Started on Levothyroxine 25mcg - Repeat TSH as an OP Ordered: Consult to Nephrology [facility] Care/Day High 50 Minutes 36340 10. Venous ulcer of leg (I83.009: Varicose [...] 02/24/24 unremarkable [5] Ordered: Consult to Nephrology [facility] Care/Day High 50 Minutes 98231 11. Hypoalbuminemia (E88.09: Other disorders of plasma-protein metabolism, not elsewhere classified) - Chronically low albumin likely contributing to LE edema - No further IV Albumin planned at this time. Push oral protein. - CMP in am - [place] Lacer consult [6] [facility] 53167 12. Troponin level elevated (R79.89: Other specified abnormal findings of blood chemistry) - Stable not likely acute ACS [facility] 50 Minutes 53151 13. Atrial fibrillation (I48.91: Unspecified atrial fibrillation) Rate controlled plan as below - Patient is currently in AF, was in AF when ECG done in 2021 - She has no recollection of this dx, nor does she take AC - Initiate Eliquis BID - does not require renal adjustment per pharmacy [7] Ordered: Consult to Nephrology [facility] Care/Day High 50 Minutes 73977 14. HTN - Hypertension (I10: Essential (primary) hypertension) - Lisinopril documented as outpatient- > will hold given #1 - Continue PRN IV Hydralazine [8] Ordered: Consult to Nephrology [facility] Care/Day High 50 Minutes 10187 15. Hypercholesterolemia (E78.00: Pure hypercholesterolemia, unspecified) - Statin Ordered: Consult to Nephrology [facility] Care/Day High 50 Minutes 15829 16. Morbid obesity (E66.01: Morbid (severe) obesity due to excess calories) - Advised diet and exercise Ordered: Consult to Nephrology [facility] Care/Day High 50 Minutes 42211 Orders: Basic Metabolic Panel eGFR Possible discharge tomorrow after nephrology sees the patient. Subjective Patient seen and examined at bedside. Patient was still having diffuse diarrhea. Otherwise no otherconcerns per the patient. Objective Vitals & (more content not included)...[facility] CenterComment on above:Result Comment: Electronically Signed By: Harjinder DASH, Dilip Abernathy.br\Date and Time Signed: 02/26/24 13:57 [id number] NoteProgress Note-Physician Basic Information 78 y/o female admitted with BLE edema, weakness, TATYANA Assessment/Plan Time of exam: 854 1. TATYANA (acute kidney injury) (N17.9: Acute kidney failure, unspecified) - Not improving so far - Cr 1.8, GFR 29 today - Present on admit, likely secondary to UTI, C-diff, poor oral intake with use of LUPE - No history of CKD - Continue to hold lisinopril/nephrotoxic meds - Urinalysis positive - see UTI - Proteinuria noted along with high urine protein/creatinine ratio - Consider nephrology consult on Tuesday - no-one reinforced ironworker over the weekend - Continue to check PVR and call with retention - Resume Gentle IVF at 75 ml/hr - BMP in AM Ordered: [facility] Care/Day Moderate 35 Minutes [id number] 2. ATN (acute tubular necrosis) (N17.0: Acute [...] oral protein. - CMP in am - [place] Lacer consult 12. Troponin level elevated (R79.89: Other specified abnormal findings of blood chemistry) - Chronically low albumin likely contributing to LE edema - No further IV Albumin planned at this time - Ensure BID - CMP in am - [place] Lacer consult - pending recommendations 13. Atrial fibrillation [...] Oral, Daily, Routine, Start date 02/26/24 6:30:00 EST,02/25/24 13:54:00 EST Sodium Chloride 0.9% intravenous solution 1,000 mL, 1,000 mL, IV, 75 mL/hr, for 1 dose(s), Stop date 02/25/24 10:12:00 EST, Routine, Start date 02/23/24 18:19:00 EST, 13.3 hour(s), Total volume (mL):1,000, 155 kg, 2.56, m2 vancomycin, 125 mg = 1 cap(s), Cap-IR, Oral, QID, Routine, Start date 02/25/24 13:00:00 EST, 02/25/24 10:44:00 EST CBC w/ Auto Diff Clostridium di (more content not included)...[facility] CenterComment on above:Result Comment: Electronically Signed By: Ginna Junior\.br\Date and Time Signed: 02/24/2414:07 EST\.br\Electronically Co-Signed By: Zoe SANTOS MD\.br\Date and Time Co-Signed: 02/24/2414:48 [id number] Note Progress Note-Physician Assessment/Plan 1. TATYANA (acute kidney injury) (N17.9: Acute kidney failure, unspecified) Present on admit, likely secondary to poor oral intake with use of LUPE No history of CKD Continue to hold [...] planned at this time CMP in am B[place] Lacer consult 6. Troponin level elevated (R79.89: Other [...] she take AC Initiate renally adjusted Eliquis ([id number] is high), would be poor candidate for [...] ???C(Axillary) TMAX: 36.7 ???C(Axillary) HR: 75(Monitored) RR: 16BP: 150/63 SpO2: 96% HT: 152 cm WT: [...] gm/dL (02/24/24 06:16:00) RD (more content not included)...[facility] CenterComment on above: Result Comment: Electronically Signed By: Ginna Junior\.br\Date and Time Signed: 02/24/2416:16 EST\.br\Electronically Co-Signed By: DANIELLE DASH, Zoe\.br\Date and Time Co-Signed: 02/24/2414:00 [id number] Hospital Discharge instructions Patient Education 10/01/2023 23:32:39 Shoulder Range of Motion Exercises Shoulder Range of Motion Exercises Shoulder range of motion (ROM) exercises are done to keep the shoulder moving freely or to increasemovement. They are recommended for people who have shoulder pain or stiffness or who are recoveringfrom a shoulder surgery. Ask your health care [...] side. Bend your arm to about a 90- degree angle (right angle) at the elbow, and [...] you at the level of your waist. Thewand should be pointing straight up and down [...] Over time, bring your arm up to x46-asozbt angle (right angle) out to the side. [...] provider. Document Revised: 04/27/2022 Document Reviewed: 04/27/2022 [email or web address] Patient Education 2022 [employer]. 10/01/2023 23:32:39 Cellulitis, Adult, Elza-zv-Rjci Cellulitis, Adult Cellulitis is a skin infection. [...] Follow these instructions at home: Medicines Take waoc-iyv-ufvjlyk and prescription medicines only as told by [...] provider. Document Revised: 12/17/2021 Document Reviewed: 12/17/2021 [email or web address] Patient Education 2022 [employer]. 10/01/2023 23:32:39 Arthritis, Dqpc-vv-Frex Arthritis Arthritis means joint pain. It can [...] Follow these instructions at home: Medicines Take svai-zar-srpsrul and prescription medicines only as told by [...] medicines, and putting cold or hot packs onthe joint. Follow your doctor's instructions about medicines, activity, exercises, and other home care treatments. This information is not intended to replace advice given to you by your health care provider. Make sure you discuss any questions you have with your health care provider. Document Revised: 12/15/2021 Document Reviewed: 12/15/2021 [email or web address] Patient Education 2022 [employer]. Follow Up Care 10/01/2023 20:55:48 With:Mark Hernandez Address: [address] [place] [address]- Business (1) When:10/04/2023 With:[facility] Address: [address] [place] [phone] Business (1) When:10/04/2023 Comments:Take the antibiotics as prescribed to you have completed the course. You can use the pain medication as prescribed as needed for pain. Please follow- up with orthopedics and your primary care doctor for further evaluation management. Please return to ED for any new or worsening symptoms. [facility]07-13-2024 NoteED Patient Education Note Infectious Disease Cellulitis, Adult [...] these instructions at home: Medicines ? Take wkjd-leh-kddoeme and prescription medicines only as told by your doctor. ? If you were prescribed an antibiotic medicine, take it as told by your doctor. Do not stop takingit even if you start to feel better. [...] provider. Document Revised: 12/17/2021 Document Reviewed: 12/17/2021 [email or web address] Patient Education ? 2022 [email or web address] Orthopedics Shoulder Range of Motion Exercises Shoulder range of motion (ROM) exercises are done to keep the shoulder moving freely or to increasemovement. They are recommended for people who have shoulder pain or stiffness or who are recoveringfrom a shoulder surgery. 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, unspecified shoulder) Orders: acetaminophen-hydrocodone, 1 tab(s), Tab, Oral, Once, Stop date 10/01/23 22:18:00 EDT, STAT, Start date 10/01/23 22:18:00 EDT acetaminophen-hydrocodone, 1 EA, Tab, Oral, Once, Stop date 10/01/23 23:14:00 EDT, STAT, Start date10/01/23 23:14:00 EDT doxycycline, 100 mg = 1 cap(s), Cap, Oral, Once, Stop date 10/01/23 23:14:00 EDT, STAT, Start date 10/01/23 23:14:00 EDT, 10/01/23 23:14:00 EDT doxycycline, 100 mg = 1 tab(s), Oral, q12hr, X 10 day(s), # 20 tab(s), Refills(s) 0, Pharmacy: [facility], 152, cm, 10/01/23 21:34:00 EDT, Height/Length Dosing, 155, kg, 10/01/23 21:34:00 EDT, Weight Dosing naproxen, 500 mg = 1 tab(s), Oral, BID, PRN for pain, # 20 tab(s), Refills(s) 0, Pharmacy: [facility], 152, cm, 10/01/23 21:34:00 EDT, Height/Length Dosing, 155, kg, 10/01/23 21:34:00 EDT,Weight Dosing Basic Metabolic Panel CBC w/ Auto Diff eGFR Hepatic Function Panel UA with Cult Rflx XR Shoulder Complete Left Diagnostic Tests Pending * UA with Cult Rflx 10/01/23 [facility]08-01-2022 Evaluation + Plan noteExtracted from: Title:Discharge NoteAuthor:CATRACHITO DASH, HasanDate:10/19/21 Discharge Diet(s): Regular ( 10/19/21 10:40:00) Prescriptions albuterol 0.083% Inh Madai 3 mL, 2.5 mg= 3 mL, Inhalation, QID, Still taking, not as prescribed: doesnot take as prescribed Check BMP in 3-5 [...] optmetrist in the next week Additional Instructions: [facility] Within 5 to [address] [place] [phone] Business (1) Additional Instructions: Eliceo Collado DO, SAUL Within [address] to [address], [place] [address]- Additional Instructions: Extracted from:Title:Consult Note- NeurologyAuthor:Rene TAMAYO, Nyasia ADate: 10/19/21 She describes 1-2 hours of decreased visual acuity in general. She describes no loss of vision, curtaining, homonymous hemianopic changes, Pain with eye movements, color desaturation, or any other visual symptoms concerning for a neurologic cause. Her vision has been normal ever since. I do not suspect a cerebrovascular cause for the mildly blurred vision episode. She has lower extremity weaknessbilaterally that she says is chronic and no worse than it was a day or a month ago. Some of that weakness might be due to body habitus and deconditioning. We could consider further workup of this asan outpatient in neurology clinic. No other recommendations [...] Atrial fibrillation (I48.91: Unspecified atrial fibrillation) Extracted from:Title:ED NoteAuthor:Milton Montague, Pina HDate:10/18/21 1. TIA (transient ischemic a ttack) (G45.9: [...] Basic Metabolic Panel CBC w/ Auto Diff [place] Stroke Scale Communication Order Physician to Nursing Continuous Pulse Oximetry CT Head or Brain w/o Contrast CVA/TIA Inclusion/Exclusion Criteria ECG 12 Lead Adult ED Cardiac Monitoring ED Physician consult Hospitalist for continued care eGFR HgbA1c Lipid Panel Oxygen Therapy PT & PTT Routine Capillary Glucose POC Saline Lock Insert Troponin 0 Hr. UA With Cult Reflex Vital Signs XR Chest Single View Extracted from:Title:Admission H & PAuthor:Dilip Grande MDDate:10/18/21 1. TIA (transient ischemic a ttack) (G45.9: [...] Signs Weight - DVT prophylaxis with Lovenox [facility]07-31-2022 Hospital Discharge instructions Follow Up Care 10/18/2021 12:38:43 With:follow up with your optmetrist in the next week Address:Unknown When: Unknown With:[facility] Address: [address] [place] [phone] Business (1) When:5 to 7 days With:Eliceo Collado DO, [facility] Address: [address], [place] [address]- When:2 to 4 weeks [facility] noteNo assessment information available [facility] Work Phone: Evaluation note* Diagnosis Abnormal finding on breast imaging- Primary [facility]* Diagnosis Sensorineural hearing loss, bilateral- Primary [facility] this [facility] Narrative No data available for this section [facility] No data available for this section [facility] Summary Purpose Family History No [...] FoundNo Family History Records Found Advance Directives No Advanced Directives Records Found Advance Directive Response Recorded Date/ Time Advance Directives No August 05 7:03am Chief Complaint and Reason for Visit Chief Complaint Morbid obesity Morbi d obesity;Hypercholesteremia Chief Complaint N64.4 Chief Complaint Admit Date open lesion July 03, 2024 1:1 8pm Additional Source Comments Care Team (unrecognized sect ion and content) Team Status: Inactive Member Role Status Dates Charles Mercado DO Attending Provider Active Team Status: Active Member Role Status Dates Services Family Health Primary Care Provider Active Team Status: Inactive Member Role Status Dates Services Family [facility] Primary Care Provider Active Start: November 22, 2023 End: November 21tyron Mercado DOAttending ProviderActiveStart: November 22, 2023 End: November 22, 2023Amalia Mancera DO RESReferring ProviderActiveStart: November 22, 2023 End: November 22, 2023 Team Status: Inactive Member Role Status Dates [facility] Primary Care Provider Active Start: July 03, 2024 End: July 03, 2024Savage Lorenzo ProviderActiveStart: July 03, 2024 End: July 03, 2024Team MemberRelationshipSpecialtyStart DateEnd Date Edwin Harmon DO [address] [facility] [place] [address] PCP - [facility]07/11/24 Team Status: Inactive Member Role Status Dates Jimmie Glover DO Attending Provider Active Start: July 12, 2024 End: July 12, 2024Team MemberRelationshipSpecialtyStart DateEnd Date Edwin Harmon DO [address] [facility] [place] [address] PCP - [facility]07/11/24Team MemberRelationshipSpecialtyStart DateEnd Date Edwin Harmon DO [address] [place] [address] [facility] - [facility]07/11/24 INFORMATION SOURCE (unrecogn ized section and content) DATE CREATED AUTHOR 03/19/2022 [employer] DATE CREATED AUTHOR AUTHOR'S ORGANIZ ATION 10/06/2023 [facility] DATE CREATED AUTHOR AUTHOR'S ORGANIZ ATION 11/05/2023 [facility] DATE CREATED AUTHOR AUTHOR'S ORGANIZ ATION 02/28/2024 [facility] DATE CREATED AUTHOR AUTHOR'S ORGANIZ ATION 02/29/2024 [facility] DATE CREATED AUTHOR AUTHOR'S ORGANIZ ATION 03/01/2024 [facility] DATE CREATED AUTHOR AUTHOR'S ORGANIZ ATION 2024 [facility] DATE CREATED AUTHOR AUTHOR'S ORGANIZ ATION 03/03/2024 [facility] DATE CREATED AUTHOR AUTHOR'S ORGANIZ ATION 03/04/2024 [facility] DATE CREATED AUTHOR AUTHOR'S ORGANIZ ATION 03/06/2024 [facility] DATE CREATED AUTHOR AUTHOR'S ORGANIZ ATION 07/26/2024 [facility] DATE CREATED AUTHOR AUTHOR'S ORGANIZ ATION 10/09/2024 [facility] EPIC Goals (unrecognized section and content) Goals may be documented in a n alternate section Reason for Visit (unrecogniz ed section and content) ReasonCommentsRt. breast suspicious mammsPt states she has bleeding sores on right breast and lummp was found. She is wanted to have both breasts removed due to mother having breast cancer and passing away in her 30's. FOR RECORDS PERTAINING TO PATIENTS WHO ARE [...] BE BASED ON THE PRIMARY CLINICAL RECORDS. [employer] provides no warranty or guarantee of the accuracy or completeness of information in this document.
== END 2025-01-15 13:38 | disposition home or self-care (01) ==
PROVIDERS: PCP Family Medicine; Visit Provider Family Medicine
DX: R01.1 Cardiac murmur, unspecified (principal); R07.89 Other chest pain
CPT/HCPCS: 93306